=== PATIENT | female | born 1950 | race Caucasian/White ===

== ENCOUNTER → 2018-04-22 | Outpatient (CLI) | payer MEDICARE ==
--- NOTE | 2018-04-22 12:54 | KCIC ---
MRI Lumbar Spine without contrast History: Low back pain, left leg pain Technique: Multiplanar, multi sequential noncontrast MR imaging was performed of the lumbar spine. Contrast: None Comparison: None Findings: Lumbar vertebral body stature and AP alignment are preserved. There is no significant marrow edema. Intervertebral disc spaces are relatively preserved, mild disc desiccation L5-S1 and to lesser degree at L3-L4 and L1-2. Conus terminates at L1. There is a small posterior annular tear at L2-L3. L1-L2: There is negligible disc osteophyte complex. Neural foramina and spinal canal are adequate. There is mild buckling of the ligamentum flavum. L2-L3: Spinal canal and neural foramina are adequate. L3-L4: There is minimal buckling of the ligamentum flavum and facet degenerative change. Spinal canal and neural foramina are adequate. There is small right posterior annular tear. L4-L5: There is mild facet degenerative change. Neural foramina and spinal canal are adequate. L5-S1: There is mild facet degenerative change. Spinal canal is adequate. There is mild posterior narrowing of the right neural foramen, left neural foramen adequate. Impression: 1. There is no significant lumbar spinal stenosis. There is mild narrowing of the right L5-S1 neural foramen. Electronically signed by: Gallo Streeter MD (04/22/2018 12:51 PM) [email or web address]
== END ==
LOC: KCIC MRI 11:58
PROVIDERS: ATTEND Orthopaedic Surgery
DX: M48.07 Spinal stenosis, lumbosacral region (principal); M25.562 Pain in left knee; M79.605 Pain in left leg
CPT/HCPCS: 72148

== ENCOUNTER → 2018-08-19 | Outpatient (CLI) | payer MEDICARE ==
--- NOTE | 2018-08-20 17:12 | SLEEP ---
DATE OF STUDY: 08/19/2018 HOME POLYSOMNOGRAM REPORT OBJECTIVE: The patient is a 67-year-old female with hypersomnia, observed apnea, cardiac disease. Height 63 inches, weight 255 pounds, BMI 45.2 pounds per square inch. Meridian sleep score 8. INTERPRETATION: This is a home study. The apnea-hypopnea index is 18.6 events per hour of sleep. The minimum oxygen saturation is 78%. Snoring occurs a total of 94.7 minutes. Mean heart rate is 49.7 beats per minute, maximum heart rate is 101 beats per minute. IMPRESSION: Abnormal home sleep study showing significant elevation of the apnea/hypopnea index. RECOMMENDATIONS: The patient should be started on CPAP. She could be prescribed automatic CPAP, perhaps with an initial range of 5-15 cm or alternatively she could be returned to the sleep lab for an attended CPAP titration study. The patient should also pursue weight loss and avoid sedatives and alcohol. Thank you for letting us help with the patient's care. RATNA CHATMAN MD DR: SANTO/carroll JOB#: [id number] / [id number] GLENDA Lee MD
== END | disposition home or self-care (01) ==
LOC: RT 10:38
PROVIDERS: ATTEND Internal Medicine Cardiovascular Disease
DX: G47.10 Hypersomnia, unspecified (principal); G47.30 Sleep apnea, unspecified
CPT/HCPCS: G0399

== ENCOUNTER → 2019-04-06 | Outpatient (CLI) | payer MEDICARE ==
--- NOTE | 2019-04-06 10:37 | RAD ---
CT ABDOMEN PELVIS WO CONTRAST History: Splenic artery aneurysm Technique: Noncontrast examination of the abdomen and pelvis. Coronal and sagittal reconstructions were performed. Exposure: One or more of the following individualized dose reduction techniques were utilized for this examination: 1. Automated exposure control 2. Adjustment of the mA and/or kV according to patient size 3. Use of iterative reconstruction technique. Comparison: None. Findings: Lower chest: Calcified bilateral lower lobe pulmonary nodules, likely related to primary illness disease. No consolidation or pleural effusion. Small hiatal hernia. Abdomen and pelvis: Partially calcified lobulated splenic artery aneurysm measures approximately 1.3 x 0.9 cm. Unremarkable noncontrast appearance of the liver, splenic parenchyma, and adrenal glands. Age-related fatty atrophy of the pancreas. No focal mass. No biliary ductal dilatation. Prior cholecystectomy. Normal appearance of the kidneys. No hydronephrosis. No renal, ureteral or urinary bladder stone. Normal appendix. No evidence of bowel obstruction. No pathologic lymphadenopathy. No ascites. Pelvic contents are unremarkable. Bones: No pathologic osseous lesions. Impression: 1. Small partially calcified splenic artery aneurysm. 2. Small hiatal hernia. Electronically signed by: Juarez Marcus DO (04/06/2019 10:34 AM) [facility]
--- NOTE | 2019-04-06 12:06 | CARD ---
MR#: [id number] Date of Study: 04/06/2019 Ordering Physician: GLENDA TORRES, Referring Physician: GLENDA TORRES, Tech: Mela Thomas APPROVED REPORT EXAM: Two-dimensional and M-mode echocardiogram with Doppler and color Doppler. Other Information Quality : Average Technically limited study due to body habitus. INDICATION Atrial Fibrillation RISK FACTORS Hypertension 2D DIMENSIONS RVDd3.3 (2.9-3.5cm)Left Atrium(2D)4.0 (1.6-4.0cm) IVSd1.0 (0.7-1.1cm)Aortic Root(2D)3.0 (2.0-3.7cm) LVDd5.4 (3.9-5.9cm)LVOT Diameter2.0 (1.8-2.4cm) PWd1.2 (0.7-1.1cm)LVDs3.3 (2.5-4.0cm) FS (%) 38.6 %SV97.5 ml LVEF(%)68.4 (>50%) Aortic Valve AoV Peak Ryan.125.9cm/sAoV VTI28.4cm AO Peak GR.6.3mmHgLVOT Peak Ryan.77.0cm/s LVOT VTI 18.18cmAO Mean GR.3mmHg TRICE (VMAX)1.06xx5LZH (VTI)2.00cm2 Mitral Valve MV E Uggiocyq731.7cm/sMV DECEL ORYY148mb MV A Xskitqqq79.4cm/sMV XBF63xv E/A Ratio4.8MVA (PHT)4.99cm2 TDI E/Lateral E'12.9E/Medial E'9.8 Pulmonary Valve PV Peak Umlyskkn35.4cm/sPV Peak Grad.3mmHg Tricuspid Valve TR P. Txycevai255xd/sRAP XRIXYCSB4vrAw TR Peak Gr.65geJtLLZF27cnQc Pulmonary Vein S1 Qoxzozpt82.8cm/sD2 Atcolror31.7cm/s PVa vnicwwgv60erxp LEFT VENTRICLE The left ventricle is normal size. There is mild to moderate concentric left ventricular hypertrophy. The left ventricular systolic function is normal and the ejection fraction is within normal range. T he Ejection Fraction is 50-55%. There is grossly normal LV segmental wall motion. Tissue Doppler imag ing reveals moderate left ventricular diastolic dysfunction. RIGHT VENTRICLE The right ventricle is borderline dilated. There is normal right ventricular wall thickness. The righ t ventricular systolic function is normal. ATRIA The left atrium is moderately dilated. The right atrium is moderately dilated. The interatrial septum is intact with no evidence for an atrial septal defect or patent foramen ovale as noted on 2-D or Do ppler imaging. AORTIC VALVE The aortic valve is normal in structure and function. Doppler and Color Flow revealed no significant aortic regurgitation. There is no significant aortic valvular stenosis. MITRAL VALVE The mitral valve is thickened but opens well. There is no evidence of mitral valve prolapse. There is no mitral valve stenosis. Doppler and Color-flow revealed trace mitral regurgitation. TRICUSPID VALVE The tricuspid valve is normal in structure and function. Doppler and Color Flow revealed moderate tri cuspid regurgitation with an estimated PAP of 36 mmHg. There is no tricuspid valve prolapse or vegeta tion. There is no tricuspid valve stenosis. PULMONIC VALVE The pulmonic valve is not well visualized. Doppler and Color Flow revealed trace to mild pulmonic yoav vular regurgitation. There is no pulmonic valvular stenosis. GREAT VESSELS The aortic root is normal in size. The IVC is normal in size and collapses >50% with inspiration. PERICARDIAL EFFUSION There is no evidence of significant pericardial effusion. Critical Notification Critical Value: No <Conclusion> The left ventricular systolic function is normal and the ejection fraction is within normal range. Th e Ejection Fraction is 50-55%. There is grossly normal LV segmental wall motion. The right ventricle is borderline dilated. Doppler and Color Flow revealed moderate tricuspid regurgitation with an estimated PAP of 36 mmHg. Signed by : Glenda Torres, Electronically Approved : 04/06/2019 12:06:22
== END | disposition home or self-care (01) ==
LOC: CT 08:24
PROVIDERS: ATTEND Internal Medicine Cardiovascular Disease
DX: I08.8 Other rheumatic multiple valve diseases (principal); I72.8 Aneurysm of other specified arteries; K44.9 Diaphragmatic hernia without obstruction or gangrene; R91.8 Other nonspecific abnormal finding of lung field; K86.89 Other specified diseases of pancreas; Z90.49 Acquired absence of other specified parts of digestive tract
CPT/HCPCS: 74176; 93306

== ENCOUNTER 2020-01-28 09:08 | Emergency (ER) | payer MEDICARE ==
[~2020-01-28] VITALS: Ht 160 cm; Wt 115.0 kg
[~2020-01-28 09:08] MED LIST: ACET500T68 PO; APIX5TAB PO; CHOL500062 PO; CYAN50008 PO; GABA300C18 PO; LISI-338 PO; METO50TA6 PO; OMEG-117 PO; PANT40TA77 PO; TRAM50TA PO; [UNRECOGNIZED DRUG - OTHER] PO; occuvite PO
[2020-01-28] MEDS ORDERED: IV NORMAL SALINE 1000ML BAG 1,000 ML IV ONE (10:15)
[2020-01-28 10:18] LABS: BASO # 0.1 x10^3/uL (0.0-0.2); BASO % 1 % (0-3); EOS # 0.1 x10^3/uL (0.0-0.7); EOS % 1 % (0-3); HEMATOCRIT 40.6 % (36.0-47.0); HEMOGLOBIN 13.6 g/dL (12.0-15.5); LYMPH # 1.3 x10^3/uL (1.0-4.8); LYMPH % 10 % (24-48); MEAN CORPUSCULAR HEMOGLOBIN 29 pg (25-35); MEAN CORPUSCULAR HGB CONC 34 g/dL (31-37); MEAN CORPUSCULAR VOLUME 87 fL (79-100); MONO # 0.8 x10^3/uL (0.0-1.1); MONO % 6 % (0-9); NEUT # 10.5 x10^3/uL (1.8-7.7); NEUT % 83 % (31-73); PLATELET COUNT 329 x10^3/uL (140-400); RED BLOOD COUNT 4.66 x10^6/uL (3.50-5.40); RED CELL DISTRIBUTION WIDTH 13.7 % (11.5-14.5); WHITE BLOOD COUNT 12.8 x10^3/uL (4.0-11.0)
--- NOTE | 2020-01-28 10:25 | RAD ---
EXAM: Chest, single view. HISTORY: Shortness of air. COMPARISON: 11/02/2019 FINDINGS: A frontal view of the chest is obtained. There is no infiltrate, pleural effusion or pneumothorax. There is a prominent cardiac silhouette, a component of which is accentuated due to portable technique. IMPRESSION: No acute pulmonary finding. Electronically signed by: Trinidad Whelan MD (01/28/2020 10:22 AM) [id number]
[2020-01-28 10:33] LABS: CALCIUM 8.9 mg/dL (8.5-10.1); CREATININE 1.4 mg/dL (0.6-1.0); GFR 37.5; POTASSIUM 4.3 mmol/L (3.5-5.1)
[2020-01-28 10:37] LABS: ALBUMIN 3.6 g/dL (3.4-5.0); ALBUMIN/GLOBULIN RATIO 0.9 (1.0-1.7); MAGNESIUM 1.7 mg/dL (1.8-2.4); TOTAL BILIRUBIN 0.3 mg/dL (0.2-1.0); TOTAL PROTEIN 7.4 g/dL (6.4-8.2)
--- NOTE | 2020-01-28 10:39 | EKG ---
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
[2020-01-28 10:40] LABS: BILIRUBIN,URINE NEGATIVE (NEG); CLARITY,URINE CLEAR; COLOR,URINE YELLOW; NITRITE,URINE NEGATIVE (NEG); PROTEIN,URINE NEGATIVE (NEG-TRACE); UROBILINOGEN,URINE 0.2 mg/dL (0.2 mg/dL)
--- NOTE | 2020-01-28 10:45 | RAD ---
EXAM: Head CT without contrast. HISTORY: Altered mental status. TECHNIQUE: Computed tomographic images of the head were obtained without contrast. *One or more of the following individualized dose reduction techniques were utilized for this examination: 1. Automated exposure control. 2. Adjustment of the mA and/or kV according to patient size. 3. Use of iterative reconstruction technique. COMPARISON: 11/02/2019. FINDINGS: There is no acute or subacute extra-axial or intraparenchymal hemorrhage. There is no mass effect or midline shift. There is no hydrocephalus. There are areas of decreased attenuation within the cerebral white matter, nonspecific and likely related to chronic small vessel disease. The visualized portions of the orbits, paranasal sinuses and mastoid air cells are unremarkable. No suspicious calvarial lesion is seen. IMPRESSION: No acute intracranial finding. Note is made that MRI is more sensitive for acute infarction. Electronically signed by: Trinidad Whelan MD (01/28/2020 10:42 AM) [id number]
[2020-01-28 10:52] LABS: BACTERIA,URINE 0 /HPF (0-FEW); RBC,URINE 0 /HPF (0-2); SQUAMOUS EPITHELIAL CELL,UR FEW /LPF; WBC,URINE 0 /HPF (0-4)
--- NOTE | 2020-01-28 11:30 | PHYS DOC ---
Past Medical History Past Medical History: CAD, GERD, High Cholesterol, Renal Disease Past Surgical History: Cholecystectomy, Smoking Status: Never Smoker Alcohol Use: None Adult General Chief Complaint Chief Complaint: MULTIPLE COMPLAINTS [facility] HPI Patient is a 69 year old female with history of permanent A. fib who presents with intermittent daily palpitations dizziness and shortness of breath upon standing with exertion. Patient currently asymptomatic Symptom onset was 4 days ago. Patient reports fast pounding heart rate which is resolved with rest. Denies chest pain chest tightness, leg pain or swelling. Patient is currently anticoagulated on Eliquis. No recent illnesses. No other acute symptoms or complaints. Denies history of CAD and CHF. . 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 [] Review of Systems Review of Systems Review of symptoms as per HPI. All other review of symptoms are negative. All other systems were reviewed and found to be within normal limits, except as documented in this note. Current Medications Current Medications Current Medications Medications (Trade) Dose Ordered Sig/Abdoulaye Start Time Stop Time Status Last Admin Dose Admin Sodium Chloride 1,000 ml @ 1,000 mls/hr 1X ONCE 01/28/20 10:15 01/28/20 11:14 DC 01/28/20 10:15 1,000 MLS/HR Allergies Allergies Allergies Coded Allergies Type Severity Reaction Last Updated Verified erythromycin base Allergy Mild "HURTS MY STOMACH REAL BAD" 11/02/19 Yes Physical Exam Physical Exam Constitutional: Well developed, well nourished, no acute distress, non-toxic appearance. [] HENT: Normocephalic, atraumatic, bilateral external ears normal, oropharynx moist, no oral exudates, nose normal. [] Eyes: PERRLA, EOMI, conjunctiva normal, no discharge. [] Neck: Normal range of motion, no tenderness, supple, no stridor. [] Cardiovascular:Heart rate regular rhythm, no murmur [] Lungs & Thorax: Bilateral breath sounds clear to auscultation [] Abdomen: Bowel sounds normal, soft, no tenderness. [] Skin: Warm, dry, no erythema, no rash. [] Back: No tenderness, no CVA tenderness. [] Extremities: No tenderness, no cyanosis, no clubbing, ROM intact, no edema. [] Neurologic: Alert and oriented X 3, normal motor function, normal sensory function, no focal deficits noted. [] Psychologic: Affect normal, judgement normal, mood normal. [] Current Patient Data Vital Signs Vital Signs Date Time Temp Pulse Resp B/P (MAP) Pulse Ox O2 Delivery O2 Flow Rate FiO2 01/28/20 12:16 68 144/85 (104) 98 Room Air 01/28/20 09:16 97.8 16 97.8 Lab Values Laboratory Tests Test 01/28/20 09:20 01/28/20 10:25 White Blood Count 12.8 x10^3/uL (4.0-11.0) H Red Blood Count 4.66 x10^6/uL (3.50-5.40) Hemoglobin 13.6 g/dL (12.0-15.5) Hematocrit 40.6 % (36.0-47.0) Mean Corpuscular Volume 87 fL (79-100) Mean Corpuscular Hemoglobin 29 pg (25-35) Mean Corpuscular Hemoglobin Concent 34 g/dL (31-37) Red Cell Distribution Width 13.7 % (11.5-14.5) Platelet Count 329 x10^3/uL (140-400) Neutrophils (%) (Auto) 83 % (31-73) H Lymphocytes (%) (Auto) 10 % (24-48) L Monocytes (%) (Auto) 6 % (0-9) Eosinophils (%) (Auto) 1 % (0-3) Basophils (%) (Auto) 1 % (0-3) Neutrophils # (Auto) 10.5 x10^3/uL (1.8-7.7) H Lymphocytes # (Auto) 1.3 x10^3/uL (1.0-4.8) Monocytes # (Auto) 0.8 x10^3/uL (0.0-1.1) Eosinophils # (Auto) 0.1 x10^3/uL (0.0-0.7) Basophils # (Auto) 0.1 x10^3/uL (0.0-0.2) Sodium Level 141 mmol/L (136-145) Potassium Level 4.3 mmol/L (3.5-5.1) Chloride Level 103 mmol/L (98-107) Carbon Dioxide Level 27 mmol/L (21-32) Anion Gap 11 (6-14) Blood Urea Nitrogen 15 mg/dL (7-20) Creatinine 1.4 mg/dL (0.6-1.0) H Estimated GFR (Cockcroft-Gault) 37.5 BUN/Creatinine Ratio 11 (6-20) Glucose Level 132 mg/dL (70-99) H Calcium Level 8.9 mg/dL (8.5-10.1) Magnesium Level 1.7 mg/dL (1.8-2.4) L Total Bilirubin 0.3 mg/dL (0.2-1.0) Aspartate Amino Transferase (AST) 16 U/L (15-37) Alanine Aminotransferase (ALT) 23 U/L (14-59) Alkaline Phosphatase 105 U/L (46-116) Troponin I Quantitative < 0.017 ng/mL (0.000-0.055) Total Protein 7.4 g/dL (6.4-8.2) Albumin 3.6 g/dL (3.4-5.0) Albumin/Globulin Ratio 0.9 (1.0-1.7) L Urine Collection Type Unknown Urine Color Yellow Urine Clarity Clear Urine pH 6.0 (<5.0-8.0) Urine Specific [place] 1.010 (1.000-1.030) Urine Protein Negative mg/dL (NEG-TRACE) Urine Glucose (UA) Negative mg/dL (NEG) Urine Ketones (Stick) Negative mg/dL (NEG) Urine Blood Negative (NEG) Urine Nitrite Negative (NEG) Urine Bilirubin Negative (NEG) Urine Urobilinogen Dipstick 0.2 mg/dL (0.2 mg/dL) Urine Leukocyte Esterase Negative (NEG) Urine RBC 0 /HPF (0-2) Urine WBC 0 /HPF (0-4) Urine Squamous Epithelial Cells Few /LPF Urine Bacteria 0 /HPF (0-FEW) Laboratory Tests 01/28/20 09:20 Laboratory Tests 01/28/20 09:20 EKG EKG [EKG: reviewed] Radiology/Procedures Radiology/Procedures [Ct head: NAD CXR: NAD] Course & Med Decision Making Course & Med Decision Making Pertinent Labs and Imaging studies reviewed. (See chart for details) [EKG, lab imaging nondiagnostic. Orthostatic vital signs negative. Patient asymptomatic in the ED. Cardiology service to see the emergency department set patient up for outpatient Holter monitor.] Dragon Disclaimer Dragon Disclaimer This electronic medical record was generated, in whole or in part, using a voice recognition dictation system. Departure Departure Impression: Primary Impression: Palpitations Disposition: ADMITTED INPATIENT Condition: STABLE Referrals: ANTHONY NICHOLSON MD (PCP) KENIA GARCÍA DO January 28, 2020 11:30
[2020-01-28 12:16] VITALS: BP 144/85
== END 2020-01-28 12:22 | disposition home or self-care (01) ==
LOC: ER 09:08
DX: R00.2 Palpitations (principal); R06.02 Shortness of breath; R42 Dizziness and giddiness; I48.20 Chronic atrial fibrillation, unspecified; K21.9 Gastro-esophageal reflux disease without esophagitis; E78.00 Pure hypercholesterolemia, unspecified; Z90.49 Acquired absence of other specified parts of digestive tract; Z98.890 Other specified postprocedural states; Z88.1 Allergy status to other antibiotic agents
CPT/HCPCS: 36415; 70450; 71045; 80053; 81001; 83735; 84484; 85025; 93005; 96360; 96361; 99285; J7030

== ENCOUNTER → 2020-03-31 | Outpatient (CLI) | payer MEDICARE | END | disposition home or self-care (01) | LOC: LAB 13:57 | PROVIDERS: ATTEND Internal Medicine Cardiovascular Disease | DX: Z11.59 Encounter for screening for other viral diseases (principal) | CPT/HCPCS: U0003-CS ==

== ENCOUNTER 2020-04-05 13:29 | Day surgery (SDC) | payer MEDICARE ==
[~2020-04-05 13:29] MED LIST changes: +BENZOCAINE ONE 20% MUCOSAL SPRAY. MM; +IV RINGERS,LACTATED 1000ML 1,000 ML IV SCH; +LIDOCAINE 2% TOPICAL JELLY 30GM TUBE. TP ONE; +LIDOCAINE 2% VISCOUS 15 ML SOLUTION. SWSW ONE
--- NOTE | 2020-04-05 14:23 | EKG ---
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
[2020-04-05] MEDS ORDERED: AMIO200T4 PO (14:33)
[2020-04-05] MEDS ORDERED: PROPOFOL 10 MG/ML (20ML) VIAL. IV ONE (15:09)
[2020-04-05 15:10] LABS: HEMATOCRIT 38.9 % (36.0-47.0); RED BLOOD COUNT 4.45 x10^6/uL (3.50-5.40)
[2020-04-05] MEDS ORDERED: IV 1/2 NORMAL SALINE 1,000 ML IV SCH (15:15)
[2020-04-05 15:18] LABS: CALCIUM 8.8 mg/dL (8.5-10.1); CREATININE 1.2 mg/dL (0.6-1.0); GFR 44.8; POTASSIUM 3.8 mmol/L (3.5-5.1)
[2020-04-05 15:32] LABS: PROTHROMBIN TIME PATIENT 16.2 SEC (11.7-14.0)
--- NOTE | 2020-04-05 15:55 | EKG ---
[facility] [address] [place] [address] Test Date: 2020-04-05 Test Time: 15:53:24 Pat Name: MARICHUY SCHWARTZ Department: Room: Gender: F Rework Machine Operator: SEBASTIEN : 1950 Requested By: GLENDA LERNER Order Number: [id number] Reading MD: Measurements Intervals [place] Rate: 70 P: 50 [place]: 158 QRS: 35 QRSD: 74 T: 27 QT: 452 QTc: 491 Interpretive Statements SINUS RHYTHM PROLONGED QT NO SPECIFIC ECG ABNORMALITIES RI6.02 Compared to ECG 04/05/2020 14:18:00 T-wave abnormality no longer present
[2020-04-05 16:20] VITALS: BP 116/61
--- NOTE | 2020-04-05 16:56 | CARD ---
MR#: [id number] Date of Study: 04/05/2020 Ordering Physician: GLENDA TORRES, Referring Physician: GLENDA TORRES, Tech: Mela Thomas APPROVED REPORT EXAM: Transesophageal echocardiogram with color flow Doppler and Synchronized Cardioversion. INDICATION Atrial Fibrillation RISK FACTORS Hypertension Tricuspid Valve TR P. Ajzycxdr848bs/sRAP [id number] TR Peak Gr.46yaXhHIYR16pjNs Reason For Test : Rule out Intracardiac Thrombus. PROCEDURE After obtaining informed consent, patient underwent transesophageal echo in the PACU. Type of Sedation : General Anesthesia Sedation was administered by Ethel Ornelas. Sedation was achieved with Propofol 200mg intravenously. Transesophageal probe was inserted and advanced into esophagus by Malik Torres MD. The MIL was performed without complications. Synchronized Cardioversion attempted: Successful Synchronized Cardioversion acheived with Joules after 2 attempt(s). Throughout the procedure, the blood pressure, pulse oximetry, cardiac rhythm, and rate were monitored . The patient tolerated the procedure without adverse effects. Recovery from general anesthesia was une ventful and vital signs were stable. LEFT VENTRICLE The left ventricle is normal size. There is normal left ventricular wall thickness. The left ventricu lar systolic function is normal and the ejection fraction is within normal range. The Ejection Fracti on is 55%. There is normal LV segmental wall motion. Tissue Doppler imaging reveals moderate left wanda tricular diastolic dysfunction. No left ventricle thrombus noted on this study. RIGHT VENTRICLE The right ventricle is normal size. There is normal right ventricular wall thickness. The right ventr icular systolic function is normal. ATRIA The left atrium size is normal. The right atrium size is normal. The interatrial septum is intact wit h no evidence for an atrial septal defect or patent foramen ovale as noted on 2-D or Doppler imaging. There is no thrombus noted in the left atrial appendage. AORTIC VALVE The aortic valve is normal in structure and function. Doppler and Color Flow revealed trace aortic re gurgitation. There is no significant aortic valvular stenosis. MITRAL VALVE The mitral valve is normal in structure and function. There is no evidence of mitral valve prolapse. There is no mitral valve stenosis. TRICUSPID VALVE The tricuspid valve is normal in structure and function. Doppler and Color Flow revealed trace tricus pid regurgitation. There is no tricuspid valve stenosis. PULMONIC VALVE The pulmonic valve is not well visualized. GREAT VESSELS The aortic root is normal in size. PERICARDIAL EFFUSION There is no evidence of significant pericardial effusion. There is no pleural effusion. Critical Notification Critical Value: No <Conclusion> The left ventricular systolic function is normal and the ejection fraction is within normal range. Th e Ejection Fraction is 55%. There is normal LV segmental wall motion. Signed by : Glenda Torres, Electronically Approved : 04/05/2020 16:55:42
== END 2020-04-05 16:35 | disposition home or self-care (01) ==
LOC: SURG 13:29
PROVIDERS: ATTEND Internal Medicine Cardiovascular Disease
DX: I48.92 Unspecified atrial flutter (principal); I48.91 Unspecified atrial fibrillation; I10 Essential (primary) hypertension; Z79.899 Other long term (current) drug therapy; Z87.891 Personal history of nicotine dependence
CPT/HCPCS: 36415; 80048; 85027; 85610; 85730; 92960; 93005; 93312; 93320; 93325; J2704

== ENCOUNTER 2020-12-23 11:05 | Inpatient (IN) | payer MEDICARE ==
[~2020-12-23] VITALS: Ht 160 cm; Wt 123.5 kg
[~2020-12-23 11:05] MED LIST changes: +AMIO200T6 PO; -BENZOCAINE ONE 20% MUCOSAL SPRAY. MM; -IV RINGERS,LACTATED 1000ML 1,000 ML IV SCH; -LIDOCAINE 2% TOPICAL JELLY 30GM TUBE. TP ONE; -LIDOCAINE 2% VISCOUS 15 ML SOLUTION. SWSW ONE; -LISI-338 PO; +LISI-517 PO
--- NOTE | 2020-12-23 11:58 | RAD ---
EXAM: Chest, single view. HISTORY: Chest pain. COMPARISON: 01/28/2020 FINDINGS: A frontal view of the chest is obtained. There is no infiltrate, pleural effusion or pneumo thorax. There is a prominent cardiac silhouette. There is a calcified granuloma within the left lower lobe. IMPRESSION: No acute pulmonary finding. Prominent cardiac silhouette. Electronically signed by: Trinidad Whelan MD (12/23/2020 11:56 AM) [id number]
[2020-12-23 11:59] LABS: BASO # 0.1 x10^3/uL (0.0-0.2); BASO % 1 % (0-3); EOS # 0.1 x10^3/uL (0.0-0.7); EOS % 1 % (0-3); HEMATOCRIT 35.8 % (36.0-47.0); HEMOGLOBIN 11.8 g/dL (12.0-15.5); LYMPH % 12 % (24-48); MEAN CORPUSCULAR HEMOGLOBIN 29 pg (25-35); MEAN CORPUSCULAR HGB CONC 33 g/dL (31-37); MEAN CORPUSCULAR VOLUME 89 fL (79-100); MONO # 0.5 x10^3/uL (0.0-1.1); MONO % 7 % (0-9); NEUT # 6.5 x10^3/uL (1.8-7.7); NEUT % 80 % (31-73); PLATELET COUNT 243 x10^3/uL (140-400); RED BLOOD COUNT 4.05 x10^6/uL (3.50-5.40); RED CELL DISTRIBUTION WIDTH 13.5 % (11.5-14.5); WHITE BLOOD COUNT 8.2 x10^3/uL (4.0-11.0)
[2020-12-23 12:02] LABS: CALCIUM 8.4 mg/dL (8.5-10.1); CREATININE 1.4 mg/dL (0.6-1.0); GFR 37.4
[2020-12-23 12:09] LABS: ALBUMIN 3.3 g/dL (3.4-5.0); ALBUMIN/GLOBULIN RATIO 0.8 (1.0-1.7); MAGNESIUM 2.1 mg/dL (1.8-2.4); TOTAL BILIRUBIN 0.4 mg/dL (0.2-1.0); TOTAL PROTEIN 7.5 g/dL (6.4-8.2)
[2020-12-23 12:10] LABS: POTASSIUM 4.9 mmol/L (3.5-5.1)
--- NOTE | 2020-12-23 12:24 | EKG ---
[facility] [address] [place] [address] Test Date: 2020-12-23 Test Time: 11:26:42 Pat Name: MARICHUY SCHWARTZ Department: Room: Gender: F Supervisor Sunglasses: : 1950 Requested By: NEREYDA PAREDES Order Number: [id number] Reading MD: Parveen Torres MD Measurements Intervals [place] Rate: 61 P: 56 MT: 164 QRS: 40 QRSD: 76 T: 29 QT: 450 QTc: 455 Interpretive Statements SINUS RHYTHM Electronically Signed On 12-24-2020 15:45:03 CDT by Parveen Torres MD
--- NOTE | 2020-12-23 12:33 | ED.ADGEN ---
Past Medical History Past Medical History: A-Fib, Anxiety, CAD, GERD, High Cholesterol, Hypertension, IBS, Renal Disease Past Surgical History: Cholecystectomy, Smoking Status: Never Smoker Alcohol Use: None General Adult EDM: Chief Complaint: SHORTNESS OF BREATH HPI: HPI: Patient is a 70 year old female, accompanied by her , who presents to the emergency room with complaints of severe shortness of breath that was worse when she is lying down since last night. Patient reports that 2 days ago she went to her primary care doctor's office and was evaluated for a persistent dry cough that she had been having and evaluation of a abscess in her left groin area. She states that her nurse practitioner squeezed the boil and got it to drain and put her on some antibiotics and gave her a shot of antibiotics at that time. Today she went back to her primary care doctor to have the abscess reevaluated and told the nurse practitioner about the increased shortness of breath, her ELECTRICAL INSTRUMENT REPAIRER advised her to go to the ER for further evaluation and concerns of a [place] embolism. Patient stated that she takes Eliquis daily because of her history of atrial fibrillation. She denied any recent lengthy travel, f lights, or major surgeries. The patient denied any previous history of DVT or PE. She denies any chest pain, palpitations, nausea, vomiting, diarrhea, abdominal pain, headache, fever, or rash. She denies any known exposure to COVID-19, she reported that she had already received 2 COVID-19 immunizations. She reports mild increased swelling of of her lower extremities without any recent injury. The patient currently denies any pain. Review of Systems: Review of Systems: Complete ROS is negative unless otherwise noted in HPI. Allergies: Allergies: Allergies Coded Allergies Type Severity Reaction Last Updated Verified cephalexin Allergy Severe HIVES 12/23/20 Yes erythromycin base Allergy Mild "HURTS MY STOMACH REAL BAD" 11/02/19 Yes Physical Exam: PE: See Above Constitutional: Well developed, well nourished, no acute distress, non-toxic appearance, morbidly obese. [] HENT: Normocephalic, atraumatic, bilateral external ears normal, nose normal. [] Eyes: PERRLA, EOMI, conjunctiva normal, no discharge. [] Neck: Normal range of motion, no stridor. [] Cardiovascular:Heart rate regular rhythm, no murmur Lungs & Thorax: Respirations even and unlabored at rest, no retractions, increased work of breathing with activity, lung sounds clear in upper lobes, diminished and coarse in bases bilaterally Abdomen: soft, no tenderness, no palpable mass, no pulsatile mass Skin: Warm, dry, no erythema, no rash. [] Extremities: No cyanosis, ROM intact, 2+ edema BLE Neurologic: Alert and oriented X 3, no focal deficits noted. [] Psychologic: Affect normal, judgement normal, mood normal. [] Current Patient Data: Labs: Laboratory Tests Test 12/23/20 11:38 12/23/20 11:50 12/23/20 11:58 12/23/20 13:13 D-Dimer (Greta) 0.58 ug/mlFEU (0.00-0.50) H White Blood Count 8.2 x10^3/uL (4.0-11.0) Red Blood Count 4.05 x10^6/uL (3.50-5.40) Hemoglobin 11.8 g/dL (12.0-15.5) L Hematocrit 35.8 % (36.0-47.0) L Mean Corpuscular Volume 89 fL (79-100) Mean Corpuscular Hemoglobin 29 pg (25-35) Mean Corpuscular Hemoglobin Concent 33 g/dL (31-37) Red Cell Distribution Width 13.5 % (11.5-14.5) Platelet Count 243 x10^3/uL (140-400) Neutrophils (%) (Auto) 80 % (31-73) H Lymphocytes (%) (Auto) 12 % (24-48) L Monocytes (%) (Auto) 7 % (0-9) Eosinophils (%) (Auto) 1 % (0-3) Basophils (%) (Auto) 1 % (0-3) Neutrophils # (Auto) 6.5 x10^3/uL (1.8-7.7) Lymphocytes # (Auto) 1.0 x10^3/uL (1.0-4.8) Monocytes # (Auto) 0.5 x10^3/uL (0.0-1.1) Eosinophils # (Auto) 0.1 x10^3/uL (0.0-0.7) Basophils # (Auto) 0.1 x10^3/uL (0.0-0.2) Free Thyroxine 1.22 ng/dL (0.76-1.46) Sodium Level 141 mmol/L (136-145) Potassium Level 4.9 mmol/L (3.5-5.1) Chloride Level 105 mmol/L (98-107) Carbon Dioxide Level 23 mmol/L (21-32) Anion Gap 13 (6-14) Blood Urea Nitrogen 23 mg/dL (7-20) H Creatinine 1.4 mg/dL (0.6-1.0) H Estimated GFR (Cockcroft-Gault) 37.4 BUN/Creatinine Ratio 16 (6-20) Glucose Level 132 mg/dL (70-99) H Calcium Level 8.4 mg/dL (8.5-10.1) L Magnesium Level 2.1 mg/dL (1.8-2.4) Total Bilirubin 0.4 mg/dL (0.2-1.0) Aspartate Amino Transferase (AST) 28 U/L (15-37) Alanine Aminotransferase (ALT) 37 U/L (14-59) Alkaline Phosphatase 89 U/L (46-116) Creatine Kinase 116 U/L (26-192) Creatine Kinase MB (Mass) 1.0 ng/mL (0.0-3.6) Creatine Kinase MB Relative Index 0.9 % (0-4) Troponin I Quantitative < 0.017 ng/mL (0.000-0.055) OB-Vlx-V-Type Natriuretic Peptide 917 pg/mL (0-124) H Total Protein 7.5 g/dL (6.4-8.2) Albumin 3.3 g/dL (3.4-5.0) L Albumin/Globulin Ratio 0.8 (1.0-1.7) L Lipase 43 U/L (73-393) L Urine Collection Type Unknown Urine Color Yellow Urine Clarity Clear Urine pH 6.0 (<5.0-8.0) Urine Specific [place] 1.010 (1.000-1.030) Urine Protein Negative mg/dL (NEG-TRACE) Urine Glucose (UA) Negative mg/dL (NEG) Urine Ketones (Stick) Negative mg/dL (NEG) Urine Blood Negative (NEG) Urine Nitrite Negative (NEG) Urine Bilirubin Negative (NEG) Urine Urobilinogen Dipstick 0.2 mg/dL (0.2 mg/dL) Urine Leukocyte Esterase Negative (NEG) Urine RBC 1-2 /HPF (0-2) Urine WBC 0 /HPF (0-4) Urine Squamous Epithelial Cells Few /LPF Urine Bacteria 0 /HPF (0-FEW) Urine Mucus Slight /LPF Laboratory Tests 12/23/20 11:50 Laboratory Tests 12/23/20 11:58 Vital Signs: Vital Signs Date Time Temp Pulse Resp B/P (MAP) Pulse Ox O2 Delivery O2 Flow Rate FiO2 12/23/20 12:53 50 186/76 (112) 95 Room Air 12/23/20 11:31 98.1 20 98.1 EKG: EK-sinus rhythm, rate 61, no STEMI, read by Dr. Ellison [] Heart Score: C/O Chest Pain: No Risk Factors: Risk Factors: DM, Current or recent (<one month) smoker, HTN, HLP, family history of CAD, obesity. Risk Scores: Score 0 - 3: 2.5% MACE over next 6 weeks - Discharge Home Score 4 - 6: 20.3% MACE over next 6 weeks - Admit for Clinical Observation Score 7 - 10: 72.7% MACE over next 6 weeks - Early Invasive Strategies Radiology/Procedures: Radiology/Procedures: PROCEDURE: CHEST AP ONLY EXAM: Chest, single view. HISTORY: Chest pain. COMPARISON: 01/28/2020 FINDINGS: A frontal view of the chest is obtained. There is no infiltrate, pleural effusion or pneumothorax. There is a prominent cardiac silhouette. There is a calcified granuloma within the left lower lobe. IMPRESSION: No acute pulmonary finding. Prominent cardiac silhouette.[] Course & Med Decision Making: Course & Med Decision Making Pertinent Labs and Imaging studies reviewed. (See chart for details) [id number] with Dr. Connors who is the admitting physician, and care was assumed following discussion of patient. Will admit patient for CHF and dyspnea. Patient's vital signs stable. Patient remains afebrile, appears nontoxic, respirations even and unlabored. Patient will be admitted to the medical telemetry floor. Patient's case and plan of care also discussed with Dr. Ellison [] The patient was seen and interviewed as well as examined at the bedside. The chart was reviewed. The case was discussed. Agree with the plan of care. Salima Disclaimer: Salima Disclaimer: This electronic medical record was generated, in whole or in part, using a voice recognition dictation system. Departure Departure Impression: Primary Impression: CHF (congestive heart failure) Additional Impression: Dyspnea Disposition: ADMITTED INPATIENT Admitting Physician: SOLEDAD Condition: STABLE Referrals: ANTHONY NICHOLSON MD (PCP) Problem Qualifiers Primary Impression: CHF (congestive heart failure) Heart failure type: unspecified Heart failure chronicity: unspecified Qualified Codes: I50.9 - Heart failure, unspecified Additional Impression: Dyspnea Dyspnea type: unspecified Qualified Codes: R06.00 - Dyspnea, unspecified NEREYDA PAREDES [employer]OTE[employer] DEPARTMENT MANAGER Dec 23, 2020 12:33 ALFONZO NARVAEZ DO Dec 24, 2020 04:35
[2020-12-23 13:22] LABS: BILIRUBIN,URINE NEGATIVE (NEG); CLARITY,URINE CLEAR; COLOR,URINE YELLOW; NITRITE,URINE NEGATIVE (NEG); PROTEIN,URINE NEGATIVE (NEG-TRACE); UROBILINOGEN,URINE 0.2 mg/dL (0.2 mg/dL)
--- NOTE | 2020-12-23 13:40 | PDOC1 ---
History and Physical Date of Admission Date of Admission DATE: 12/23/20 TIME: 13:38 Identification/Chief Complaint Chief Complaint DYSPNEA, SNORES AT NIGHT, POSSIBLE CHRISTINA, ACUTE CHF, orthopnea History of Present Illness History of Present Illness Seen in ER today with new onset dyspnea, has suspected CHRISTINA, known severe obesity, diabetes PRO bnp in ER = 950 CR 1.4 recent left groin abscess on amoxil and bactrim 70 YR OLD FEMALE WITH HX gerd, dry cough, cad, a-fib on eliquis, seen with orthopnea, new onset calcified granuloma within the left lower lobe KNOWN Small partially calcified splenic artery aneurysm. , BP POORLY CONTROLLED IN ER ckd stage 3 b Past Medical History Past Medical History Past Medical History: A-Fib, Anxiety, CAD, GERD, High Cholesterol, Hypertension, IBS, Renal Disease Past Surgical History: Cholecystectomy, Smoking Status: Never Smoker Alcohol Use: None fhx obesity Cardiovascular: AFIB, HTN Pulmonary: Other GI: GERD Psych: Anxiety Musculoskeletal: Osteoarthritis Infectious disease: No pertinent hx Renal/: Chronic renal insuff Endocrine: Diabetes Past Surgical History Past Surgical History: Hernia Repair Family History Family History: High Cholestrol, Hypertension Social History Smoke: No ALCOHOL: none Drugs: None Current Medications Current Medications Active Scripts Active Reported Amiodarone Hcl 200 Mg Tablet 200 Mg PO DAILY Eliquis (Apixaban) 5 Mg Tablet 5 Mg PO BID [spectravite women's] 2 Tab.chew PO DAILY Gabapentin (Gabapentin) 300 Mg Capsule 300 Mg PO TID Lisinopril 5 Mg Tablet 20 Mg PO DAILY Pantoprazole Sodium (Pantoprazole Sodium) 40 Mg Tablet.dr 40 Mg PO BID Metoprolol Tartrate 50 Mg Tablet 50 Mg PO BID Acetaminophen 500 Mg Tablet 500 Mg PO PRN Q4-6HRS PRN Tramadol Hcl 50 Mg Tablet 50 Mg PO PRN Q8HRS PRN [occuvite] 1 Tab PO DAILY Vitamin B12 (Cyanocobalamin (Vitamin B-12)) 5,000 Mcg Tab.rapdis 1,000 Mcg PO DAILY Vitamin D3 (Cholecalciferol (Vitamin D3)) 5,000 Unit Tab.rapdis 5,000 Unit PO DAILY Fish Oil 1,200 mg Softgel ([place]-3/Dha/Epa/Fish Oil) 1 Each Capsule.dr 1 Each PO DAILY Allergies Allergies: Coded Allergies: cephalexin (Verified Allergy, Severe, HIVES, 12/23/20) erythromycin base (Verified Allergy, Mild, "HURTS MY STOMACH REAL BAD", 11/02/19) ROS Review of System new onset orthopnea General: YES: Fatigue PSYCHOLOGICAL ROS: No: Anxiety, Behavioral Disorder, Concentration difficultie, Decreased libido, Depression, Disorientation, Hallucinations, Hostility, Irritablity, Memory difficulties, Mood Swings, Obsessive thoughts, Physical abuse, Sexual abuse, Sleep disturbances, Suicidal ideation, Other Eyes: No Blurry vision, No Decreased vision, No Double vision, No Dry eyes, No Excessive tearing, No Eye Pain, No Itchy Eyes, No Loss of vision, No Photophobia, No Scotomata, No Uses contacts, No Uses glasses, No Other HEENT: No: Heacaches, Visual Changes, Hearing change, Nasal congestion, Nasal discharge, Oral lesions, Sinus pain, Sore Throat, Epistaxis, Sneezing, Snoring, Tinnitus, Vertigo, Vocal changes, Other ALLERGY AND IMMUNOLOGY: No: Hives, Insect Bite Sensitivity, Itchy/Watery Eyes, Nasal Congestion, Post Nasal Drip, Seasonal Allergies, Other ENDOCRINE: No: Breast Changes, Galactorrhea, Hair Pattern Changes, Hot Flashes, Malaise/lethargy, Mood Swings, Palpitations, Polydipsia/polyuria, Skin Changes, Temperature Intolerance, Unexpected Weight Changes, Other Respiratory: YES: Cough, Orthopnea, Shortness of breath, SOB with excertion; No: Hemoptysis, Pleuritic Pain, Sputum Changes, Stridor, Tachypnea, Wheezing, Other Cardiovascular: yes Orthopnea; No Chest Pain, No Palpitations, No Paroxysmal Noc. Dyspnea, No Edema, No Lt Headedness, No Other Gastrointestinal: No Nausea, No Vomiting, No Abdominal Pain, No Diarrhea, No Constipation, No Melena, No Hematochezia, No Other Genitourinary: No Dysuria, No Frequency, No Incontinence, No Hematuria, No Retention, No Discharge, No Urgency, No Pain, No Flank Pain, No Other, No , No , No , No , No , No , No Musculoskeletal: No Gait Disturbance, No Joint Pain, No Joint Stiffness, No Joint Swelling, No Muscle Pain, No Muscular Weakness, No Pain In:, No Swelling In:, No Other Neurological: No Behavorial Changes, No Bowel/Bladder ControlChng, No Confusion, No Dizziness, No Gait Disturbance, No Headaches, No Impaired Coord/balance, No Memory Loss, No Numbness/Tingling, No Seizures, No Speech Problems, No Tremors, No Visual Changes, No Weakness, No Other Skin: Yes Skin Lesion Changes; No Dry Skin, No Eczema, No Hair Changes, No Lumps, No Mole Changes, No Mo ttling, No Nail Changes, No Pruritus, No Rash, No Other, No Acne Physical Exam Physical Exam Constitutional: Well developed, well nourished, no acute distress, non-toxic appearance. [] HENT: Normocephalic, atraumatic, bilateral external ears normal, oropharynx moist, no oral exudates, nose normal. [] Eyes: PERRLA, EOMI, conjunctiva normal, no discharge. [] Neck: Normal range of motion, no tenderness, supple, no stridor. [] Cardiovascular:Heart rate regular rhythm, no murmur [] Lungs & Thorax: Bilateral breath sounds clear to auscultation [] Abdomen: Bowel sounds normal, soft, no tenderness, no masses, no pulsatile masses. [] Skin: Warm, dry, no erythema, no rash. [] Back: No tenderness, no CVA tenderness. [] Extremities: No tenderness, no cyanosis, no clubbing, ROM intact, no edema. [] Neurologic: Alert and oriented X 3, normal motor function, normal sensory function, no focal deficits noted. [] Psychologic: Affect normal, judgment normal, mood normal. [] General: Alert, Oriented X3, Cooperative, No acute distress HEENT: Atraumatic, EOMI, Mucous membr. moist/pink Lungs: Clear to auscultation, Normal air movement Heart: RRR, no thrills, no gallops Breasts: Not examined Abdomen: Normal bowel sounds Rectal Exam: not examined, deferred Extremities: No clubbing, No cyanosis Neuro: Normal speech, Strength at 5/5 X4 ext, Cranial nerves 3-12 NL Psych/Mental Status: Mental status NL, Mood NL Vitals Vitals Vital Signs Date Time Temp Pulse Resp B/P (MAP) Pulse Ox O2 Delivery O2 Flow Rate FiO2 12/23/20 11:58 54 169/80 (109) 95 Room Air 12/23/20 11:31 98.1 20 98.1 Labs Labs Laboratory Tests Test 12/23/20 11:38 12/23/20 11:50 12/23/20 11:58 D-Dimer (Greta) 0.58 ug/mlFEU (0.00-0.50) White Blood Count 8.2 x10^3/uL (4.0-11.0) Red Blood Count 4.05 x10^6/uL (3.50-5.40) Hemoglobin 11.8 g/dL (12.0-15.5) Hematocrit 35.8 % (36.0-47.0) Mean Corpuscular Volume 89 fL (79-100) Mean Corpuscular Hemoglobin 29 pg (25-35) Mean Corpuscular Hemoglobin Concent 33 g/dL (31-37) Red Cell Distribution Width 13.5 % (11.5-14.5) Platelet Count 243 x10^3/uL (140-400) Neutrophils (%) (Auto) 80 % (31-73) Lymphocytes (%) (Auto) 12 % (24-48) Monocytes (%) (Auto) 7 % (0-9) Eosinophils (%) (Auto) 1 % (0-3) Basophils (%) (Auto) 1 % (0-3) Neutrophils # (Auto) 6.5 x10^3/uL (1.8-7.7) Lymphocytes # (Auto) 1.0 x10^3/uL (1.0-4.8) Monocytes # (Auto) 0.5 x10^3/uL (0.0-1.1) Eosinophils # (Auto) 0.1 x10^3/uL (0.0-0.7) Basophils # (Auto) 0.1 x10^3/uL (0.0-0.2) Sodium Level 141 mmol/L (136-145) Potassium Level 4.9 mmol/L (3.5-5.1) Chloride Level 105 mmol/L (98-107) Carbon Dioxide Level 23 mmol/L (21-32) Anion Gap 13 (6-14) Blood Urea Nitrogen 23 mg/dL (7-20) Creatinine 1.4 mg/dL (0.6-1.0) Estimated GFR (Cockcroft-Gault) 37.4 BUN/Creatinine Ratio 16 (6-20) Glucose Level 132 mg/dL (70-99) Calcium Level 8.4 mg/dL (8.5-10.1) Magnesium Level 2.1 mg/dL (1.8-2.4) Total Bilirubin 0.4 mg/dL (0.2-1.0) Aspartate Amino Transf (AST/SGOT) 28 U/L (15-37) Alanine Aminotransferase (ALT/SGPT) 37 U/L (14-59) Alkaline Phosphatase 89 U/L (46-116) Creatine Kinase 116 U/L (26-192) Creatine Kinase MB (Mass) 1.0 ng/mL (0.0-3.6) Creatine Kinase MB Relative Index 0.9 % (0-4) Troponin I Quantitative < 0.017 ng/mL (0.000-0.055) SY-Lqa-Z-Type Natriuretic Peptide 917 pg/mL (0-124) Total Protein 7.5 g/dL (6.4-8.2) Albumin 3.3 g/dL (3.4-5.0) Albumin/Globulin Ratio 0.8 (1.0-1.7) Lipase 43 U/L (73-393) Laboratory Tests Test 12/23/20 11:38 12/23/20 11:50 12/23/20 11:58 D-Dimer (Greta) 0.58 ug/mlFEU (0.00-0.50) White Blood Count 8.2 x10^3/uL (4.0-11.0) Red Blood Count 4.05 x10^6/uL (3.50-5.40) Hemoglobin 11.8 g/dL (12.0-15.5) Hematocrit 35.8 % (36.0-47.0) Mean Corpuscular Volume 89 fL (79-100) Mean Corpuscular Hemoglobin 29 pg (25-35) Mean Corpuscular Hemoglobin Concent 33 g/dL (31-37) Red Cell Distribution Width 13.5 % (11.5-14.5) Platelet Count 243 x10^3/uL (140-400) Neutrophils (%) (Auto) 80 % (31-73) Lymphocytes (%) (Auto) 12 % (24-48) Monocytes (%) (Auto) 7 % (0-9) Eosinophils (%) (Auto) 1 % (0-3) Basophils (%) (Auto) 1 % (0-3) Neutrophils # (Auto) 6.5 x10^3/uL (1.8-7.7) Lymphocytes # (Auto) 1.0 x10^3/uL (1.0-4.8) Monocytes # (Auto) 0.5 x10^3/uL (0.0-1.1) Eosinophils # (Auto) 0.1 x10^3/uL (0.0-0.7) Basophils # (Auto) 0.1 x10^3/uL (0.0-0.2) Sodium Level 141 mmol/L (136-145) Potassium Level 4.9 mmol/L (3.5-5.1) Chloride Level 105 mmol/L (98-107) Carbon Dioxide Level 23 mmol/L (21-32) Anion Gap 13 (6-14) Blood Urea Nitrogen 23 mg/dL (7-20) Creatinine 1.4 mg/dL (0.6-1.0) Estimated GFR (Cockcroft-Gault) 37.4 BUN/Creatinine Ratio 16 (6-20) Glucose Level 132 mg/dL (70-99) Calcium Level 8.4 mg/dL (8.5-10.1) Magnesium Level 2.1 mg/dL (1.8-2.4) Total Bilirubin 0.4 mg/dL (0.2-1.0) Aspartate Amino Transf (AST/SGOT) 28 U/L (15-37) Alanine Aminotransferase (ALT/SGPT) 37 U/L (14-59) Alkaline Phosphatase 89 U/L (46-116) Creatine Kinase 116 U/L (26-192) Creatine Kinase MB (Mass) 1.0 ng/mL (0.0-3.6) Creatine Kinase MB Relative Index 0.9 % (0-4) Troponin I Quantitative < 0.017 ng/mL (0.000-0.055) PZ-Xqc-Y-Type Natriuretic Peptide 917 pg/mL (0-124) Total Protein 7.5 g/dL (6.4-8.2) Albumin 3.3 g/dL (3.4-5.0) Albumin/Globulin Ratio 0.8 (1.0-1.7) Lipase 43 U/L (73-393) Images Images Imaging Protocol IMAGE PROTOCOL: Stress Tc-99m/rest Tc-99m 2 days Rest: Stress: Viability: Radiopharm. Tc99m Sestamibi Dose 30.5mCi Img Date 08/31/2020 Inj-Img Time 60min. Stress Admin Site: IV - Left Antecubital Assistant Professor Of Drama: RT Jeni (R)(N) STRESS DATA End Diast. Vol. 148.0ml Av. Heart Rate 58.0bpm End Syst. Vol. 44.0ml CO Index BSA 0.0L/min Myocardial Mass 176.0g Eject. Fraction 70.0% Stress Rates Pk. Fill Rate 1.81EDV/sec LVtime Pk. Fill 309.89msec Pk. Empty Rate 3.27ESV/sec LVtime Pk. Eject 141.60msec /3 Pk. Fill 1.24EDV/sec Stress Scores Regional WT 0.00 Summed WT 0.00 Regional WM 0.00 Summed WM 0.00 LV Perfusion Stress scintigraphic images did not show any significant perfusion defects. Wall Motion Normal left ventricular systolic function with ejection fraction estimated at 65%. LV Perf. Quant 17 Seg. SSS 6.00 Stress Defect Extent (% LAD) 0.00 Rest Defect Extent (% LAD) Rev. Defect Extent (% LAD) Stress Defect Extent (% LCX) 0.00 Rest Defect Extent (% LCX) Rev. Defe ct Extent (% LCX) Stress Defect Extent (% RCA) 15.60 Rest Defect Extent (% RCA) Rev. Defect Extent (% RCA) Stress Defect Extent (% FELECIA) 5.00 Rest Defect Extent (% FELECIA) Rev. Defect Extent (% FELECIA) Conclusion 1. Regadenoson cardioisotope stress test did not show any evidence of ischemia or infarct. 2. Normal left ventricular systolic function with ejection fraction calculated at 65%. 3. Low risk for cardiac events. Signed by : Jessica Aguilar, Electronically Approved : 08/31/2020 13:10:34 DICTATED and SIGNED BY: JESSICA AGUILAR MD DATE: 08/31/20 [id number] 0 Reason For Test : Rule out Intracardiac Thrombus. PROCEDURE After obtaining informed consent, patient underwent transesophageal echo in the PACU. Type of Sedation : General Anesthesia Sedation was administered by Ethel Ornelas. Sedation was achieved with Propofol 200mg intravenously. Transesophageal probe was inserted and advanced into esophagus by Malik Torres MD. The MIL was performed without complications. Synchronized Cardioversion attempted: Successful Synchronized Cardioversion acheived with 360 Joules after 2 attempt(s). Rhythm following Synchronized Cardioversion: Normal Sinus Rhythm Throughout the procedure, the blood pressure, pulse oximetry, cardiac rhythm, and rate were monitored. The patient tolerated the procedure without adverse effects. Recovery from general anesthesia was uneventful and vital signs were stable. LEFT VENTRICLE The left ventricle is normal size. There is normal left ventricular wall thickness. The left ventricular systolic function is normal and the ejection fraction is within normal range. The Ejection Fraction is 55%. There is normal LV segmental wall motion. Tissue Doppler imaging reveals moderate left ventricular diastolic dysfunction. No left ventricle thrombus noted on this study. RIGHT VENTRICLE The right ventricle is normal size. There is normal right ventricular wall thickness. The right ventricular systolic function is normal. ATRIA The left atrium size is normal. The right atrium size is normal. The interatrial septum is intact with no evidence for an atrial septal defect or patent foramen ovale as noted on 2-D or Doppler imaging. There is no thrombus noted in the left atrial appendage. AORTIC VALVE The aortic valve is normal in structure and function. Doppler and Color Flow revealed trace aortic regurgitation. There is no significant aortic valvular stenosis. MITRAL VALVE The mitral valve is normal in structure and function. There is no evidence of mitral valve prolapse. There is no mitral valve stenosis. TRICUSPID VALVE The tricuspid valve is normal in structure and function. Doppler and Color Flow revealed trace tricuspid regurgitation. There is no tricuspid valve stenosis. PULMONIC VALVE The pulmonic valve is not well visualized. GREAT VESSELS The aortic root is normal in size. PERICARDIAL EFFUSION There is no evidence of significant pericardial effusion. There is no pleural effusion. Critical Notification Critical Value: No <Conclusion> The left ventricular systolic function is normal and the ejection fraction is within normal range. The Ejection Fraction is 55%. There is normal LV segmental wall motion. Successful CVN to SR with 360 Joules Electronically Approved : 04/05/2020 16:56:21 DICTATED AND SIGNED BY: GLENDA TORRES MD DATE: 04/05/20 1658 itral Valve MV E Velocity 122.7cm/s MV DECEL TIME 152ms MV A Velocity 25.4cm/s MV PHT 44ms E/A Ratio 4.8 MVA (PHT) 4.99cm2 TDI E/Lateral E' 12.9 E/Medial E' 9.8 Pulmonary Valve PV Peak Velocity 79.4cm/s PV Peak Grad. 3mmHg Tricuspid Valve TR P. Velocity 248cm/s RAP ESTIMATE 3mmHg TR Peak Gr. 33mmHg RVSP 36mmHg Pulmonary Vein S1 Velocity 39.8cm/s D2 Velocity 73.7cm/s PVa duration 94msec LEFT VENTRICLE The left ventricle is normal size. There is mild to moderate concentric left ventricular hypertrophy. The left ventricular systolic function is normal and the ejection fraction is within normal range. The Ejection Fraction is 50-55%. There is grossly normal LV segmental wall motion. Tissue Doppler imaging reveals moderate left ventricular diastolic dysfunction. RIGHT VENTRICLE The right ventricle is borderline dilated. There is normal right ventricular wall thickness. The right ventricular systolic function is normal. ATRIA The left atrium is moderately dilated. The right atrium is moderately dilated. The interatrial septum is intact with no evidence for an atrial septal defect or patent foramen ovale as noted on 2-D or Doppler imaging. AORTIC VALVE The aortic valve is normal in structure and function. Doppler and Color Flow revealed no significant aortic regurgitation. There is no significant aortic valvular stenosis. MITRAL VALVE The mitral valve is thickened but opens well. There is no evidence of mitral valve prolapse. There is no mitral valve stenosis. Doppler and Color-flow revealed trace mitral regurgitation. TRICUSPID VALVE The tricuspid valve is normal in structure and function. Doppler and Color Flow revealed moderate tricuspid regurgitation with an estimated PAP of 36 mmHg. There is no tricuspid valve prolapse or vegetation. There is no tricuspid valve stenosis. PULMONIC VALVE The pulmonic valve is not well visualized. Doppler and Color Flow revealed trace to mild pulmonic valvular regurgitation. There is no pulmonic valvular stenosis. GREAT VESSELS The aortic root is normal in size. The IVC is normal in size and collapses >50% with inspiration. PERICARDIAL EFFUSION There is no evidence of significant pericardial effusion. Critical Notification Critical Value: No <Conclusion> The left ventricular systolic function is normal and the ejection fraction is within normal range. The Ejection Fraction is 50-55%. There is grossly normal LV segmental wall motion. The right ventricle is borderline dilated. Doppler and Color Flow revealed moderate tricuspid regurgitation with an estimated PAP of 36 mmHg. Signed by : Glenda Torres, PATIENT: MARICHUY SCHWARTZ ACCOUNT: [id number] : 1950 LOCATION: ER AGE: 70 SEX: F EXAM STATUS: PRE ER ORD. PHYSICIAN: NEREYDA PAREDES APRN REASON: chest pain, soa PROCEDURE: CHEST AP ONLY EXAM: Chest, single view. HISTORY: Chest pain. COMPARISON: 01/28/2020 FINDINGS: A frontal view of the chest is obtained. There is no infiltrate, pleural effusion or pneumothorax. There is a prominent cardiac silhouette. There is a calcified granuloma within the left lower lobe. IMPRESSION: No acute pulmonary finding. Prominent cardiac silhouette. Electronically signed by: Trinidad Anne MD (12/23/2020 11:56 AM) [id number] DICTATED and SIGNED BY: TRINIDAD ANNE MD DATE: 12/23/20 [id number] VTE Prophylaxis Ordered VTE Prophylaxis Devices: No VTE Pharmacological Prophylaxi: Yes Assessment/Plan Assessment/Plan IMPRESSION Acute dyspnea HX A FIB ON ELIQUIS Acute diastolic CHF moderate tricuspid regurgitation with an estimated PAP of 36 mmHg. severe morbid obesity LIKELY CHRISTINA Successful CVN to SR with 360 Joules 04-05-2020 calcified granuloma within the left lower lobe Small partially calcified splenic artery aneurysm. ckd stage 3 b diabetes recent left groin abscess ANXIETY HYPERLIPIDEMIA PLAN IV LASIX X 1 IN ER tele Cardiology consult home meds ADMIT ACCUCHECKS SS INSULIN A1C AVOID Nephrotoxic meds nephrology consult IV HYDRALAZINE 10 MG Q 4 HRS PRN BP SUPPORT D/W ER Justifications for Admission Other Justification CAROL PRUITT MD Dec 23, 2020 13:40
[2020-12-23 13:45] LABS: BACTERIA,URINE 0 /HPF (0-FEW); WBC,URINE 0 /HPF (0-4)
[2020-12-23] MEDS ORDERED: FUROSEMIDE 40 MG/4 ML VIAL. IVP ONE (13:45)
[2020-12-23 16:36] VITALS: BP 137/61
[2020-12-23] MEDS ORDERED: AMOX875T PO (16:44)
[2020-12-23] MEDS ORDERED: SULF1TAB24 PO (16:44)
[2020-12-23] MEDS ORDERED: DRON400T6 PO (16:44)
[2020-12-23] MEDS ORDERED: ONDA4TAB12 PO (16:44)
[2020-12-23] MEDS ORDERED: traMADol 50 MG TABLET PO PRN (17:45)
[2020-12-23] MEDS ORDERED: ONDANSETRON ODT 4 MG TAB.RAPDIS. PO PRN (17:45)
[2020-12-23 19:00] VITALS: BP 123/63
[2020-12-23] MEDS ORDERED: hydrALAZINE 20 MG/ML VIAL. IVP PRN (20:30)
[2020-12-23] MEDS ORDERED: DEXTROSE 50% 25 GM / 50ML DISP.SYRIN. IV PRN (20:45)
[2020-12-23] MEDS: APIXABAN 5 MG TABLET. PO SCH (20:54)
[2020-12-23] MEDS: DRONEDARONE HCL 400 MG TABLET PO SCH (20:54)
[2020-12-23] MEDS: METOPROLOL TART IMMED RELEASE 50 MG TABLET. PO SCH (20:56)
[2020-12-23] MEDS: AMOXICILLIN 875 MG PO SCH (20:56)
[2020-12-23] MEDS: PANTOPRAZOLE 40 MG TABLET.DR. PO SCH (20:56)
[2020-12-23] MEDS: SMZ/TMP 800/160MG TABLET. PO SCH (20:56)
[2020-12-23] MEDS: GABAPENTIN 300 MG CAPSULE. PO SCH (20:56)
[2020-12-23] MEDS: LISINOPRIL 10 MG TABLET PO SCH (20:56)
[2020-12-23 23:00] VITALS: BP 100/44
[2020-12-24 03:00] VITALS: BP 104/53
[2020-12-24 05:39] LABS: BASO # 0.1 x10^3/uL (0.0-0.2); BASO % 1 % (0-3); EOS # 0.2 x10^3/uL (0.0-0.7); EOS % 2 % (0-3); HEMATOCRIT 33.6 % (36.0-47.0); HEMOGLOBIN 11.3 g/dL (12.0-15.5); LYMPH # 1.6 x10^3/uL (1.0-4.8); LYMPH % 21 % (24-48); MEAN CORPUSCULAR HEMOGLOBIN 30 pg (25-35); MEAN CORPUSCULAR HGB CONC 34 g/dL (31-37); MEAN CORPUSCULAR VOLUME 88 fL (79-100); MONO # 0.8 x10^3/uL (0.0-1.1); MONO % 10 % (0-9); NEUT # 5.3 x10^3/uL (1.8-7.7); NEUT % 67 % (31-73); PLATELET COUNT 240 x10^3/uL (140-400); RED CELL DISTRIBUTION WIDTH 13.8 % (11.5-14.5)
[2020-12-24 06:02] LABS: CALCIUM 8.2 mg/dL (8.5-10.1); CREATININE 1.6 mg/dL (0.6-1.0); GFR 32.1; PHOSPHORUS 4.4 mg/dL (2.6-4.7)
[2020-12-24 07:00] VITALS: BP 121/62
[2020-12-24] MEDS: INSULIN LISPRO 300 UNITS/3 ML VIAL. SQ SCH ×3 (08:00→17:00)
[2020-12-24] MEDS: METOPROLOL TART IMMED RELEASE 50 MG TABLET. PO SCH ×2 (09:00→21:00)
[2020-12-24] MEDS: AMOXICILLIN 875 MG PO SCH ×2 (09:30→21:00)
[2020-12-24] MEDS: DRONEDARONE HCL 400 MG TABLET PO SCH ×2 (09:30→21:00)
[2020-12-24] MEDS: CHOLECALCIFEROL (VITAMIN D3) 5,000 UNIT CAPSULE PO SCH (09:31)
[2020-12-24] MEDS: OMEGA-3 FATTY ACIDS/FISH OIL 1,000 MG CAPSULE. PO SCH (09:31)
[2020-12-24] MEDS: APIXABAN 5 MG TABLET. PO SCH ×2 (09:31→21:00)
[2020-12-24] MEDS: MULTIVITAMIN I-VITE TABLET. PO SCH (09:31)
[2020-12-24] MEDS: PANTOPRAZOLE 40 MG TABLET.DR. PO SCH ×2 (09:31→16:33)
[2020-12-24] MEDS: GABAPENTIN 300 MG CAPSULE. PO SCH ×3 (09:31→21:00)
[2020-12-24] MEDS: SMZ/TMP 800/160MG TABLET. PO SCH ×2 (09:31→21:00)
[2020-12-24 11:00] VITALS: BP 106/55
--- NOTE | 2020-12-24 11:14 | PDOC ---
PROGRESS NOTES Date of Service: DATE: 12/24/20 TIME: 11:14 Chief Complaint Chief Complaint Assessment/Plan Assessment/Plan IMPRESSION Acute dyspnea HX A FIB ON ELIQUIS Acute diastolic CHF moderate tricuspid regurgitation with an estimated PAP of 36 mmHg. severe morbid obesity LIKELY CHRISTINA Successful CVN to SR with 360 Joules 04-05-2020 calcified granuloma within the left lower lobe Small partially calcified splenic artery aneurysm. ckd stage 3 b cr up to 1.6 CKD DUE TO DM II AND HTN. diabetes recent left groin abscess ANXIETY HYPERLIPIDEMIA BRADYCARDIA NORMOCYTIC ANEMIA PLAN IV LASIX X 1 IN ER tele Cardiology consult home meds ADMIT ACCUCHECKS SS INSULIN A1C AVOID Nephrotoxic meds nephrology consult IV HYDRALAZINE 10 MG Q 4 HRS PRN BP SUPPORT 6 MIN WALK D/W RN Justifications for Admission Other Justification History of Present Illness History of Present Illness Identification/Chief Complaint Chief Complaint DYSPNEA, SNORES AT NIGHT, POSSIBLE CHRISTINA, ACUTE CHF, orthopnea History of Present Illness History of Present Illness Seen in ER today with new onset dyspnea, has suspected CHRISTINA, known severe obesity, diabetes PRO bnp in ER = 950 CR 1.4 recent left groin abscess on amoxil and bactrim 70 YR OLD FEMALE WITH HX gerd, dry cough, cad, a-fib on eliquis, seen with orthopnea, new onset calcified granuloma within the left lower lobe KNOWN Small partially calcified splenic artery aneurysm. , BP POORLY CONTROLLED IN ER ckd stage 3 b Past Medical History Past Medical History Past Medical History: A-Fib, Anxiety, CAD, GERD, High Cholesterol, Hypertensi on, IBS, Renal Disease Past Surgical History: Cholecystectomy, Smoking Status: Never Smoker Alcohol Use: None fhx obesity Cardiovascular: AFIB, HTN Pulmonary: Other GI: GERD Psych: Anxiety Musculoskeletal: Osteoarthritis Infectious disease: No pertinent hx Renal/: Chronic renal insuff Endocrine: Diabetes Past Surgical History Past Surgical History: Hernia Repair Family History Family History: High Cholestrol, Hypertension Social History Smoke: No ALCOHOL: none Drugs: None Current Medications Current Medications Active Scripts Active Reported Amiodarone Hcl 200 Mg Tablet 200 Mg PO DAILY Eliquis (Apixaban) 5 Mg Tablet 5 Mg PO BID [spectravite women's] 2 Tab.chew PO DAILY Gabapentin (Gabapentin) 300 Mg Capsule 300 Mg PO TID Lisinopril 5 Mg Tablet 20 Mg PO DAILY Pantoprazole Sodium (Pantoprazole Sodium) 40 Mg Tablet.dr 40 Mg PO BID Metoprolol Tartrate 50 Mg Tablet 50 Mg PO BID Acetaminophen 500 Mg Tablet 500 Mg PO PRN Q4-6HRS PRN Tramadol Hcl 50 Mg Tablet 50 Mg PO PRN Q8HRS PRN [occuvite] 1 Tab PO DAILY Vitamin B12 (Cyanocobalamin (Vitamin B-12)) 5,000 Mcg Tab.rapdis 1,000 Mcg PO DAILY Vitamin D3 (Cholecalciferol (Vitamin D3)) 5,000 Unit Tab.rapdis 5,000 Unit PO DAILY Fish Oil 1,200 mg Softgel ([place]-3/Dha/Epa/Fish Oil) 1 Each Capsule.dr 1 Each PO DAILY Allergies Allergies: Coded Allergies: cephalexin (Verified Allergy, Severe, HIVES, 12/23/20) erythromycin base (Verified Allergy, Mild, "HURTS MY STOMACH REAL BAD", 11/02/19) ROS Review of System new onset orthopnea General: YES: Fatigue PSYCHOLOGICAL ROS: No: Anxiety, Behavioral Disorder, Concentration difficultie, Decreased libido, Depression, Disorientation, Hallucinations, Hostility, Irritablity, Memory difficulties, Mood Swings, Obsessive thoughts, Physical abuse, Sexual abuse, Sleep disturbances, Suicidal ideation, Other Eyes: No Blurry vision, No Decreased vision, No Double vision, No Dry eyes, No Excessive tearing, No Eye Pain, No Itchy Eyes, No Loss of vision, No Photophobia, No Scotomata, No Uses contacts, No Uses glasses, No Other HEENT: No: Heacaches, Visual Changes, Hearing change, Nasal congestion, Nasal discharge, Oral lesions, Sinus pain, Sore Throat, Epistaxis, Sneezing, Snoring, Tinnitus, Vertigo, Vocal changes, Other ALLERGY AND IMMUNOLOGY: No: Hives, Insect Bite Sensitivity, Itchy/Watery Eyes, Nasal Congestion, Post Nasal Drip, Seasonal Allergies, Other ENDOCRINE: No: Breast Changes, Galactorrhea, Hair Pattern Changes, Hot Flashes, Malaise/lethargy, Mood Swings, Palpitations, Polydipsia/polyuria, Skin Changes, Temperature Intolerance, Unexpected Weight Changes, Other Respiratory: YES: Cough, Orthopnea, Shortness of breath, SOB with excertion; No: Hemoptysis, Pleuritic Pain, Sputum Changes, Stridor, Tachypnea, Wheezing, Other Cardiovascular: yes Orthopnea; No Chest Pain, No Palpitations, No Paroxysmal Noc. Dyspnea, No Edema, No Lt Headedness, No Other Gastrointestinal: No Nausea, No Vomiting, No Abdominal Pain, No Diarrhea, No Constipation, No Melena, No Hematochezia, No Other Genitourinary: No Dysuria, No Frequency, No Incontinence, No Hematuria, No Retention, No Discharge, No Urgency, No Pain, No Flank Pain, No Other, No , No , No , No , No , No , No Musculoskeletal: No Gait Disturbance, No Joint Pain, No Joint Stiffness, No Joint Swelling, No Muscle Pain, No Muscular Weakness, No Pain In:, No Swelling In:, No Other Neurological: No Behavorial Changes, No Bowel/Bladder ControlChng, No Confusi on, No Dizziness, No Gait Disturbance, No Headaches, No Impaired Coord/balance, No Memory Loss, No Numbness/Tingling, No Seizures, No Speech Problems, No Tremors, No Visual Changes, No Weakness, No Other Skin: Yes Skin Lesion Changes; No Dry Skin, No Eczema, No Hair Changes, No Lumps, No Mole Changes, No Mottling, No Nail Changes, No Pruritus, No Rash, No Other, No Acne 4-24 ckd stage 3 b cr up to 1.6 diabetes recent left groin abscess ANXIETY HYPERLIPIDEMIA d/w RN Vitals Vitals Vital Signs Date Time Temp Pulse Resp B/P (MAP) Pulse Ox O2 Delivery O2 Flow Rate FiO2 12/24/20 09:30 50 121/62 12/24/20 07:52 Room Air 12/24/20 07:00 98.3 18 95 98.3 Physical Exam General: Alert, Oriented X3, Cooperative, No acute distress Abdomen: Normal bowel sounds Extremities: No clubbing, No cyanosis Labs LABS Laboratory Tests Test 12/23/20 11:38 12/23/20 11:50 12/23/20 11:58 12/23/20 13:13 D-Dimer (Greta) 0.58 ug/mlFEU (0.00-0.50) White Blood Count 8.2 x10^3/uL (4.0-11.0) Red Blood Count 4.05 x10^6/uL (3.50-5.40) Hemoglobin 11.8 g/dL (12.0-15.5) Hematocrit 35.8 % (36.0-47.0) Mean Corpuscular Volume 89 fL (79-100) Mean Corpuscular Hemoglobin 29 pg (25-35) Mean Corpuscular Hemoglobin Concent 33 g/dL (31-37) Red Cell Distribution Width 13.5 % (11.5-14.5) Platelet Count 243 x10^3/uL (140-400) Neutrophils (%) (Auto) 80 % (31-73) Lymphocytes (%) (Auto) 12 % (24-48) Monocytes (%) (Auto) 7 % (0-9) Eosinophils (%) (Auto) 1 % (0-3) Basophils (%) (Auto) 1 % (0-3) Neutrophils # (Auto) 6.5 x10^3/uL (1.8-7.7) Lymphocytes # (Auto) 1.0 x10^3/uL (1.0-4.8) Monocytes # (Auto) 0.5 x10^3/uL (0.0-1.1) Eosinophils # (Auto) 0.1 x10^3/uL (0.0-0.7) Basophils # (Auto) 0.1 x10^3/uL (0.0-0.2) Free Thyroxine 1.22 ng/dL (0.76-1.46) Sodium Level 141 mmol/L (136-145) Potassium Level 4.9 mmol/L (3.5-5.1) Chloride Level 105 mmol/L (98-107) Carbon Dioxide Level 23 mmol/L (21-32) Anion Gap 13 (6-14) Blood Urea Nitrogen 23 mg/dL (7-20) Creatinine 1.4 mg/dL (0.6-1.0) Estimated GFR (Cockcroft-Gault) 37.4 BUN/Creatinine Ratio 16 (6-20) Glucose Level 132 mg/dL (70-99) Calcium Level 8.4 mg/dL (8.5-10.1) Magnesium Level 2.1 mg/dL (1.8-2.4) Total Bilirubin 0.4 mg/dL (0.2-1.0) Aspartate Amino Transf (AST/SGOT) 28 U/L (15-37) Alanine Aminotransferase (ALT/SGPT) 37 U/L (14-59) Alkaline Phosphatase 89 U/L (46-116) Creatine Kinase 116 U/L (26-192) Creatine Kinase MB (Mass) 1.0 ng/mL (0.0-3.6) Creatine Kinase MB Relative Index 0.9 % (0-4) Troponin I Quantitative < 0.017 ng/mL (0.000-0.055) TT-Pvu-D-Type Natriuretic Peptide 917 pg/mL (0-124) Total Protein 7.5 g/dL (6.4-8.2) Albumin 3.3 g/dL (3.4-5.0) Albumin/Globulin Ratio 0.8 (1.0-1.7) Lipase 43 U/L (73-393) Urine Collection Type Unknown Urine Color Yellow Urine Clarity Clear Urine pH 6.0 (<5.0-8.0) Urine Specific [place] 1.010 (1.000-1.030) Urine Protein Negative mg/dL (NEG-TRACE) Urine Glucose (UA) Negative mg/dL (NEG) Urine Ketones (Stick) Negative mg/dL (NEG) Urine Blood Negative (NEG) Urine Nitrite Negative (NEG) Urine Bilirubin Negative (NEG) Urine Urobilinogen Dipstick 0.2 mg/dL (0.2 mg/dL) Urine Leukocyte Esterase Negative (NEG) Urine RBC 1-2 /HPF (0-2) Urine WBC 0 /HPF (0-4) Urine Squamous Epithelial Cells Few /LPF Urine Bacteria 0 /HPF (0-FEW) Urine Mucus Slight /LPF Test 12/24/20 05:00 12/24/20 09:28 White Blood Count 8.0 x10^3/uL (4.0-11.0) Red Blood Count 3.80 x10^6/uL (3.50-5.40) Hemoglobin 11.3 g/dL (12.0-15.5) Hematocrit 33.6 % (36.0-47.0) Mean Corpuscular Volume 88 fL (79-100) Mean Corpuscular Hemoglobin 30 pg (25-35) Mean Corpuscular Hemoglobin Concent 34 g/dL (31-37) Red Cell Distribution Width 13.8 % (11.5-14.5) Platelet Count 240 x10^3/uL (140-400) Neutrophils (%) (Auto) 67 % (31-73) Lymphocytes (%) (Auto) 21 % (24-48) Monocytes (%) (Auto) 10 % (0-9) Eosinophils (%) (Auto) 2 % (0-3) Basophils (%) (Auto) 1 % (0-3) Neutrophils # (Auto) 5.3 x10^3/uL (1.8-7.7) Lymphocytes # (Auto) 1.6 x10^3/uL (1.0-4.8) Monocytes # (Auto) 0.8 x10^3/uL (0.0-1.1) Eosinophils # (Auto) 0.2 x10^3/uL (0.0-0.7) Basophils # (Auto) 0.1 x10^3/uL (0.0-0.2) Sodium Level 144 mmol/L (136-145) Potassium Level 4.0 mmol/L (3.5-5.1) Chloride Level 104 mmol/L (98-107) Carbon Dioxide Level 30 mmol/L (21-32) Anion Gap 10 (6-14) Blood Urea Nitrogen 23 mg/dL (7-20) Creatinine 1.6 mg/dL (0.6-1.0) Estimated GFR (Cockcroft-Gault) 32.1 Glucose Level 102 mg/dL (70-99) Calcium Level 8.2 mg/dL (8.5-10.1) Phosphorus Level 4.4 mg/dL (2.6-4.7) Albumin 3.0 g/dL (3.4-5.0) Glucose (Fingerstick) 155 mg/dL (70-99) Assessment and Plan Assessmemt and Plan Problems Medical Problems: (1) CHF (congestive heart failure) Status: Acute (2) Dyspnea Status: Acute Comment Review of Relevant I have reviewed the following items joshua (where applicable) has been applied. Labs Laboratory Tests Test 12/23/20 11:38 12/23/20 11:50 12/23/20 11:58 12/23/20 13:13 D-Dimer (Greta) 0.58 ug/mlFEU (0.00-0.50) White Blood Count 8.2 x10^3/uL (4.0-11.0) Red Blood Count 4.05 x10^6/uL (3.50-5.40) Hemoglobin 11.8 g/dL (12.0-15.5) Hematocrit 35.8 % (36.0-47.0) Mean Corpuscular Volume 89 fL (79-100) Mean Corpuscular Hemoglobin 29 pg (25-35) Mean Corpuscular Hemoglobin Concent 33 g/dL (31-37) Red Cell Distribution Width 13.5 % (11.5-14.5) Platelet Count 243 x10^3/uL (140-400) Neutrophils (%) (Auto) 80 % (31-73) Lymphocytes (%) (Auto) 12 % (24-48) Monocytes (%) (Auto) 7 % (0-9) Eosinophils (%) (Auto) 1 % (0-3) Basophils (%) (Auto) 1 % (0-3) Neutrophils # (Auto) 6.5 x10^3/uL (1.8-7.7) Lymphocytes # (Auto) 1.0 x10^3/uL (1.0-4.8) Monocytes # (Auto) 0.5 x10^3/uL (0.0-1.1) Eosinophils # (Auto) 0.1 x10^3/uL (0.0-0.7) Basophils # (Auto) 0.1 x10^3/uL (0.0-0.2) Free Thyroxine 1.22 ng/dL (0.76-1.46) Sodium Level 141 mmol/L (136-145) Potassium Level 4.9 mmol/L (3.5-5.1) Chloride Level 105 mmol/L (98-107) Carbon Dioxide Level 23 mmol/L (21-32) Anion Gap 13 (6-14) Blood Urea Nitrogen 23 mg/dL (7-20) Creatinine 1.4 mg/dL (0.6-1.0) Estimated GFR (Cockcroft-Gault) 37.4 BUN/Creatinine Ratio 16 (6-20) Glucose Level 132 mg/dL (70-99) Calcium Level 8.4 mg/dL (8.5-10.1) Magnesium Level 2.1 mg/dL (1.8-2.4) Total Bilirubin 0.4 mg/dL (0.2-1.0) Aspartate Amino Transf (AST/SGOT) 28 U/L (15-37) Alanine Aminotransferase (ALT/SGPT) 37 U/L (14-59) Alkaline Phosphatase 89 U/L (46-116) Creatine Kinase 116 U/L (26-192) Creatine Kinase MB (Mass) 1.0 ng/mL (0.0-3.6) Creatine Kinase MB Relative Index 0.9 % (0-4) Troponin I Quantitative < 0.017 ng/mL (0.000-0.055) NZ-Kyn-Z-Type Natriuretic Peptide 917 pg/mL (0-124) Total Protein 7.5 g/dL (6.4-8.2) Albumin 3.3 g/dL (3.4-5.0) Albumin/Globulin Ratio 0.8 (1.0-1.7) Lipase 43 U/L (73-393) Urine Collection Type Unknown Urine Color Yellow Urine Clarity Clear Urine pH 6.0 (<5.0-8.0) Urine Specific [place] 1.010 (1.000-1.030) Urine Protein Negative mg/dL (NEG-TRACE) Urine Glucose (UA) Negative mg/dL (NEG) Urine Ketones (Stick) Negative mg/dL (NEG) Urine Blood Negative (NEG) Urine Nitrite Negative (NEG) Urine Bilirubin Negative (NEG) Urine Urobilinogen Dipstick 0.2 mg/dL (0.2 mg/dL) Urine Leukocyte Esterase Negative (NEG) Urine RBC 1-2 /HPF (0-2) Urine WBC 0 /HPF (0-4) Urine Squamous Epithelial Cells Few /LPF Urine Bacteria 0 /HPF (0-FEW) Urine Mucus Slight /LPF Test 12/24/20 05:00 12/24/20 09:28 White Blood Count 8.0 x10^3/uL (4.0-11.0) Red Blood Count 3.80 x10^6/uL (3.50-5.40) Hemoglobin 11.3 g/dL (12.0-15.5) Hematocrit 33.6 % (36.0-47.0) Mean Corpuscular Volume 88 fL (79-100) Mean Corpuscular Hemoglobin 30 pg (25-35) Mean Corpuscular Hemoglobin Concent 34 g/dL (31-37) Red Cell Distribution Width 13.8 % (11.5-14.5) Platelet Count 240 x10^3/uL (140-400) Neutrophils (%) (Auto) 67 % (31-73) Lymphocytes (%) (Auto) 21 % (24-48) Monocytes (%) (Auto) 10 % (0-9) Eosinophils (%) (Auto) 2 % (0-3) Basophils (%) (Auto) 1 % (0-3) Neutrophils # (Auto) 5.3 x10^3/uL (1.8-7.7) Lymphocytes # (Auto) 1.6 x10^3/uL (1.0-4.8) Monocytes # (Auto) 0.8 x10^3/uL (0.0-1.1) Eosinophils # (Auto) 0.2 x10^3/uL (0.0-0.7) Basophils # (Auto) 0.1 x10^3/uL (0.0-0.2) Sodium Level 144 mmol/L (136-145) Potassium Level 4.0 mmol/L (3.5-5.1) Chloride Level 104 mmol/L (98-107) Carbon Dioxide Level 30 mmol/L (21-32) Anion Gap 10 (6-14) Blood Urea Nitrogen 23 mg/dL (7-20) Creatinine 1.6 mg/dL (0.6-1.0) Estimated GFR (Cockcroft-Gault) 32.1 Glucose Level 102 mg/dL (70-99) Calcium Level 8.2 mg/dL (8.5-10.1) Phosphorus Level 4.4 mg/dL (2.6-4.7) Albumin 3.0 g/dL (3.4-5.0) Glucose (Fingerstick) 155 mg/dL (70-99) Laboratory Tests Test 12/23/20 11:38 12/23/20 11:50 12/23/20 11:58 12/23/20 13:13 D-Dimer (Greta) 0.58 ug/mlFEU (0.00-0.50) White Blood Count 8.2 x10^3/uL (4.0-11.0) Red Blood Count 4.05 x10^6/uL (3.50-5.40) Hemoglobin 11.8 g/dL (12.0-15.5) Hematocrit 35.8 % (36.0-47.0) Mean Corpuscular Volume 89 fL (79-100) Mean Corpuscular Hemoglobin 29 pg (25-35) Mean Corpuscular Hemoglobin Concent 33 g/dL (31-37) Red Cell Distribution Width 13.5 % (11.5-14.5) Platelet Count 243 x10^3/uL (140-400) Neutrophils (%) (Auto) 80 % (31-73) Lymphocytes (%) (Auto) 12 % (24-48) Monocytes (%) (Auto) 7 % (0-9) Eosinophils (%) (Auto) 1 % (0-3) Basophils (%) (Auto) 1 % (0-3) Neutrophils # (Auto) 6.5 x10^3/uL (1.8-7.7) Lymphocytes # (Auto) 1.0 x10^3/uL (1.0-4.8) Monocytes # (Auto) 0.5 x10^3/uL (0.0-1.1) Eosinophils # (Auto) 0.1 x10^3/uL (0.0-0.7) Basophils # (Auto) 0.1 x10^3/uL (0.0-0.2) Free Thyroxine 1.22 ng/dL (0.76-1.46) Sodium Level 141 mmol/L (136-145) Potassium Level 4.9 mmol/L (3.5-5.1) Chloride Level 105 mmol/L (98-107) Carbon Dioxide Level 23 mmol/L (21-32) Anion Gap 13 (6-14) Blood Urea Nitrogen 23 mg/dL (7-20) Creatinine 1.4 mg/dL (0.6-1.0) Estimated GFR (Cockcroft-Gault) 37.4 BUN/Creatinine Ratio 16 (6-20) Glucose Level 132 mg/dL (70-99) Calcium Level 8.4 mg/dL (8.5-10.1) Magnesium Level 2.1 mg/dL (1.8-2.4) Total Bilirubin 0.4 mg/dL (0.2-1.0) Aspartate Amino Transf (AST/SGOT) 28 U/L (15-37) Alanine Aminotransferase (ALT/SGPT) 37 U/L (14-59) Alkaline Phosphatase 89 U/L (46-116) Creatine Kinase 116 U/L (26-192) Creatine Kinase MB (Mass) 1.0 ng/mL (0.0-3.6) Creatine Kinase MB Relative Index 0.9 % (0-4) Troponin I Quantitative < 0.017 ng/mL (0.000-0.055) [place]-Ekq-Z-Type Natriuretic Peptide 917 pg/mL (0-124) Total Protein 7.5 g/dL (6.4-8.2) Albumin 3.3 g/dL (3.4-5.0) Albumin/Globulin Ratio 0.8 (1.0-1.7) Lipase 43 U/L (73-393) Urine Collection Type Unknown Urine Color Yellow Urine Clarity Clear Urine pH 6.0 (<5.0-8.0) Urine Specific [place] 1.010 (1.000-1.030) Urine Protein Negative mg/dL (NEG-TRACE) Urine Glucose (UA) Negative mg/dL (NEG) Urine Ketones (Stick) Negative mg/dL (NEG) Urine Blood Negative (NEG) Urine Nitrite Negative (NEG) Urine Bilirubin Negative (NEG) Urine Urobilinogen Dipstick 0.2 mg/dL (0.2 mg/dL) Urine Leukocyte Esterase Negative (NEG) Urine RBC 1-2 /HPF (0-2) Urine WBC 0 /HPF (0-4) Urine Squamous Epithelial Cells Few /LPF Urine Bacteria 0 /HPF (0-FEW) Urine Mucus Slight /LPF Test 12/24/20 05:00 12/24/20 09:28 White Blood Count 8.0 x10^3/uL (4.0-11.0) Red Blood Count 3.80 x10^6/uL (3.50-5.40) Hemoglobin 11.3 g/dL (12.0-15.5) Hematocrit 33.6 % (36.0-47.0) Mean Corpuscular Volume 88 fL (79-100) Mean Corpuscular Hemoglobin 30 pg (25-35) Mean Corpuscular Hemoglobin Concent 34 g/dL (31-37) Red Cell Distribution Width 13.8 % (11.5-14.5) Platelet Count 240 x10^3/uL (140-400) Neutrophils (%) (Auto) 67 % (31-73) Lymphocytes (%) (Auto) 21 % (24-48) Monocytes (%) (Auto) 10 % (0-9) Eosinophils (%) (Auto) 2 % (0-3) Basophils (%) (Auto) 1 % (0-3) Neutrophils # (Auto) 5.3 x10^3/uL (1.8-7.7) Lymphocytes # (Auto) 1.6 x10^3/uL (1.0-4.8) Monocytes # (Auto) 0.8 x10^3/uL (0.0-1.1) Eosinophils # (Auto) 0.2 x10^3/uL (0.0-0.7) Basophils # (Auto) 0.1 x10^3/uL (0.0-0.2) Sodium Level 144 mmol/L (136-145) Potassium Level 4.0 mmol/L (3.5-5.1) Chloride Level 104 mmol/L (98-107) Carbon Dioxide Level 30 mmol/L (21-32) Anion Gap 10 (6-14) Blood Urea Nitrogen 23 mg/dL (7-20) Creatinine 1.6 mg/dL (0.6-1.0) Estimated GFR (Cockcroft-Gault) 32.1 Glucose Level 102 mg/dL (70-99) Calcium Level 8.2 mg/dL (8.5-10.1) Phosphorus Level 4.4 mg/dL (2.6-4.7) Albumin 3.0 g/dL (3.4-5.0) Glucose (Fingerstick) 155 mg/dL (70-99) Medications Current Medications Furosemide (Lasix) 40 mg 1X ONCE IVP Last administered on 12/23/20at 13:49; Start 12/23/20 at 13:45; Stop 12/23/20 at 13:46; Status DC Apixaban (Eliquis) 5 mg BID PO Last administered on 12/24/20at 09:31; Start 12/23/20 at 21:00 Dronedarone (Multaq) 400 mg BID PO Last administered on 12/24/20at 09:30; Start 12/23/20 at 21:00 Gabapentin (Neurontin) 300 mg TID PO Last administered on 12/24/20 09:31; Start 12/23/20 at 21:00 Lisinopril (Prinivil) 10 mg HS PO Last administered on 12/23/20at 20:56; Start 12/23/20 at 21:00 Metoprolol Tartrate (Lopressor) 25 mg BID PO ; Start 12/23/20 at 21:00 Ondansetron HCl (Zofran Odt) 4 mg PRN TID PRN PO NAUSEA/VOMITING Last administered on 12/23/20 18:39; Start 12/23/20 at 17:45 Pantoprazole Sodium (Protonix) 40 mg BIDAC PO Last administered on 12/24/20 09:31; Start 12/23/20 at 21:00 Trimethoprim/ Sulfamethoxazole (Bactrim Ds) 1 tab BID PO Last administered on 12/24/20 09:31; Start 12/23/20 at 21:00 Tramadol HCl (Ultram) 50 mg PRN Q8HRS PRN PO PAIN; Start 12/23/20 at 17:45 Non-Formulary Medication (Amoxicillin ) 1 tab BID PO Last administered on 12/24/20 09:30; Start 12/23/20 at 21:00 Vitamin D (Vitamin D3) 5,000 unit DAILY PO Last administered on 12/24/20 09:31; Start 12/24/20 at 09:00 Fish Oil (Fish Oil) 1,000 mg DAILY PO Last administered on 12/24/20 09:31; Start 12/24/20 at 09:00 Multivitamins/ Minerals (I-Brian) 1 tab DAILY PO Last administered on 12/24/20 09:31; Start 12/24/20 at 09:00 Hydralazine HCl (Apresoline Inj) 10 mg PRN Q4HRS PRN IVP ELEVATED BP, SEE COMMENTS; Start 12/23/20 at 20:30 Insulin Human Lispro (HumaLOG) 0-5 UNITS TIDWMEALS SQ ; Start 12/24/20 at 08:00 Dextrose (Dextrose 50%-Water Syringe) 12.5 gm PRN Q15MIN PRN IV SEE COMMENTS; Start 12/23/20 at 20:45 Active Scripts Active Reported Amoxicillin 875 Mg Tablet 1 Tab PO BID 8 Days Bactrim Ds Tablet (Sulfamethoxazole/Trimethoprim) 1 Each Tablet 1 Tab PO BID 8 Days Ondansetron Odt (Ondansetron) 4 Mg Tab.rapdis 1 Tab PO PRN TID PRN Multaq (Dronedarone Hcl) 400 Mg Tablet 1 Tab PO BID Eliquis (Apixaban) 5 Mg Tablet 5 Mg PO BID Gabapentin (Gabapentin) 300 Mg Capsule 300 Mg PO TID Lisinopril 5 Mg Tablet 10 Mg PO HS Pantoprazole Sodium (Pantoprazole Sodium) 40 Mg Tablet. 40 Mg PO BID Metoprolol Tartrate 50 Mg Tablet 25 Mg PO DAILY Acetaminophen 500 Mg Tablet 500 Mg PO PRN Q4-6HRS PRN Tramadol Hcl 50 Mg Tablet 50 Mg PO PRN Q8HRS PRN [occuvite] 1 Tab PO DAILY Vitamin D3 (Cholecalciferol (Vitamin D3)) 5,000 Unit Tab.rapdis 5,000 Unit PO DAILY Fish Oil 1,200 mg Softgel ([place]-3/Dha/Epa/Fish Oil) 1 Each Capsule. 1 Each PO DAILY Vitals/I & O Vital Sign - Last 24 Hours 12/23/20 12/23/20 12/23/20 12/23/20 11:31 11:58 12:53 13:53 Temp 98.1 98.1 Pulse 61 54 50 52 Resp 20 B/P (MAP) 177/78 (111) 169/80 (109) 186/76 (112) 179/77 (111) Pulse Ox 97 95 95 95 O2 Delivery Room Air Room Air Room Air Room Air 12/23/20 12/23/20 12/23/20 12/23/20 16:30 16:36 19:00 20:15 Temp 99.4 98.4 99.4 98.4 Pulse 55 64 Resp 18 18 B/P (MAP) 137/61 (86) 123/63 (83) Pulse Ox 97 93 O2 Delivery Room Air Room Air Room Air Room Air 12/23/20 12/23/20 12/23/20 12/24/20 20:54 20:56 23:00 03:00 Temp 98.2 98.1 98.2 98.1 Pulse 64 64 47 48 Resp 17 16 B/P (MAP) 123/63 123/63 100/44 (62) 104/53 (70) Pulse Ox 97 100 O2 Delivery Room Air Room Air 12/24/20 12/24/20 12/24/20 12/24/20 07:00 07:52 09:00 09:30 Temp 98.3 98.3 Pulse 50 50 50 Resp 18 B/P (MAP) 121/62 (81) 121/62 121/62 Pulse Ox 95 O2 Delivery Room Air Room Air Intake and Output 12/23/20 12/23/20 12/24/20 15:00 23:00 07:00 Intake Total 600 ml Balance 600 ml Justicifation of Admission Dx: Justifications for Admission: Justification of Admission Dx: Yes CHF: Sev. Electrolyte Abnormal CAROL PRUITT MD Dec 24, 2020 11:14
--- NOTE | 2020-12-24 12:32 | PDOC2 ---
CONSULT Date of Consult Date of Consult DATE: 12/24/20 TIME: 12:26 Reason for Consult Reason for Consult: RENAL FAILURE Referring Physician Referring Physician: EDMOND Identification/Chief Complaint Chief Complaint SOB Source Source: Chart review, Patient History of Present Illness Reason for Visit: THIS IS A 70 YR OLD WITH SOB. SHE HAS ORTHOPNEA WELL. NL EF FROM ECHO ON . ALSO HAS HX OF AFIB. CARDIOVERTED ONCE BUT RETURNED TO AFIB AFTER COUPLE WEEKS. CR OF 1.6. HAS STAGE 3B CKD WITH CR OF ABOUT 1.5. SEES MY PARTNER DR PATEL IN THE OFFICE FOR THIS. CKD DUE TO DM II AND HTN. ELECTROLYTES AND ACID BASE BALANCE STABLE. HAS NOT BEEN TAKING DIURETICS AT HOME. NO OTHER HX Past Medical History Cardiovascular: AFIB, HTN Pulmonary: Other GI: GERD Psych: Anxiety Musculoskeletal: Osteoarthritis Infectious disease: No pertinent hx Renal/: Chronic renal insuff Endocrine: Diabetes Past Surgical History Past Surgical History: Hernia Repair Family History Family History: High Cholestrol, Hypertension Social History No ALCOHOL: none Drugs: None Lives: with Family Current Problem List Problem List Problems Medical Problems: (1) CHF (congestive heart failure) Status: Acute (2) Dyspnea Status: Acute Current Medications Current Medications Current Medications Furosemide (Lasix) 40 mg 1X ONCE IVP Last administered on 12/23/20at 13:49; Start 12/23/20 at 13:45; Stop 12/23/20 at 13:46; Status DC Apixaban (Eliquis) 5 mg BID PO Last administered on 12/24/20at 09:31; Start 12/23/20 at 21:00 Dronedarone (Multaq) 400 mg BID PO Last administered on 12/24/20at 09:30; Start 12/23/20 at 21:00 Gabapentin (Neurontin) 300 mg TID PO Last administered on 12/24/20at 09:31; Start 12/23/20 at 21:00 Lisinopril (Prinivil) 10 mg HS PO Last administered on 12/23/20at 20:56; Start 12/23/20 at 21:00 Metoprolol Tartrate (Lopressor) 25 mg BID PO ; Start 12/23/20 at 21:00 Ondansetron HCl (Zofran Odt) 4 mg PRN TID PRN PO NAUSEA/VOMITING Last administered on 12/23/20at 18:39; Start 12/23/20 at 17:45 Pantoprazole Sodium (Protonix) 40 mg BIDAC PO Last administered on 12/24/20 09:31; Start 12/23/20 at 21:00 Trimethoprim/ Sulfamethoxazole (Bactrim Ds) 1 tab BID PO Last administered on 12/24/20 09:31; Start 12/23/20 at 21:00 Tramadol HCl (Ultram) 50 mg PRN Q8HRS PRN PO PAIN; Start 12/23/20 at 17:45 Non-Formulary Medication (Amoxicillin ) 1 tab BID PO Last administered on 12/24/20 09:30; Start 12/23/20 at 21:00 Vitamin D (Vitamin D3) 5,000 unit DAILY PO Last administered on 12/24/20 09:31; Start 12/24/20 at 09:00 Fish Oil (Fish Oil) 1,000 mg DAILY PO Last administered on 12/24/20 09:31; Start 12/24/20 at 09:00 Multivitamins/ Minerals (I-Brian) 1 tab DAILY PO Last administered on 12/24/20 09:31; Start 12/24/20 at 09:00 Hydralazine HCl (Apresoline Inj) 10 mg PRN Q4HRS PRN IVP ELEVATED BP, SEE COMMENTS; Start 12/23/20 at 20:30 Insulin Human Lispro (HumaLOG) 0-5 UNITS TIDWMEALS SQ ; Start 12/24/20 at 08:00 Dextrose (Dextrose 50%-Water Syringe) 12.5 gm PRN Q15MIN PRN IV SEE COMMENTS; Start 12/23/20 at 20:45 Lactobacillus Rhamnosus (Culturelle) 1 cap BID PO ; Start 12/24/20 at 12:00 Active Scripts Active Reported Amoxicillin 875 Mg Tablet 1 Tab PO BID 8 Days Bactrim Ds Tablet (Sulfamethoxazole/Trimethoprim) 1 Each Tablet 1 Tab PO BID 8 Days Ondansetron Odt (Ondansetron) 4 Mg Tab.rapdis 1 Tab PO PRN TID PRN Multaq (Dronedarone Hcl) 400 Mg Tablet 1 Tab PO BID Eliquis (Apixaban) 5 Mg Tablet 5 Mg PO BID Gabapentin (Gabapentin) 300 Mg Capsule 300 Mg PO TID Lisinopril 5 Mg Tablet 10 Mg PO HS Pantoprazole Sodium (Pantoprazole Sodium) 40 Mg Tablet. 40 Mg PO BID Metoprolol Tartrate 50 Mg Tablet 25 Mg PO DAILY Acetaminophen 500 Mg Tablet 500 Mg PO PRN Q4-6HRS PRN Tramadol Hcl 50 Mg Tablet 50 Mg PO PRN Q8HRS PRN [occuvite] 1 Tab PO DAILY Vitamin D3 (Cholecalciferol (Vitamin D3)) 5,000 Unit Tab.rapdis 5,000 Unit PO DAILY Fish Oil 1,200 mg Softgel (Rumsey-3/Dha/Epa/Fish Oil) 1 Each Capsule. 1 Each PO DAILY Allergies Allergies: Coded Allergies: cephalexin (Verified Allergy, Severe, HIVES, 12/23/20) erythromycin base (Verified Allergy, Mild, "HURTS MY STOMACH REAL BAD", 11/02/19) ROS General: YES: Fatigue, Malaise PSYCHOLOGICAL ROS: YES: Anxiety Eyes: Yes Decreased vision HEENT: YES: Heacaches Respiratory: YES: Cough, Shortness of breath Gastrointestinal: Yes Constipation Genitourinary: YES Other (NOCTURIA) Musculoskeletal: Yes Muscular Weakness Neurological: Yes Weakness Skin: Yes Dry Skin Physical Exam General: Alert, Oriented X3, Cooperative, No acute distress HEENT: Atraumatic Lungs: Clear to auscultation Heart: Regular rate, Normal S1, Normal S2 Abdomen: Normal bowel sounds, No tenderness Extremities: No clubbing, No cyanosis Skin: No breakdown Neuro: Normal speech, Cranial nerves 3-12 NL Psych/Mental Status: Mood NL MUSCULOSKELETAL: No joint tenderness, No deformity, No swelling Vitals VITALS Vital Signs Date Time Temp Pulse Resp B/P (MAP) Pulse Ox O2 Delivery O2 Flow Rate FiO2 12/24/20 11:00 97.9 46 20 106/55 (72) 97 Room Air 97.9 Labs Labs Laboratory Tests Test 12/23/20 11:38 12/23/20 11:50 12/23/20 11:58 12/23/20 13:13 D-Dimer (Greta) 0.58 ug/mlFEU (0.00-0.50) White Blood Count 8.2 x10^3/uL (4.0-11.0) Red Blood Count 4.05 x10^6/uL (3.50-5.40) Hemoglobin 11.8 g/dL (12.0-15.5) Hematocrit 35.8 % (36.0-47.0) Mean Corpuscular Volume 89 fL (79-100) Mean Corpuscular Hemoglobin 29 pg (25-35) Mean Corpuscular Hemoglobin Concent 33 g/dL (31-37) Red Cell Distribution Width 13.5 % (11.5-14.5) Platelet Count 243 x10^3/uL (140-400) Neutrophils (%) (Auto) 80 % (31-73) Lymphocytes (%) (Auto) 12 % (24-48) Monocytes (%) (Auto) 7 % (0-9) Eosinophils (%) (Auto) 1 % (0-3) Basophils (%) (Auto) 1 % (0-3) Neutrophils # (Auto) 6.5 x10^3/uL (1.8-7.7) Lymphocytes # (Auto) 1.0 x10^3/uL (1.0-4.8) Monocytes # (Auto) 0.5 x10^3/uL (0.0-1.1) Eosinophils # (Auto) 0.1 x10^3/uL (0.0-0.7) Basophils # (Auto) 0.1 x10^3/uL (0.0-0.2) Free Thyroxine 1.22 ng/dL (0.76-1.46) Sodium Level 141 mmol/L (136-145) Potassium Level 4.9 mmol/L (3.5-5.1) Chloride Level 105 mmol/L (98-107) Carbon Dioxide Level 23 mmol/L (21-32) Anion Gap 13 (6-14) Blood Urea Nitrogen 23 mg/dL (7-20) Creatinine 1.4 mg/dL (0.6-1.0) Estimated GFR (Cockcroft-Gault) 37.4 BUN/Creatinine Ratio 16 (6-20) Glucose Level 132 mg/dL (70-99) Calcium Level 8.4 mg/dL (8.5-10.1) Magnesium Level 2.1 mg/dL (1.8-2.4) Total Bilirubin 0.4 mg/dL (0.2-1.0) Aspartate Amino Transf (AST/SGOT) 28 U/L (15-37) Alanine Aminotransferase (ALT/SGPT) 37 U/L (14-59) Alkaline Phosphatase 89 U/L (46-116) Creatine Kinase 116 U/L (26-192) Creatine Kinase MB (Mass) 1.0 ng/mL (0.0-3.6) Creatine Kinase MB Relative Index 0.9 % (0-4) Troponin I Quantitative < 0.017 ng/mL (0.000-0.055) XI-Ytm-I-Type Natriuretic Peptide 917 pg/mL (0-124) Total Protein 7.5 g/dL (6.4-8.2) Albumin 3.3 g/dL (3.4-5.0) Albumin/Globulin Ratio 0.8 (1.0-1.7) Lipase 43 U/L (73-393) Urine Collection Type Unknown Urine Color Yellow Urine Clarity Clear Urine pH 6.0 (<5.0-8.0) Urine Specific Hewlett 1.010 (1.000-1.030) Urine Protein Negative mg/dL (NEG-TRACE) Urine Glucose (UA) Negative mg/dL (NEG) Urine Ketones (Stick) Negative mg/dL (NEG) Urine Blood Negative (NEG) Urine Nitrite Negative (NEG) Urine Bilirubin Negative (NEG) Urine Urobilinogen Dipstick 0.2 mg/dL (0.2 mg/dL) Urine Leukocyte Esterase Negative (NEG) Urine RBC 1-2 /HPF (0-2) Urine WBC 0 /HPF (0-4) Urine Squamous Epithelial Cells Few /LPF Urine Bacteria 0 /HPF (0-FEW) Urine Mucus Slight /LPF Test 12/24/20 05:00 12/24/20 09:28 White Blood Count 8.0 x10^3/uL (4.0-11.0) Red Blood Count 3.80 x10^6/uL (3.50-5.40) Hemoglobin 11.3 g/dL (12.0-15.5) Hematocrit 33.6 % (36.0-47.0) Mean Corpuscular Volume 88 fL (79-100) Mean Corpuscular Hemoglobin 30 pg (25-35) Mean Corpuscular Hemoglobin Concent 34 g/dL (31-37) Red Cell Distribution Width 13.8 % (11.5-14.5) Platelet Count 240 x10^3/uL (140-400) Neutrophils (%) (Auto) 67 % (31-73) Lymphocytes (%) (Auto) 21 % (24-48) Monocytes (%) (Auto) 10 % (0-9) Eosinophils (%) (Auto) 2 % (0-3) Basophils (%) (Auto) 1 % (0-3) Neutrophils # (Auto) 5.3 x10^3/uL (1.8-7.7) Lymphocytes # (Auto) 1.6 x10^3/uL (1.0-4.8) Monocytes # (Auto) 0.8 x10^3/uL (0.0-1.1) Eosinophils # (Auto) 0.2 x10^3/uL (0.0-0.7) Basophils # (Auto) 0.1 x10^3/uL (0.0-0.2) Sodium Level 144 mmol/L (136-145) Potassium Level 4.0 mmol/L (3.5-5.1) Chloride Level 104 mmol/L (98-107) Carbon Dioxide Level 30 mmol/L (21-32) Anion Gap 10 (6-14) Blood Urea Nitrogen 23 mg/dL (7-20) Creatinine 1.6 mg/dL (0.6-1.0) Estimated GFR (Cockcroft-Gault) 32.1 Glucose Level 102 mg/dL (70-99) Calcium Level 8.2 mg/dL (8.5-10.1) Phosphorus Level 4.4 mg/dL (2.6-4.7) Albumin 3.0 g/dL (3.4-5.0) Glucose (Fingerstick) 155 mg/dL (70-99) Laboratory Tests Test 12/23/20 13:13 12/24/20 05:00 12/24/20 09:28 Urine Collection Type Unknown Urine Color Yellow Urine Clarity Clear Urine pH 6.0 (<5.0-8.0) Urine Specific Hewlett 1.010 (1.000-1.030) Urine Protein Negative mg/dL (NEG-TRACE) Urine Glucose (UA) Negative mg/dL (NEG) Urine Ketones (Stick) Negative mg/dL (NEG) Urine Blood Negative (NEG) Urine Nitrite Negative (NEG) Urine Bilirubin Negative (NEG) Urine Urobilinogen Dipstick 0.2 mg/dL (0.2 mg/dL) Urine Leukocyte Esterase Negative (NEG) Urine RBC 1-2 /HPF (0-2) Urine WBC 0 /HPF (0-4) Urine Squamous Epithelial Cells Few /LPF Urine Bacteria 0 /HPF (0-FEW) Urine Mucus Slight /LPF White Blood Count 8.0 x10^3/uL (4.0-11.0) Red Blood Count 3.80 x10^6/uL (3.50-5.40) Hemoglobin 11.3 g/dL (12.0-15.5) Hematocrit 33.6 % (36.0-47.0) Mean Corpuscular Volume 88 fL (79-100) Mean Corpuscular Hemoglobin 30 pg (25-35) Mean Corpuscular Hemoglobin Concent 34 g/dL (31-37) Red Cell Distribution Width 13.8 % (11.5-14.5) Platelet Count 240 x10^3/uL (140-400) Neutrophils (%) (Auto) 67 % (31-73) Lymphocytes (%) (Auto) 21 % (24-48) Monocytes (%) (Auto) 10 % (0-9) Eosinophils (%) (Auto) 2 % (0-3) Basophils (%) (Auto) 1 % (0-3) Neutrophils # (Auto) 5.3 x10^3/uL (1.8-7.7) Lymphocytes # (Auto) 1.6 x10^3/uL (1.0-4.8) Monocytes # (Auto) 0.8 x10^3/uL (0.0-1.1) Eosinophils # (Auto) 0.2 x10^3/uL (0.0-0.7) Basophils # (Auto) 0.1 x10^3/uL (0.0-0.2) Sodium Level 144 mmol/L (136-145) Potassium Level 4.0 mmol/L (3.5-5.1) Chloride Level 104 mmol/L (98-107) Carbon Dioxide Level 30 mmol/L (21-32) Anion Gap 10 (6-14) Blood Urea Nitrogen 23 mg/dL (7-20) Creatinine 1.6 mg/dL (0.6-1.0) Estimated GFR (Cockcroft-Gault) 32.1 Glucose Level 102 mg/dL (70-99) Calcium Level 8.2 mg/dL (8.5-10.1) Phosphorus Level 4.4 mg/dL (2.6-4.7) Albumin 3.0 g/dL (3.4-5.0) Glucose (Fingerstick) 155 mg/dL (70-99) Assessment/Plan Assessment/Plan IMP CKD STAGE 3B-STABLE - CR STABLE AT 1.6 CHF-PROB DIASTOLIC OBESITY DM II AFIB PLAN START PO LASIX CONT WITH FAREED-I CARDIOLOGY EVAL AND TX WILL FOLLOW CARLOYN GLYNN MD Dec 24, 2020 12:32
[2020-12-24] MEDS: LACTOBACILLUS RHAMNOSUS GG 1 CAPSULE. PO SCH ×2 (13:03→21:00)
[2020-12-24] MEDS: ANTI-COAG MONITOR BY PHARMACY. MC PRN (13:51)
[2020-12-24 15:00] VITALS: BP 98/42
--- NOTE | 2020-12-24 15:51 | PDOC2 ---
CARDIOLOGY CONSULT NOTE DATE OF SERVICE: DATE: 12/24/20 TIME: 15:46 CHIEF COMPLAINT: SOA HPI: Coretta is a very pleasant 70-year-old woman who is well-known to my service who comes into the hospital for further evaluation of shortness of air. She actually called the office prior to presenting to the ER and was actually being seen by her primary care physician for shortness of air. She was felt to have excess volume and was referred to the ER. Since admission to the ER she was given Lasix and feels much better. She recently underwent extensive testing including a myocardial perfusion study which was unremarkable. She denies any exertional angina but does have some chronic dyspnea related to her obesity and sleep apnea issues. She reports fatigue and has not been able to sleep well at night. She does not have any syncope or lower extremity edema. She does have occasional palpitations consistent with her paroxysmal atrial fibrillation. She reports compliance with her medications overall and her home blood pressures have been stable around 110-140 systolic. PMHX: 1. Chronic diastolic heart failure 2. Hypertension 3. Obstructive sleep apnea currently untreated 4. Paroxysmal atrial fibrillation currently sinus rhythm with cardioversion in April 2020 5. Chronic kidney disease 6. Dyslipidemia 7. History of splenic artery aneurysm SOCHX: She lives at home with her . Denies any alcohol, tobacco or illicit drug use. FAMHX: Noncontributory CURRENT MEDS: Current Medications Medications (Trade) Dose Ordered Sig/Abdoulaye Route PRN Reason Start Time Stop Time Status Last Admin Dose Admin Apixaban (Eliquis) 5 mg BID PO 12/23/20 21:00 12/24/20 09:31 Dronedarone (Multaq) 400 mg BID PO 12/23/20 21:00 12/24/20 09:30 Gabapentin (Neurontin) 300 mg TID PO 12/23/20 21:00 12/24/20 13:03 Lisinopril (Prinivil) 10 mg HS PO 12/23/20 21:00 12/23/20 20:56 Ondansetron HCl (Zofran Odt) 4 mg PRN TID PRN PO NAUSEA/VOMITING 12/23/20 17:45 12/23/20 18:39 Pantoprazole Sodium (Protonix) 40 mg BIDAC PO 12/23/20 21:00 12/24/20 09:31 Trimethoprim/ Sulfamethoxazole (Bactrim Ds) 1 tab BID PO 12/23/20 21:00 12/24/20 09:31 Non-Formulary Medication (Amoxicillin ) 1 tab BID PO 12/23/20 21:00 12/24/20 09:30 Vitamin D (Vitamin D3) 5,000 unit DAILY PO 12/24/20 09:00 12/24/20 09:31 Fish Oil (Fish Oil) 1,000 mg DAILY PO 12/24/20 09:00 12/24/20 09:31 Multivitamins/ Minerals (I-Brian) 1 tab DAILY PO 12/24/20 09:00 12/24/20 09:31 Lactobacillus Rhamnosus (Culturelle) 1 cap BID PO 12/24/20 12:00 12/24/20 13:03 Info (Anti-Coagulation Monitoring By Pharmacy) 1 each PRN DAILY PRN MC SEE COMMENTS 12/24/20 13:45 12/24/20 13:51 ALLERGIES: Allergies Coded Allergies Type Severity Reaction Last Updated Verified cephalexin Allergy Severe HIVES 12/23/20 Yes erythromycin base Allergy Mild "HURTS MY STOMACH REAL BAD" 11/02/19 Yes ROS: Negative for 10 out of 14 systems reviewed unless otherwise mentioned above in HPI PHYSICAL EXAM: Vital Signs/I&O: Vital Signs Date Time Temp Pulse Resp B/P (MAP) Pulse Ox O2 Delivery O2 Flow Rate FiO2 12/24/20 11:00 97.9 46 20 106/55 (72) 97 Room Air 97.9 I & O 12/23/20 12/23/20 12/24/20 15:00 23:00 07:00 Intake Total 600 ml Balance 600 ml Physical Exam: The patient appeared well nourished and normally developed. Head exam is unremarkable. No scleral icterus or corneal arcus noted. Neck is without jugular venous distension, thyromegaly, or carotid bruits. Carotid upstrokes are brisk bilaterally. Lungs are clear to auscultation and percussion. Cardiac exam reveals the PMI to be normally sized and situated. Rhythm is regular. First and second heart sounds normal. No murmurs, rubs or gallops. Abdominal exam reveals normal bowel sounds, no masses, no organomegaly and no aortic enlargement. Extremities are nonedematous and both femoral and pedal pulses are normal. Msk: No traumua Neuro: No focal deficits DIAGNOSTIC TESTING: EKG reveals sinus rhythm Cardiac enzymes are unremarkable, BNP mildly elevated 917. Chest x-ray is unremarkable MPI in August 2020 was unremarkable Transesophageal echocardiogram in 2019 did not reveal any significant valvular pathology and ejection fraction was preserved. ASSESSMENT: 1. Acute on chronic diastolic heart failure currently much improved 2. Chronic obstructive sleep apnea not treated 3. Hypertension 4. Dyslipidemia 5. Morbid obesity 6. Chronic kidney disease with currently a creatinine of 1.6 which is her baseline PLAN: 1. Agree with initiation of daily diuretic therapy. She is currently in sinus rhythm. Continue her medical therapy including anticoagulation and beta- jocy. 2. Obtain a 6-minute curry walk and referral to pulmonary on outpatient basis for consideration of sleep apnea treatment No further cardiovascular testing necessary at this time. Monitor further 24 hours and if she is doing better we will plan for discharge GLENDA LERNER MD Dec 24, 2020 15:51
[2020-12-24 19:36] VITALS: BP 95/46
[2020-12-24] MEDS: LISINOPRIL 10 MG TABLET PO SCH (21:00)
[2020-12-24 23:09] VITALS: BP 83/31
[2020-12-25 03:44] VITALS: BP 112/56
[2020-12-25 04:37] LABS: CREATININE 2.3 mg/dL (0.6-1.0); GFR 21.1; PHOSPHORUS 4.5 mg/dL (2.6-4.7)
[2020-12-25 07:00] VITALS: BP 105/50
[2020-12-25 07:18] LABS: HEMOGLOBIN A1C 5.9 % (4.8-5.6)
[2020-12-25] MEDS: INSULIN LISPRO 300 UNITS/3 ML VIAL. SQ SCH ×3 (08:00→17:00)
[2020-12-25] MEDS: METOPROLOL TART IMMED RELEASE 50 MG TABLET. PO SCH ×2 (09:00→21:00)
--- NOTE | 2020-12-25 09:08 | CONS ---
DATE OF CONSULTATION: 12/25/2020 REASON FOR CONSULTATION: I was asked to see this 70-year-old lady for obstructive sleep apnea hypopnea syndrome, hypoxia. HISTORY OF PRESENT ILLNESS: She is a lifelong nonsmoker. She presented to the emergency room with increased shortness of breath. For the past week, she has had a cough with no sputum production. She denies fever or chills. She had sleep study 2 years ago and was told she had sleep apnea, but she never got her CPAP machine. She denies chest pain. She has gained about 20 pounds over the past few years. PAST MEDICAL HISTORY: Paroxysmal atrial fibrillation, coronary artery disease, hypertension, obstructive sleep apnea/hypopnea syndrome. ALLERGIES: CEPHALEXIN, ERYTHROMYCIN. MEDICATIONS: Currently, she is on multivitamin, fish oil, vitamin D, insulin, amoxicillin, Bactrim, Protonix, Lopressor, Prinivil, Neurontin, Eliquis. SOCIAL HISTORY: She is a lifelong nonsmoker. FAMILY HISTORY: Hypertension. REVIEW OF SYSTEMS: As mentioned as above. She has had some lower extremity edema. Other systems otherwise negative. PHYSICAL EXAMINATION: GENERAL: This is an obese lady. VITAL SIGNS: Her O2 saturation on 3 liters of oxygen is 97%, heart rate 61, blood pressure 105/50, temperature 97.8, respiratory rate 18. HEENT: Normocephalic, atraumatic. Pupils equal, round, reactive to light. Throat is clear. There is shallow oropharynx. Nose is clear. NECK: There is no lymphadenopathy or thyromegaly. CARDIOVASCULAR: Regular rate and rhythm. PMI is not displaced. Chest inspection is normal. LUNGS: There are bibasilar crackles. There is no wheezing. ABDOMEN: Soft and obese. Bowel sounds are good. There is no mass. EXTREMITIES: There is no edema. LYMPHATICS: There is no lymphadenopathy. NEUROLOGIC: Alert and oriented. SKIN: Chronic changes. LABORATORY DATA: I reviewed the following data: WBC 8, hemoglobin 11.3, platelets 240. Sodium 141, potassium 4, chloride 106, CO2 of 26, BUN 33, creatinine 2.3. BNP 917. Troponin less than 0.017. IMPRESSION: 1. Acute respiratory failure secondary to acute diastolic congestive heart failure, untreated obstructive sleep apnea/hypopnea syndrome. 2. Acute diastolic congestive heart failure. 3. Hypertension. 4. Obstructive sleep apnea/hypopnea syndrome. 5. Paroxysmal atrial fibrillation. 6. Chronic kidney disease. 7. Hyperlipidemia. 8. History of splenic artery aneurysm. PLAN AND RECOMMENDATIONS: 1. Transferred FIO2 to keep O2 saturation 90%. 2. Treatment of CHF per cardiology. 3. Lose weight and exercise. 4. Her creatinine is elevated. Nephrology is on the case. 5. I have discussed obstructive sleep apnea/hypopnea syndrome, the importance of treatment, if untreated increased cardiovascular and ADMINISTRATIVE REPRESENTATIVE morbidity and mortality. Unfortunately, a sleep study was done 2 years ago. We need to restart. She will need a sleep study as an outpatient and follow up with Dr. Palafox in his office. 6. She is on Eliquis for paroxysmal atrial fibrillation. 7. The findings and recommendations were discussed with the patient and her . They understood and agreed to proceed with the plan. I have answered all of their questions. I ask RN to give her Dr. Palafox's office telephone number. HAL SILVESTRE: Manju TID: [id number]
[2020-12-25] MEDS: MULTIVITAMIN I-VITE TABLET. PO SCH (09:14)
[2020-12-25] MEDS: SMZ/TMP 800/160MG TABLET. PO SCH (09:14)
[2020-12-25] MEDS: LACTOBACILLUS RHAMNOSUS GG 1 CAPSULE. PO SCH ×2 (09:14→20:47)
[2020-12-25] MEDS: CHOLECALCIFEROL (VITAMIN D3) 5,000 UNIT CAPSULE PO SCH (09:15)
[2020-12-25] MEDS: DRONEDARONE HCL 400 MG TABLET PO SCH ×2 (09:16→20:48)
[2020-12-25] MEDS: GABAPENTIN 300 MG CAPSULE. PO SCH ×3 (09:16→20:48)
[2020-12-25] MEDS: OMEGA-3 FATTY ACIDS/FISH OIL 1,000 MG CAPSULE. PO SCH (09:16)
[2020-12-25] MEDS: AMOXICILLIN 875 MG PO SCH (09:16)
[2020-12-25] MEDS: PANTOPRAZOLE 40 MG TABLET.DR. PO SCH ×2 (09:16→17:57)
[2020-12-25] MEDS: APIXABAN 5 MG TABLET. PO SCH ×2 (09:16→20:48)
--- NOTE | 2020-12-25 10:18 | PDOC ---
PROGRESS NOTES Date of Service: DATE: 12/25/20 TIME: 10:18 Chief Complaint Chief Complaint Assessment/Plan Assessment/Plan IMPRESSION Acute dyspnea acute hypoxic resp failure HX A FIB ON ELIQUIS Acute diastolic CHF moderate tricuspid regurgitation with an estimated PAP of 36 mmHg. severe morbid obesity LIKELY CHRISTINA Successful CVN to SR with 360 Joules 04-05-2020 calcified granuloma within the left lower lobe Small partially calcified splenic artery aneurysm. ckd stage 3 b cr up to 1.6 CKD DUE TO DM II AND HTN. diabetes recent left groin abscess ANXIETY HYPERLIPIDEMIA BRADYCARDIA NORMOCYTIC ANEMIA PLAN IV LASIX X 1 IN ER tele Cardiology consult home meds ADMIT ACCUCHECKS SS INSULIN A1C AVOID Nephrotoxic meds nephrology consult IV HYDRALAZINE 10 MG Q 4 HRS PRN BP SUPPORT 6 MIN WALK v/q scan 12-25 renal fx worse, stop lisinopril, bactrim, iv hydrate D/W DR GLYNN D/W RN Justifications for Admission Other Justification History of Present Illness History of Present Illness Identification/Chief Complaint Chief Complaint DYSPNEA, SNORES AT NIGHT, POSSIBLE CHRISTINA, ACUTE CHF, orthopnea History of Present Illness History of Present Illness Seen in ER today with new onset dyspnea, has suspected CHRISTINA, known severe obesi ty, diabetes PRO bnp in ER = 950 CR 1.4 recent left groin abscess on amoxil and bactrim 70 YR OLD FEMALE WITH HX gerd, dry cough, cad, a-fib on eliquis, seen with orthopnea, new onset calcified granuloma within the left lower lobe KNOWN Small partially calcified splenic artery aneurysm. , BP POORLY CONTROLLED IN ER ckd stage 3 b Past Medical History Past Medical History Past Medical History: A-Fib, Anxiety, CAD, GERD, High Cholesterol, Hypertension, IBS, Renal Disease Past Surgical History: Cholecystectomy, Smoking Status: Never Smoker Alcohol Use: None fhx obesity Cardiovascular: AFIB, HTN Pulmonary: Other GI: GERD Psych: Anxiety Musculoskeletal: Osteoarthritis Infectious disease: No pertinent hx Renal/: Chronic renal insuff Endocrine: Diabetes Past Surgical History Past Surgical History: Hernia Repair Family History Family History: High Cholestrol, Hypertension Social History Smoke: No ALCOHOL: none Drugs: None Current Medications Current Medications Active Scripts Active Reported Amiodarone Hcl 200 Mg Tablet 200 Mg PO DAILY Eliquis (Apixaban) 5 Mg Tablet 5 Mg PO BID [spectravite women's] 2 Tab.chew PO DAILY Gabapentin (Gabapentin) 300 Mg Capsule 300 Mg PO TID Lisinopril 5 Mg Tablet 20 Mg PO DAILY Pantoprazole Sodium (Pantoprazole Sodium) 40 Mg Tablet.dr 40 Mg PO BID Metoprolol Tartrate 50 Mg Tablet 50 Mg PO BID Acetaminophen 500 Mg Tablet 500 Mg PO PRN Q4-6HRS PRN Tramadol Hcl 50 Mg Tablet 50 Mg PO PRN Q8HRS PRN [occuvite] 1 Tab PO DAILY Vitamin B12 (Cyanocobalamin (Vitamin B-12)) 5,000 Mcg Tab.rapdis 1,000 Mcg PO DAILY Vitamin D3 (Cholecalciferol (Vitamin D3)) 5,000 Unit Tab.rapdis 5,000 Unit PO DAILY Fish Oil 1,200 mg Softgel (Charlotte-3/Dha/Epa/Fish Oil) 1 Each Capsule.dr 1 Each PO DAILY Allergies Allergies: Coded Allergies: cephalexin (Verified Allergy, Severe, HIVES, 12/23/20) erythromycin base (Verified Allergy, Mild, "HURTS MY STOMACH REAL BAD", 11/02/19) ROS Review of System new onset orthopnea General: YES: Fatigue PSYCHOLOGICAL ROS: No: Anxiety, Behavioral Disorder, Concentration difficultie, Decreased libido, Depression, Disorientation, Hallucinations, Hostility, Irritablity, Memory difficulties, Mood Swings, Obsessive thoughts, Physical abuse, Sexual abuse, Sleep disturbances, Suicidal ideation, Other Eyes: No Blurry vision, No Decreased vision, No Double vision, No Dry eyes, No Excessive tearing, No Eye Pain, No Itchy Eyes, No Loss of vision, No Photop hobia, No Scotomata, No Uses contacts, No Uses glasses, No Other HEENT: No: Heacaches, Visual Changes, Hearing change, Nasal congestion, Nasal discharge, Oral lesions, Sinus pain, Sore Throat, Epistaxis, Sneezing, Snoring, Tinnitus, Vertigo, Vocal changes, Other ALLERGY AND IMMUNOLOGY: No: Hives, Insect Bite Sensitivity, Itchy/Watery Eyes, Nasal Congestion, Post Nasal Drip, Seasonal Allergies, Other ENDOCRINE: No: Breast Changes, Galactorrhea, Hair Pattern Changes, Hot Flashes, Malaise/lethargy, Mood Swings, Palpitations, Polydipsia/polyuria, Skin Changes, Temperature Intolerance, Unexpected Weight Changes, Other Respiratory: YES: Cough, Orthopnea, Shortness of breath, SOB with excertion; No: Hemoptysis, Pleuritic Pain, Sputum Changes, Stridor, Tachypnea, Wheezing, Other Cardiovascular: yes Orthopnea; No Chest Pain, No Palpitations, No Paroxysmal Noc. Dyspnea, No Edema, No Lt Headedness, No Other Gastrointestinal: No Nausea, No Vomiting, No Abdominal Pain, No Diarrhea, No Constipation, No Melena, No Hematochezia, No Other Genitourinary: No Dysuria, No Frequency, No Incontinence, No Hematuria, No Retention, No Discharge, No Urgency, No Pain, No Flank Pain, No Other, No , No , No , No , No , No , No Musculoskeletal: No Gait Disturbance, No Joint Pain, No Joint Stiffness, No Joint Swelling, No Muscle Pain, No Muscular Weakness, No Pain In:, No Swelling In:, No Other Neurological: No Behavorial Changes, No Bowel/Bladder ControlChng, No Confusion, No Dizziness, No Gait Disturbance, No Headaches, No Impaired Coord/balance, No Memory Loss, No Numbness/Tingling, No Seizures, No Speech Problems, No Tremors, No Visual Changes, No Weakness, No Other Skin: Yes Skin Lesion Changes; No Dry Skin, No Eczema, No Hair Changes, No Lumps, No Mole Changes, No Mottling, No Nail Changes, No Pruritus, No Rash, No Other, No Acne 4-24 ckd stage 3 b cr up to 1.6 diabetes recent left groin abscess ANXIETY HYPERLIPIDEMIA d/w RN Vitals Vitals Vital Signs Date Time Temp Pulse Resp B/P (MAP) Pulse Ox O2 Delivery O2 Flow Rate FiO2 12/25/20 09:16 61 105/50 12/25/20 07:00 97.8 19 94 Nasal Cannula 3.0 97.8 Physical Exam General: Alert, Oriented X3, Cooperative, No acute distress Heart: Regular rate, Normal S1, Normal S2 Abdomen: Normal bowel sounds, No tenderness Extremities: No clubbing, No cyanosis Skin: No breakdown Labs LABS EXAM: Chest, single view. HISTORY: Chest pain. COMPARISON: 01/28/2020 FINDINGS: A frontal view of the chest is obtained. There is no infiltrate, pleural effusion or pneumothorax. There is a prominent cardiac silhouette. There is a calcified granuloma within the left lower lobe. IMPRESSION: No acute pulmonary finding. Prominent cardiac silhouette. Electronically signed by: Trinidad Whelan MD (12/23/2020 11:56 AM) [id number] DICTATED and SIGNED BY: TRINIDAD WHELAN MD DATE: 12/23/20 [id number] Laboratory Tests Test 12/24/20 11:37 12/24/20 16:28 12/24/20 20:15 12/25/20 03:40 Glucose (Fingerstick) 97 mg/dL (70-99) 116 mg/dL (70-99) 91 mg/dL (70-99) Sodium Level 141 mmol/L (136-145) Potassium Level 4.0 mmol/L (3.5-5.1) Chloride Level 104 mmol/L (98-107) Carbon Dioxide Level 26 mmol/L (21-32) Anion Gap 11 (6-14) Blood Urea Nitrogen 33 mg/dL (7-20) Creatinine 2.3 mg/dL (0.6-1.0) Estimated GFR (Cockcroft-Gault) 21.1 Glucose Level 109 mg/dL (70-99) Calcium Level 8.0 mg/dL (8.5-10.1) Phosphorus Level 4.5 mg/dL (2.6-4.7) Albumin 3.0 g/dL (3.4-5.0) Test 12/25/20 07:31 Glucose (Fingerstick) 115 mg/dL (70-99) Assessment and Plan Assessmemt and Plan Problems Medical Problems: (1) CHF (congestive heart failure) Status: Acute (2) Dyspnea Status: Acute Comment Review of Relevant I have reviewed the following items joshua (where applicable) has been applied. Labs Laboratory Tests Test 12/23/20 11:38 12/23/20 11:50 12/23/20 11:58 12/23/20 13:13 D-Dimer (Greta) 0.58 ug/mlFEU (0.00-0.50) White Blood Count 8.2 x10^3/uL (4.0-11.0) Red Blood Count 4.05 x10^6/uL (3.50-5.40) Hemoglobin 11.8 g/dL (12.0-15.5) Hematocrit 35.8 % (36.0-47.0) Mean Corpuscular Volume 89 fL (79-100) Mean Corpuscular Hemoglobin 29 pg (25-35) Mean Corpuscular Hemoglobin Concent 33 g/dL (31-37) Red Cell Distribution Width 13.5 % (11.5-14.5) Platelet Count 243 x10^3/uL (140-400) Neutrophils (%) (Auto) 80 % (31-73) Lymphocytes (%) (Auto) 12 % (24-48) Monocytes (%) (Auto) 7 % (0-9) Eosinophils (%) (Auto) 1 % (0-3) Basophils (%) (Auto) 1 % (0-3) Neutrophils # (Auto) 6.5 x10^3/uL (1.8-7.7) Lymphocytes # (Auto) 1.0 x10^3/uL (1.0-4.8) Monocytes # (Auto) 0.5 x10^3/uL (0.0-1.1) Eosinophils # (Auto) 0.1 x10^3/uL (0.0-0.7) Basophils # (Auto) 0.1 x10^3/uL (0.0-0.2) Hemoglobin A1c 5.9 % (4.8-5.6) Free Thyroxine 1.22 ng/dL (0.76-1.46) Sodium Level 141 mmol/L (136-145) Potassium Level 4.9 mmol/L (3.5-5.1) Chloride Level 105 mmol/L (98-107) Carbon Dioxide Level 23 mmol/L (21-32) Anion Gap 13 (6-14) Blood Urea Nitrogen 23 mg/dL (7-20) Creatinine 1.4 mg/dL (0.6-1.0) Estimated GFR (Cockcroft-Gault) 37.4 BUN/Creatinine Ratio 16 (6-20) Glucose Level 132 mg/dL (70-99) Calcium Level 8.4 mg/dL (8.5-10.1) Magnesium Level 2.1 mg/dL (1.8-2.4) Total Bilirubin 0.4 mg/dL (0.2-1.0) Aspartate Amino Transf (AST/SGOT) 28 U/L (15-37) Alanine Aminotransferase (ALT/SGPT) 37 U/L (14-59) Alkaline Phosphatase 89 U/L (46-116) Creatine Kinase 116 U/L (26-192) Creatine Kinase MB (Mass) 1.0 ng/mL (0.0-3.6) Creatine Kinase MB Relative Index 0.9 % (0-4) Troponin I Quantitative < 0.017 ng/mL (0.000-0.055) XC-Ixs-B-Type Natriuretic Peptide 917 pg/mL (0-124) Total Protein 7.5 g/dL (6.4-8.2) Albumin 3.3 g/dL (3.4-5.0) Albumin/Globulin Ratio 0.8 (1.0-1.7) Lipase 43 U/L (73-393) Urine Collection Type Unknown Urine Color Yellow Urine Clarity Clear Urine pH 6.0 (<5.0-8.0) Urine Specific Thompson 1.010 (1.000-1.030) Urine Protein Negative mg/dL (NEG-TRACE) Urine Glucose (UA) Negative mg/dL (NEG) Urine Ketones (Stick) Negative mg/dL (NEG) Urine Blood Negative (NEG) Urine Nitrite Negative (NEG) Urine Bilirubin Negative (NEG) Urine Urobilinogen Dipstick 0.2 mg/dL (0.2 mg/dL) Urine Leukocyte Esterase Negative (NEG) Urine RBC 1-2 /HPF (0-2) Urine WBC 0 /HPF (0-4) Urine Squamous Epithelial Cells Few /LPF Urine Bacteria 0 /HPF (0-FEW) Urine Mucus Slight /LPF Test 12/24/20 05:00 12/24/20 09:28 12/24/20 11:37 12/24/20 16:28 White Blood Count 8.0 x10^3/uL (4.0-11.0) Red Blood Count 3.80 x10^6/uL (3.50-5.40) Hemoglobin 11.3 g/dL (12.0-15.5) Hematocrit 33.6 % (36.0-47.0) Mean Corpuscular Volume 88 fL (79-100) Mean Corpuscular Hemoglobin 30 pg (25-35) Mean Corpuscular Hemoglobin Concent 34 g/dL (31-37) Red Cell Distribution Width 13.8 % (11.5-14.5) Platelet Count 240 x10^3/uL (140-400) Neutrophils (%) (Auto) 67 % (31-73) Lymphocytes (%) (Auto) 21 % (24-48) Monocytes (%) (Auto) 10 % (0-9) Eosinophils (%) (Auto) 2 % (0-3) Basophils (%) (Auto) 1 % (0-3) Neutrophils # (Auto) 5.3 x10^3/uL (1.8-7.7) Lymphocytes # (Auto) 1.6 x10^3/uL (1.0-4.8) Monocytes # (Auto) 0.8 x10^3/uL (0.0-1.1) Eosinophils # (Auto) 0.2 x10^3/uL (0.0-0.7) Basophils # (Auto) 0.1 x10^3/uL (0.0-0.2) Sodium Level 144 mmol/L (136-145) Potassium Level 4.0 mmol/L (3.5-5.1) Chloride Level 104 mmol/L (98-107) Carbon Dioxide Level 30 mmol/L (21-32) Anion Gap 10 (6-14) Blood Urea Nitrogen 23 mg/dL (7-20) Creatinine 1.6 mg/dL (0.6-1.0) Estimated GFR (Cockcroft-Gault) 32.1 Glucose Level 102 mg/dL (70-99) Calcium Level 8.2 mg/dL (8.5-10.1) Phosphorus Level 4.4 mg/dL (2.6-4.7) Albumin 3.0 g/dL (3.4-5.0) Glucose (Fingerstick) 155 mg/dL (70-99) 97 mg/dL (70-99) 116 mg/dL (70-99) Test 12/24/20 20:15 12/25/20 03:40 12/25/20 07:31 Glucose (Fingerstick) 91 mg/dL (70-99) 115 mg/dL (70-99) Sodium Level 141 mmol/L (136-145) Potassium Level 4.0 mmol/L (3.5-5.1) Chloride Level 104 mmol/L (98-107) Carbon Dioxide Level 26 mmol/L (21-32) Anion Gap 11 (6-14) Blood Urea Nitrogen 33 mg/dL (7-20) Creatinine 2.3 mg/dL (0.6-1.0) Estimated GFR (Cockcroft-Gault) 21.1 Glucose Level 109 mg/dL (70-99) Calcium Level 8.0 mg/dL (8.5-10.1) Phosphorus Level 4.5 mg/dL (2.6-4.7) Albumin 3.0 g/dL (3.4-5.0) Laboratory Tests Test 12/24/20 11:37 12/24/20 16:28 12/24/20 20:15 12/25/20 03:40 Glucose (Fingerstick) 97 mg/dL (70-99) 116 mg/dL (70-99) 91 mg/dL (70-99) Sodium Level 141 mmol/L (136-145) Potassium Level 4.0 mmol/L (3.5-5.1) Chloride Level 104 mmol/L (98-107) Carbon Dioxide Level 26 mmol/L (21-32) Anion Gap 11 (6-14) Blood Urea Nitrogen 33 mg/dL (7-20) Creatinine 2.3 mg/dL (0.6-1.0) Estimated GFR (Cockcroft-Gault) 21.1 Glucose Level 109 mg/dL (70-99) Calcium Level 8.0 mg/dL (8.5-10.1) Phosphorus Level 4.5 mg/dL (2.6-4.7) Albumin 3.0 g/dL (3.4-5.0) Test 12/25/20 07:31 Glucose (Fingerstick) 115 mg/dL (70-99) Medications Current Medications Furosemide (Lasix) 40 mg 1X ONCE IVP Last administered on 12/23/20at 13:49; Start 12/23/20 at 13:45; Stop 12/23/20 at 13:46; Status DC Apixaban (Eliquis) 5 mg BID PO Last administered on 12/25/20at 09:16; Start 12/23/20 at 21:00 Dronedarone (Multaq) 400 mg BID PO Last administered on 12/25/20 09:16; Start 12/23/20 at 21:00 Gabapentin (Neurontin) 300 mg TID PO Last administered on 12/25/20 09:16; Start 12/23/20 at 21:00 Lisinopril (Prinivil) 10 mg HS PO Last administered on 12/23/20 20:56; Start 12/23/20 at 21:00 Metoprolol Tartrate (Lopressor) 25 mg BID PO ; Start 12/23/20 at 21:00 Ondansetron HCl (Zofran Odt) 4 mg PRN TID PRN PO NAUSEA/VOMITING Last administered on 12/23/20 18:39; Start 12/23/20 at 17:45 Pantoprazole Sodium (Protonix) 40 mg BIDAC PO Last administered on 12/25/20 09:16; Start 12/23/20 at 21:00 Trimethoprim/ Sulfamethoxazole (Bactrim Ds) 1 tab BID PO Last administered on 12/25/20 09:14; Start 12/23/20 at 21:00 Tramadol HCl (Ultram) 50 mg PRN Q8HRS PRN PO PAIN; Start 12/23/20 at 17:45 Non-Formulary Medication (Amoxicillin ) 1 tab BID PO Last administered on 12/25/20 09:16; Start 12/23/20 at 21:00 Vitamin D (Vitamin D3) 5,000 unit DAILY PO Last administered on 12/25/20 09:15; Start 12/24/20 at 09:00 Fish Oil (Fish Oil) 1,000 mg DAILY PO Last administered on 12/25/20 09:16; Start 12/24/20 at 09:00 Multivitamins/ Minerals (I-Brian) 1 tab DAILY PO Last administered on 12/25/20 09:14; Start 12/24/20 at 09:00 Hydralazine HCl (Apresoline Inj) 10 mg PRN Q4HRS PRN IVP ELEVATED BP, SEE COMMENTS; Start 12/23/20 at 20:30 Insulin Human Lispro (HumaLOG) 0-5 UNITS TIDWMEALS SQ ; Start 12/24/20 at 08:00 Dextrose (Dextrose 50%-Water Syringe) 12.5 gm PRN Q15MIN PRN IV SEE COMMENTS; Start 12/23/20 at 20:45 Lactobacillus Rhamnosus (Culturelle) 1 cap BID PO Last administered on 12/25/20at 09:14; Start 12/24/20 at 12:00 Info (Anti-Coagulation Monitoring By Pharmacy) 1 each PRN DAILY PRN MC SEE COMMENTS Last administered on 12/24/20at 13:51; Start 12/24/20 at 13:45 Active Scripts Active Reported Amoxicillin 875 Mg Tablet 1 Tab PO BID 8 Days Bactrim Ds Tablet (Sulfamethoxazole/Trimethoprim) 1 Each Tablet 1 Tab PO BID 8 Days Ondansetron Odt (Ondansetron) 4 Mg Tab.rapdis 1 Tab PO PRN TID PRN Multaq (Dronedarone Hcl) 400 Mg Tablet 1 Tab PO BID Eliquis (Apixaban) 5 Mg Tablet 5 Mg PO BID Gabapentin (Gabapentin) 300 Mg Capsule 300 Mg PO TID Lisinopril 5 Mg Tablet 10 Mg PO HS Pantoprazole Sodium (Pantoprazole Sodium) 40 Mg Tablet.dr 40 Mg PO BID Metoprolol Tartrate 50 Mg Tablet 25 Mg PO DAILY Acetaminophen 500 Mg Tablet 500 Mg PO PRN Q4-6HRS PRN Tramadol Hcl 50 Mg Tablet 50 Mg PO PRN Q8HRS PRN [occuvite] 1 Tab PO DAILY Vitamin D3 (Cholecalciferol (Vitamin D3)) 5,000 Unit Tab.rapdis 5,000 Unit PO DAILY Fish Oil 1,200 mg Softgel (Charlotte-3/Dha/Epa/Fish Oil) 1 Each Capsule. 1 Each PO DAILY Vitals/I & O Vital Sign - Last 24 Hours 12/24/20 12/24/20 12/24/20 12/24/20 11:00 15:00 19:36 20:00 Temp 97.9 98.0 97.7 97.9 98.0 97.7 Pulse 46 40 44 Resp 20 18 16 B/P (MAP) 106/55 (72) 98/42 (60) 95/46 (62) Pulse Ox 97 99 95 O2 Delivery Room Air Nasal Cannula Nasal Cannula Room Air O2 Flow Rate 2.0 2.0 2.0 12/24/20 12/24/20 12/24/20 12/25/20 21:00 21:00 23:09 03:44 Temp 98.2 98.3 98.2 98.3 Pulse 45 66 47 Resp 20 18 B/P (MAP) 95/46 95/46 83/31 (48) 112/56 (74) Pulse Ox 99 96 O2 Delivery Nasal Cannula Nasal Cannula O2 Flow Rate 2.0 3.0 12/25/20 12/25/20 12/25/20 07:00 09:00 09:16 Temp 97.8 97.8 Pulse 61 61 61 Resp 19 B/P (MAP) 105/50 (68) 105/50 105/50 Pulse Ox 94 O2 Delivery Nasal Cannula O2 Flow Rate 3.0 Intake and Output 12/24/20 12/24/20 12/25/20 15:00 23:00 07:00 Intake Total 600 ml 300 ml 110 ml Output Total 300 ml Balance 600 ml 300 ml -190 ml Justicifation of Admission Dx: Justifications for Admission: Justification of Admission Dx: Yes CHF: Sev. Electrolyte Abnormal CAROL PRUITT MD Dec 25, 2020 10:18
[2020-12-25 11:00] VITALS: BP 114/78
--- NOTE | 2020-12-25 12:13 | PDOC ---
Renal-Progress Notes Subjective Notes Notes FEELS WELL History of Present Illness Hx of present illness STABLE Vitals Vitals Vital Signs Date Time Temp Pulse Resp B/P (MAP) Pulse Ox O2 Delivery O2 Flow Rate FiO2 12/25/20 09:16 61 105/50 12/25/20 07:00 97.8 19 94 Nasal Cannula 3.0 97.8 Weight Weight [ ] I.O. Intake and Output Intake and Output 12/25/20 07:00 Intake Total 1010 ml Output Total 300 ml Balance 710 ml Intake Oral 1010 ml Output Urine Total 300 ml # Voids 2 Labs Labs Laboratory Tests Test 12/24/20 16:28 12/24/20 20:15 12/25/20 03:40 12/25/20 07:31 Glucose (Fingerstick) 116 mg/dL (70-99) 91 mg/dL (70-99) 115 mg/dL (70-99) Sodium Level 141 mmol/L (136-145) Potassium Level 4.0 mmol/L (3.5-5.1) Chloride Level 104 mmol/L (98-107) Carbon Dioxide Level 26 mmol/L (21-32) Anion Gap 11 (6-14) Blood Urea Nitrogen 33 mg/dL (7-20) Creatinine 2.3 mg/dL (0.6-1.0) Estimated GFR (Cockcroft-Gault) 21.1 Glucose Level 109 mg/dL (70-99) Calcium Level 8.0 mg/dL (8.5-10.1) Phosphorus Level 4.5 mg/dL (2.6-4.7) Albumin 3.0 g/dL (3.4-5.0) Test 12/25/20 11:24 Glucose (Fingerstick) 89 mg/dL (70-99) Review of Systems Constitutional: yes: alert Ears/Nose/Throat: Yes: no symptom reported Eyes: Yes: no symptom reported Pulmonary: Yes no symptom reported Cardiovascular: Yes no symptom reported Gastrointestional: Yes: no symptom reported Genitourinary: Yes: no symptom reported Musculoskeletal: Yes: no symptom reported Skin: Yes no symptom reported Psychiatric/Neurological: Yes: no symptom reported Endocrine: Yes: no symptom reported Physical Exam General Appearance: no apparent distress Skin: warm Respiratory: decreased breath sounds Heart: S1S2 Abdomen: soft, bowel sounds present Genitourinary: bladder flat Extremities: pulses present Neurology: alert Musculoskeletal: Osteoarthritis Assessment Assessment IMP KATHY WITH CR UP TO 2.3 CKD STAGE 3B WITH CR OF 1.5-1.6 ACUTE ON CHRONIC DIASTOLIC CHF-STABLE OBESITY GLUCOSE INTOLERANCE AFIB HTN PLAN STOP BACTRIM AND LISINOPRIL 1 LITER IVF'S LOW FLOW CURRENTLY STABLE FROM CHF STANDPOINT WILL START LASIX ONCE RENAL CLEARANCE STARTS TO IMPROVE AVOID HYPOTENSION WILL FOLLOW UPDATED FAMILY D/W ATTENDING CAROLYN GLYNN MD Dec 25, 2020 12:13
[2020-12-25] MEDS: ANTI-COAG MONITOR BY PHARMACY. MC PRN (13:06)
[2020-12-25] MEDS ORDERED: IV NORMAL SALINE 1000ML BAG 1,000 ML IV ONE (13:15)
[2020-12-25] MEDS ORDERED: PIP/TAZO PER PHARMACY MC PRN (14:00)
[2020-12-25 15:00] VITALS: BP 123/83
[2020-12-25] MEDS: PIPERACILLIN/TAZOBACTAM 2.25 GM in IV NORMAL SALINE 50ML 50 ML IV SCH (17:57)
[2020-12-25 19:00] VITALS: BP 117/52
[2020-12-25] MEDS: LISINOPRIL 10 MG TABLET PO SCH (21:00)
[2020-12-25 23:08] VITALS: BP 109/44
[2020-12-26] MEDS: PIPERACILLIN/TAZOBACTAM 2.25 GM in IV NORMAL SALINE 50ML 50 ML IV SCH ×3 (00:40→11:38)
[2020-12-26 03:27] VITALS: BP 126/48
[2020-12-26 05:05] LABS: BASO # 0.1 x10^3/uL (0.0-0.2); BASO % 1 % (0-3); EOS # 0.3 x10^3/uL (0.0-0.7); EOS % 4 % (0-3); HEMATOCRIT 32.6 % (36.0-47.0); HEMOGLOBIN 10.9 g/dL (12.0-15.5); LYMPH # 1.9 x10^3/uL (1.0-4.8); LYMPH % 24 % (24-48); MEAN CORPUSCULAR HEMOGLOBIN 30 pg (25-35); MEAN CORPUSCULAR HGB CONC 33 g/dL (31-37); MEAN CORPUSCULAR VOLUME 89 fL (79-100); MONO # 0.7 x10^3/uL (0.0-1.1); MONO % 9 % (0-9); NEUT # 4.8 x10^3/uL (1.8-7.7); NEUT % 62 % (31-73); PLATELET COUNT 228 x10^3/uL (140-400); RED BLOOD COUNT 3.68 x10^6/uL (3.50-5.40); RED CELL DISTRIBUTION WIDTH 13.5 % (11.5-14.5); WHITE BLOOD COUNT 7.8 x10^3/uL (4.0-11.0)
[2020-12-26 05:37] LABS: CALCIUM 7.8 mg/dL (8.5-10.1); CREATININE 1.8 mg/dL (0.6-1.0); MAGNESIUM 2.3 mg/dL (1.8-2.4); PHOSPHORUS 4.1 mg/dL (2.6-4.7)
[2020-12-26 06:03] LABS: POTASSIUM 4.3 mmol/L (3.5-5.1)
[2020-12-26 07:00] VITALS: BP 115/53
[2020-12-26] MEDS: INSULIN LISPRO 300 UNITS/3 ML VIAL. SQ SCH ×2 (08:00→11:49)
[2020-12-26] MEDS: METOPROLOL TART IMMED RELEASE 50 MG TABLET. PO SCH (09:00)
[2020-12-26] MEDS: GABAPENTIN 300 MG CAPSULE. PO SCH ×2 (09:55→14:56)
[2020-12-26] MEDS: CHOLECALCIFEROL (VITAMIN D3) 5,000 UNIT CAPSULE PO SCH (09:55)
[2020-12-26] MEDS: LACTOBACILLUS RHAMNOSUS GG 1 CAPSULE. PO SCH (09:55)
[2020-12-26] MEDS: MULTIVITAMIN I-VITE TABLET. PO SCH (09:55)
[2020-12-26] MEDS: OMEGA-3 FATTY ACIDS/FISH OIL 1,000 MG CAPSULE. PO SCH (09:56)
[2020-12-26] MEDS: PANTOPRAZOLE 40 MG TABLET.DR. PO SCH (09:56)
[2020-12-26] MEDS: APIXABAN 5 MG TABLET. PO SCH (09:57)
[2020-12-26] MEDS: DRONEDARONE HCL 400 MG TABLET PO SCH (09:57)
--- NOTE | 2020-12-26 10:50 | RAD ---
V/Q LUNG SCAN CLINICAL INDICATIONS: Hypoxia. COMPARISON: Chest x-ray performed at December 23, 2020. TECHNIQUE: The ventilation portion of the study was not performed due to Covid 19 protocol. After IV infusion of 5.5 mCi of technetium 99m MAA, multiplanar images of both lung joy were performed. FINDINGS: Normal physiologic perfusion is seen bilaterally. No segmental perfusion defects. IMPRESSION: Normal perfusion study. Electronically signed by: Kamron Jimenez MD (12/26/2020 10:48 AM) [id number]
[2020-12-26 11:00] VITALS: BP 148/71
--- NOTE | 2020-12-26 11:12 | RAD ---
EXAM: Left inguinal sonogram. HISTORY: Left groin abscess. TECHNIQUE: Sonographic imaging of the left inguinal region at the site of reported concern was perfor med. COMPARISON: None. FINDINGS: There is a complex fluid collection within the left inguinal subcutaneous fat at the site o f palpable concern measuring 1.2 x 0.6 x 0.4 cm. This does not appear technique a skin surface. There are prominent left inguinal lymph nodes, the largest of which measures 2.2 cm in long axis with a sl ightly thickened cortex measuring 5 mm. IMPRESSION: 1. 1.2 cm complex fluid collection within the subcutaneous soft tissues of the left inguinal region a t the site of palpable concern. The imaging appearance favors a small abscess rather than hematoma. 2. Suspected reactive left inguinal lymph nodes. Electronically signed by: Trinidad Whelan MD (12/26/2020 11:09 AM) [id number]
--- NOTE | 2020-12-26 11:25 | PDOC ---
PULMONARY PROGRESS NOTES DATE: 12/26/20 TIME: 11:21 Subjective pt. remains on room air no SOA or cough no overnight issues Vitals Vital Signs Date Time Temp Pulse Resp B/P (MAP) Pulse Ox O2 Delivery O2 Flow Rate FiO2 12/26/20 09:57 49 115/53 12/26/20 07:00 98.5 23 98 Nasal Cannula 98.5 12/25/20 20:00 97.0 ROS: No Nausea, No Chest Pain, No Abdominal Pain, No Increase Cough General: Oriented X4 Lungs: Clear Cardiovascular: S1, S2 Abdomen: Soft, Non-tender, Other (obese ) Neuro Exam: Oriented Extremities: No Edema Skin: Warm, Dry Labs Laboratory Tests Test 12/24/20 11:37 12/24/20 16:28 12/24/20 20:15 12/25/20 03:40 Glucose (Fingerstick) 97 mg/dL (70-99) 116 mg/dL (70-99) 91 mg/dL (70-99) Sodium Level 141 mmol/L (136-145) Potassium Level 4.0 mmol/L (3.5-5.1) Chloride Level 104 mmol/L (98-107) Carbon Dioxide Level 26 mmol/L (21-32) Anion Gap 11 (6-14) Blood Urea Nitrogen 33 mg/dL (7-20) Creatinine 2.3 mg/dL (0.6-1.0) Estimated GFR (Cockcroft-Gault) 21.1 Glucose Level 109 mg/dL (70-99) Calcium Level 8.0 mg/dL (8.5-10.1) Phosphorus Level 4.5 mg/dL (2.6-4.7) Albumin 3.0 g/dL (3.4-5.0) Test 12/25/20 07:31 12/25/20 11:24 12/25/20 16:31 12/25/20 20:22 Glucose (Fingerstick) 115 mg/dL (70-99) 89 mg/dL (70-99) 88 mg/dL (70-99) 155 mg/dL (70-99) Test 12/26/20 03:25 12/26/20 07:33 12/26/20 11:18 White Blood Count 7.8 x10^3/uL (4.0-11.0) Red Blood Count 3.68 x10^6/uL (3.50-5.40) Hemoglobin 10.9 g/dL (12.0-15.5) Hematocrit 32.6 % (36.0-47.0) Mean Corpuscular Volume 89 fL (79-100) Mean Corpuscular Hemoglobin 30 pg (25-35) Mean Corpuscular Hemoglobin Concent 33 g/dL (31-37) Red Cell Distribution Width 13.5 % (11.5-14.5) Platelet Count 228 x10^3/uL (140-400) Neutrophils (%) (Auto) 62 % (31-73) Lymphocytes (%) (Auto) 24 % (24-48) Monocytes (%) (Auto) 9 % (0-9) Eosinophils (%) (Auto) 4 % (0-3) Basophils (%) (Auto) 1 % (0-3) Neutrophils # (Auto) 4.8 x10^3/uL (1.8-7.7) Lymphocytes # (Auto) 1.9 x10^3/uL (1.0-4.8) Monocytes # (Auto) 0.7 x10^3/uL (0.0-1.1) Eosinophils # (Auto) 0.3 x10^3/uL (0.0-0.7) Basophils # (Auto) 0.1 x10^3/uL (0.0-0.2) Sodium Level 143 mmol/L (136-145) Potassium Level 4.3 mmol/L (3.5-5.1) Chloride Level 108 mmol/L (98-107) Carbon Dioxide Level 25 mmol/L (21-32) Anion Gap 10 (6-14) Blood Urea Nitrogen 26 mg/dL (7-20) Creatinine 1.8 mg/dL (0.6-1.0) Estimated GFR (Cockcroft-Gault) 28.0 Glucose Level 108 mg/dL (70-99) Calcium Level 7.8 mg/dL (8.5-10.1) Phosphorus Level 4.1 mg/dL (2.6-4.7) Magnesium Level 2.3 mg/dL (1.8-2.4) Glucose (Fingerstick) 114 mg/dL (70-99) 98 mg/dL (70-99) Laboratory Tests Test 12/25/20 11:24 4/25/21 16:31 12/25/20 20:22 12/26/20 03:25 Glucose (Fingerstick) 89 mg/dL (70-99) 88 mg/dL (70-99) 155 mg/dL (70-99) White Blood Count 7.8 x10^3/uL (4.0-11.0) Red Blood Count 3.68 x10^6/uL (3.50-5.40) Hemoglobin 10.9 g/dL (12.0-15.5) Hematocrit 32.6 % (36.0-47.0) Mean Corpuscular Volume 89 fL (79-100) Mean Corpuscular Hemoglobin 30 pg (25-35) Mean Corpuscular Hemoglobin Concent 33 g/dL (31-37) Red Cell Distribution Width 13.5 % (11.5-14.5) Platelet Count 228 x10^3/uL (140-400) Neutrophils (%) (Auto) 62 % (31-73) Lymphocytes (%) (Auto) 24 % (24-48) Monocytes (%) (Auto) 9 % (0-9) Eosinophils (%) (Auto) 4 % (0-3) Basophils (%) (Auto) 1 % (0-3) Neutrophils # (Auto) 4.8 x10^3/uL (1.8-7.7) Lymphocytes # (Auto) 1.9 x10^3/uL (1.0-4.8) Monocytes # (Auto) 0.7 x10^3/uL (0.0-1.1) Eosinophils # (Auto) 0.3 x10^3/uL (0.0-0.7) Basophils # (Auto) 0.1 x10^3/uL (0.0-0.2) Sodium Level 143 mmol/L (136-145) Potassium Level 4.3 mmol/L (3.5-5.1) Chloride Level 108 mmol/L (98-107) Carbon Dioxide Level 25 mmol/L (21-32) Anion Gap 10 (6-14) Blood Urea Nitrogen 26 mg/dL (7-20) Creatinine 1.8 mg/dL (0.6-1.0) Estimated GFR (Cockcroft-Gault) 28.0 Glucose Level 108 mg/dL (70-99) Calcium Level 7.8 mg/dL (8.5-10.1) Phosphorus Level 4.1 mg/dL (2.6-4.7) Magnesium Level 2.3 mg/dL (1.8-2.4) Test 12/26/20 07:33 12/26/20 11:18 Glucose (Fingerstick) 114 mg/dL (70-99) 98 mg/dL (70-99) Medications Active Scripts Medications Dose Route/Sig Max Daily Dose Days Date Category Amoxicillin 875 Mg Tablet 1 Tab PO BID 8 12/23/20 Reported Bactrim Ds Tablet (Sulfamethoxazole/Trimethoprim) 1 Each Tablet 1 Tab PO BID 8 12/23/20 Reported Ondansetron Odt (Ondansetron) 4 Mg Tab.rapdis 1 Tab PO PRN TID PRN 12/23/20 Reported Multaq (Dronedarone Hcl) 400 Mg Tablet 1 Tab PO BID 12/23/20 Reported Eliquis (Apixaban) 5 Mg Tablet 5 Mg PO BID 11/02/19 Reported Gabapentin (Gabapentin) 300 Mg Capsule 300 Mg PO TID 11/02/19 Reported Lisinopril 5 Mg Tablet 10 Mg PO HS 11/02/19 Reported Pantoprazole Sodium (Pantoprazole Sodium) 40 Mg Tablet.dr 40 Mg PO BID 11/02/19 Reported Metoprolol Tartrate 50 Mg Tablet 25 Mg PO DAILY 11/02/19 Reported Acetaminophen 500 Mg Tablet 500 Mg PO PRN Q4-6HRS PRN 11/02/19 Reported Tramadol Hcl 50 Mg Tablet 50 Mg PO PRN Q8HRS PRN 11/02/19 Reported [occuvite] 1 Tab PO DAILY 11/02/19 Reported Vitamin D3 (Cholecalciferol (Vitamin D3)) 5,000 Unit Tab.rapdis 5,000 Unit PO DAILY 11/02/19 Reported Fish Oil 1,200 mg Softgel (Sumerco-3/Dha/Epa/Fish Oil) 1 Each Capsule.dr 1 Each PO DAILY 11/02/19 Reported Impression . IMPRESSION: 1. Acute respiratory failure secondary to acute diastolic congestive heart failure, untreated obstructive sleep apnea/hypopnea syndrome. 2. Acute diastolic congestive heart failure. 3. Hypertension. 4. Obstructive sleep apnea/hypopnea syndrome. 5. Paroxysmal atrial fibrillation. 6. Chronic kidney disease. 7. Hyperlipidemia. 8. History of splenic artery aneurysm. PLAN AND RECOMMENDATIONS: 1. Transferred FIO2 to keep O2 saturation 90%. 2. Treatment of CHF per cardiology. 3. Lose weight and exercise. 4. Her creatinine is elevated. Nephrology is on the case. 5. I have discussed obstructive sleep apnea/hypopnea syndrome, the importance of treatment, if untreated increased cardiovascular and [employer] morbidity and mortality. Unfortunately, a sleep study was done 2 years ago. We need to restart. She will need a sleep study as an outpatient and follow up with Dr. Palafox in his office. 6. She is on Eliquis for paroxysmal atrial fibrillation. 7. The findings and recommendations were discussed with the patient and her . They understood and agreed to proceed with the plan. I have answered all of their questions. I ask RN to give her Dr. Palafox's office telephone number. Plan . PLAN AND RECOMMENDATIONS: Pt. is table from respiratory standpoint remaisn non room air NOC ox study showed need fro oxygen, however pt. would benefit from outpatient sleep study, follow up with me in office Follow cardiology recs Follow nephrology recs VQ scan reviewed DVT/GI PPX -- on eliquis educate on weight loss ok to DC from our stand point D/W UZIEL MORA MD Dec 26, 2020 11:25
[2020-12-26] MEDS ORDERED: ONDANSETRON PF 4 MG/2 ML VIAL. IVP PRN (11:45)
--- NOTE | 2020-12-26 11:59 | PDOC ---
[facility] PROGRESS NOTE Date of Service DOS: DATE: 12/26/20 TIME: 11:30 Chief Complaint Chief Complaint A/P: Acute dyspnea acute hypoxic resp failure HX A FIB ON ELIQUIS Acute diastolic CHF moderate tricuspid regurgitation with an estimated PAP of 36 mmHg. severe morbid obesity LIKELY CHRISTINA Successful CVN to SR with 360 Joules 04-05-2020 calcified granuloma within the left lower lobe Small partially calcified splenic artery aneurysm. ckd stage 3 b cr up to 1.6 CKD DUE TO DM II AND HTN. diabetes recent left groin abscess ANXIETY HYPERLIPIDEMIA BRADYCARDIA NORMOCYTIC ANEMIA PLAN IV LASIX X 1 IN ER tele Cardiology consult home meds ADMIT ACCUCHECKS SS INSULIN A1C AVOID Nephrotoxic meds nephrology consult IV HYDRALAZINE 10 MG Q 4 HRS PRN BP SUPPORT 6 MIN WALK v/q scan 12-25 renal fx worse, stop lisinopril, bactrim, iv hydrate D/W DR GLYNN D/W RN Justifications for Admission Other Justification History of Present Illness History of Present Illness Ms Yusuf is a 70 yo F w/ PMHx afib, GERD, HLD, HTN, IBS, CKD who presented to the ED on 12/23/2020 new onset dyspnea, has suspected CHRISTINA, known severe obesity, diabetes PRO bnp in ER = 950 CR 1.4 recent left groin abscess on amoxil and bactrim for an abscess in her left groin. KNOWN Small partially calcified splenic artery aneurysm. , BP POORLY CONTROLLED IN ER. Admitted for treatment of worsening CHF 12/24: ckd stage 3 b cr up to 1.6. Nephrology and pulmonology consulted 12/25: Left groin US confirms small 1.3cm abscess. She feels it is improving on zosyn. Nocturnal oximetry with some occasional hypoxia, needs outpatient sleep study vs home O2. D/w pulmonology a formal sleep study and CPAP would be more appropriate. Afebrile. BP well controlled. Had some nausea and vomiting this morning. Notes this has been ongoing and she sees Dr. Lang outpatient, takes TID zofran ODT for this. Vitals/I&O Vitals/I&O: Vital Signs Date Time Temp Pulse Resp B/P (MAP) Pulse Ox O2 Delivery O2 Flow Rate FiO2 12/26/20 09:57 49 115/53 12/26/20 07:00 98.5 23 98 Nasal Cannula 98.5 12/25/20 20:00 97.0 I & O 12/25/20 12/25/20 12/26/20 15:00 23:00 07:00 Intake Total 600 ml 300 ml Balance 600 ml 300 ml Physical Exam General: Alert, Oriented X3, Cooperative, No acute distress Heart: Regular rate, Normal S1, Normal S2 Lungs: Clear Abdomen: Normal bowel sounds, No tenderness Extremities: No clubbing, No cyanosis Skin: No breakdown Labs Labs: Laboratory Tests Test 12/25/20 16:31 12/25/20 20:22 12/26/20 03:25 12/26/20 07:33 Glucose (Fingerstick) 88 mg/dL (70-99) 155 mg/dL (70-99) 114 mg/dL (70-99) White Blood Count 7.8 x10^3/uL (4.0-11.0) Red Blood Count 3.68 x10^6/uL (3.50-5.40) Hemoglobin 10.9 g/dL (12.0-15.5) Hematocrit 32.6 % (36.0-47.0) Mean Corpuscular Volume 89 fL (79-100) Mean Corpuscular Hemoglobin 30 pg (25-35) Mean Corpuscular Hemoglobin Concent 33 g/dL (31-37) Red Cell Distribution Width 13.5 % (11.5-14.5) Platelet Count 228 x10^3/uL (140-400) Neutrophils (%) (Auto) 62 % (31-73) Lymphocytes (%) (Auto) 24 % (24-48) Monocytes (%) (Auto) 9 % (0-9) Eosinophils (%) (Auto) 4 % (0-3) Basophils (%) (Auto) 1 % (0-3) Neutrophils # (Auto) 4.8 x10^3/uL (1.8-7.7) Lymphocytes # (Auto) 1.9 x10^3/uL (1.0-4.8) Monocytes # (Auto) 0.7 x10^3/uL (0.0-1.1) Eosinophils # (Auto) 0.3 x10^3/uL (0.0-0.7) Basophils # (Auto) 0.1 x10^3/uL (0.0-0.2) Sodium Level 143 mmol/L (136-145) Potassium Level 4.3 mmol/L (3.5-5.1) Chloride Level 108 mmol/L (98-107) Carbon Dioxide Level 25 mmol/L (21-32) Anion Gap 10 (6-14) Blood Urea Nitrogen 26 mg/dL (7-20) Creatinine 1.8 mg/dL (0.6-1.0) Estimated GFR (Cockcroft-Gault) 28.0 Glucose Level 108 mg/dL (70-99) Calcium Level 7.8 mg/dL (8.5-10.1) Phosphorus Level 4.1 mg/dL (2.6-4.7) Magnesium Level 2.3 mg/dL (1.8-2.4) Test 12/26/20 11:18 Glucose (Fingerstick) 98 mg/dL (70-99) Assessment and Plan Assessmemt and Plan Problems Medical Problems: (1) CHF (congestive heart failure) Status: Acute (2) Dyspnea Status: Acute Comment Review of Relevant I have reviewed the following items joshua (where applicable) has been applied. Medications: Current Medications Medications (Trade) Dose Ordered Sig/Abdoulaye Route PRN Reason Start Time Stop Time Status Last Admin Dose Admin Sodium Chloride 1,000 ml @ 75 mls/hr 1X ONCE IV 12/25/20 13:15 12/26/20 02:34 DC 12/25/20 13:53 Piperacillin Sod/ Tazobactam Sod 2.25 gm/Sodium Chloride 50 ml @ 100 mls/hr Q6HRS IV 12/25/20 18:00 12/26/20 05:56 Justifications for Admission Other Justification BRITTNI HICKS MD Dec 26, 2020 11:59
[2020-12-26] MEDS ORDERED: DOXYCYCLINE HYCLATE 100 MG TABLET PO SCH (12:00)
--- NOTE | 2020-12-26 12:02 | PDOC3 ---
Discharge Summary Visit Information Date of Admission: Dec 23, 2020 Date of Discharge: Dec 26, 2020 Admitting Diagnosis: Acute diastolic CHF Final Diagnosis Problems Medical Problems: (1) CHF (congestive heart failure) Status: Acute (2) Dyspnea Status: Acute Brief Hospital Course Allergies Allergies Coded Allergies Type Severity Reaction Last Updated Verified cephalexin Allergy Severe HIVES 12/23/20 Yes erythromycin base Allergy Mild "HURTS MY STOMACH REAL BAD" 11/02/19 Yes Vital Signs Vital Signs Date Time Temp Pulse Resp B/P (MAP) Pulse Ox O2 Delivery O2 Flow Rate FiO2 12/26/20 09:57 49 115/53 12/26/20 07:00 98.5 23 98 Nasal Cannula 98.5 12/25/20 20:00 97.0 Lab Results Laboratory Tests Test 12/24/20 16:28 12/24/20 20:15 12/25/20 03:40 12/25/20 07:31 Glucose (Fingerstick) 116 mg/dL (70-99) 91 mg/dL (70-99) 115 mg/dL (70-99) Sodium Level 141 mmol/L (136-145) Potassium Level 4.0 mmol/L (3.5-5.1) Chloride Level 104 mmol/L (98-107) Carbon Dioxide Level 26 mmol/L (21-32) Anion Gap 11 (6-14) Blood Urea Nitrogen 33 mg/dL (7-20) Creatinine 2.3 mg/dL (0.6-1.0) Estimated GFR (Cockcroft-Gault) 21.1 Glucose Level 109 mg/dL (70-99) Calcium Level 8.0 mg/dL (8.5-10.1) Phosphorus Level 4.5 mg/dL (2.6-4.7) Albumin 3.0 g/dL (3.4-5.0) Test 12/25/20 11:24 12/25/20 16:31 12/25/20 20:22 12/26/20 03:25 Glucose (Fingerstick) 89 mg/dL (70-99) 88 mg/dL (70-99) 155 mg/dL (70-99) White Blood Count 7.8 x10^3/uL (4.0-11.0) Red Blood Count 3.68 x10^6/uL (3.50-5.40) Hemoglobin 10.9 g/dL (12.0-15.5) Hematocrit 32.6 % (36.0-47.0) Mean Corpuscular Volume 89 fL (79-100) Mean Corpuscular Hemoglobin 30 pg (25-35) Mean Corpuscular Hemoglobin Concent 33 g/dL (31-37) Red Cell Distribution Width 13.5 % (11.5-14.5) Platelet Count 228 x10^3/uL (140-400) Neutrophils (%) (Auto) 62 % (31-73) Lymphocytes (%) (Auto) 24 % (24-48) Monocytes (%) (Auto) 9 % (0-9) Eosinophils (%) (Auto) 4 % (0-3) Basophils (%) (Auto) 1 % (0-3) Neutrophils # (Auto) 4.8 x10^3/uL (1.8-7.7) Lymphocytes # (Auto) 1.9 x10^3/uL (1.0-4.8) Monocytes # (Auto) 0.7 x10^3/uL (0.0-1.1) Eosinophils # (Auto) 0.3 x10^3/uL (0.0-0.7) Basophils # (Auto) 0.1 x10^3/uL (0.0-0.2) Sodium Level 143 mmol/L (136-145) Potassium Level 4.3 mmol/L (3.5-5.1) Chloride Level 108 mmol/L (98-107) Carbon Dioxide Level 25 mmol/L (21-32) Anion Gap 10 (6-14) Blood Urea Nitrogen 26 mg/dL (7-20) Creatinine 1.8 mg/dL (0.6-1.0) Estimated GFR (Cockcroft-Gault) 28.0 Glucose Level 108 mg/dL (70-99) Calcium Level 7.8 mg/dL (8.5-10.1) Phosphorus Level 4.1 mg/dL (2.6-4.7) Magnesium Level 2.3 mg/dL (1.8-2.4) Test 12/26/20 07:33 12/26/20 11:18 Glucose (Fingerstick) 114 mg/dL (70-99) 98 mg/dL (70-99) Laboratory Tests Test 12/25/20 16:31 12/25/20 20:22 12/26/20 03:25 12/26/20 07:33 Glucose (Fingerstick) 88 mg/dL (70-99) 155 mg/dL (70-99) 114 mg/dL (70-99) White Blood Count 7.8 x10^3/uL (4.0-11.0) Red Blood Count 3.68 x10^6/uL (3.50-5.40) Hemoglobin 10.9 g/dL (12.0-15.5) Hematocrit 32.6 % (36.0-47.0) Mean Corpuscular Volume 89 fL (79-100) Mean Corpuscular Hemoglobin 30 pg (25-35) Mean Corpuscular Hemoglobin Concent 33 g/dL (31-37) Red Cell Distribution Width 13.5 % (11.5-14.5) Platelet Count 228 x10^3/uL (140-400) Neutrophils (%) (Auto) 62 % (31-73) Lymphocytes (%) (Auto) 24 % (24-48) Monocytes (%) (Auto) 9 % (0-9) Eosinophils (%) (Auto) 4 % (0-3) Basophils (%) (Auto) 1 % (0-3) Neutrophils # (Auto) 4.8 x10^3/uL (1.8-7.7) Lymphocytes # (Auto) 1.9 x10^3/uL (1.0-4.8) Monocytes # (Auto) 0.7 x10^3/uL (0.0-1.1) Eosinophils # (Auto) 0.3 x10^3/uL (0.0-0.7) Basophils # (Auto) 0.1 x10^3/uL (0.0-0.2) Sodium Level 143 mmol/L (136-145) Potassium Level 4.3 mmol/L (3.5-5.1) Chloride Level 108 mmol/L (98-107) Carbon Dioxide Level 25 mmol/L (21-32) Anion Gap 10 (6-14) Blood Urea Nitrogen 26 mg/dL (7-20) Creatinine 1.8 mg/dL (0.6-1.0) Estimated GFR (Cockcroft-Gault) 28.0 Glucose Level 108 mg/dL (70-99) Calcium Level 7.8 mg/dL (8.5-10.1) Phosphorus Level 4.1 mg/dL (2.6-4.7) Magnesium Level 2.3 mg/dL (1.8-2.4) Test 12/26/20 11:18 Glucose (Fingerstick) 98 mg/dL (70-99) Brief Hospital Course Ms Yusuf is a 70 yo F w/ PMHx afib, GERD, HLD, HTN, IBS, CKD who presented to the ED on 12/23/2020 new onset dyspnea, has suspected CHRISTINA, known severe obesity, diabetes PRO bnp in ER = 950 CR 1.4 recent left groin abscess on amoxil and bactrim for an abscess in her left groin. KNOWN Small partially calcified splenic artery aneurysm. , BP POORLY CONTROLLED IN ER. Admitted for treatment of worsening CHF 12/24: ckd stage 3 b cr up to 1.6. Nephrology and pulmonology consulted 12/25: Left groin US confirms small 1.3cm abscess. She feels it is improving on zosyn. Nocturnal oximetry with some occasional hypoxia, needs outpatient sleep study vs home O2. D/w pulmonology a formal sleep study and CPAP would be more appropriate. Afebrile. BP well controlled. Had some nausea and vomiting this morning. Notes this has been ongoing and she sees Dr. Lang outpatient, takes TID zofran ODT for this. Problem list: Acute dyspnea acute hypoxic resp failure HX A FIB ON ELIQUIS Acute diastolic CHF moderate tricuspid regurgitation with an estimated PAP of 36 mmHg. severe morbid obesity LIKELY CHRISTINA Successful CVN to SR with 360 Joules 04-05-2020 calcified granuloma within the left lower lobe Small partially calcified splenic artery aneurysm. ckd stage 3 b cr up to 1.6 CKD DUE TO DM II AND HTN. diabetes recent left groin abscess ANXIETY HYPERLIPIDEMIA BRADYCARDIA NORMOCYTIC ANEMIA PLAN: IV LASIX improved symptoms Home meds A1C - 5.9 AVOID Nephrotoxic meds Consults: nephrology, cardiology, pulmonology 6 MIN WALK - no O2 needs v/q scan - normal perfusion Discharge Information Condition at Discharge: Improved Follow Up: Weeks (1) Disposition/Orders: D/C to Home Scheduled Amoxicillin (Amoxicillin) 875 Mg Tablet, 1 TAB PO BID for repiratory infection for 8 Days, #16 (Reported) Entered as Reported by: EDGARDO LOCKHART RN on 12/23/201643 Last Taken: Unknown Dose on 12/23/20 Last Action: Converted on 12/23/201739 by EDGARDO LOCKHART RN Apixaban (Eliquis) 5 Mg Tablet, 5 MG PO BID for afib, (Reported) Entered as Reported by: LUCIAN PHILLIPS on 11/02/192125 Last Action: Continued on 12/23/201739 by EDGARDO LOCKHART RN Cholecalciferol (Vitamin D3) (Vitamin D3) 5,000 Unit Tab.rapdis, 5,000 UNIT PO DAILY for supplement, (Reported) Entered as Reported by: LUCIAN PHILLIPS on 11/02/191956 Last Action: Converted on 12/23/201739 by EDGARDO LOCKHART RN Dronedarone Hcl (Multaq) 400 Mg Tablet, 1 TAB PO BID for CAD, A-fib, #180 Ref 1 (Reported) Entered as Reported by: EDGARDO LOCKHART RN on 12/23/201643 Last Taken: Unknown Dose on Unknown Date & Time Last Action: Continued on 12/23/201739 by EDGARDO LOCKHART RN Gabapentin (Gabapentin ) 300 Mg Capsule, 300 MG PO TID for NEUROGENIC PAIN, (Reported) Entered as Reported by: LUCIAN PHILLIPS on 11/02/191956 Last Action: Continued on 12/23/201739 by EDGARDO LOCKHART RN Lisinopril (Lisinopril) 5 Mg Tablet, 10 MG PO HS for FOR HYPERTENSION, #30 Ref 0 (Reported) Entered as Reported by: LUCIAN PHILLIPS on 11/02/191956 Last Action: Continued on 12/23/201739 by EDGARDO LOCKHART RN Metoprolol Tartrate (Metoprolol Tartrate) 50 Mg Tablet, 25 MG PO DAILY for FOR HYPERTENSION, #60 Ref 0 (Reported) Entered as Reported by: LUCIAN PHILLIPS on 11/02/191956 Last Action: Continued on 12/23/201739 by EDGRADO LOCKHART RN Meacham-3/Dha/Epa/Fish Oil (Fish Oil 1,200 mg Softgel) 1 Each Capsule.dr, 1 EACH PO DAILY for supplement, (Reported) Entered as Reported by: LUCIAN PHILLIPS on 11/02/191956 Last Action: Converted on 12/23/201739 by EDGARDO LOCKHART RN Pantoprazole Sodium (Pantoprazole Sodium ) 40 Mg Tablet.dr, 40 MG PO BID for GERD, (Reported) Entered as Reported by: LUCIAN PHILLIPS on 11/02/191956 Last Action: Continued on 12/23/201739 by EDGARDO LOCKHART RN Sulfamethoxazole/Trimethoprim (Bactrim Ds Tablet) 1 Each Tablet, 1 TAB PO BID for vaginal abcess for 8 Days, #16 Ref 0 (Reported) Entered as Reported by: EDGARDO LOCKHART RN on 12/23/201643 Last Taken: Unknown Dose on 12/23/20 Last Action: Continued on 12/23/201739 by EDGARDO LOCKHART RN [occuvite] , 1 TAB PO DAILY for supplement, (Reported) Entered as Reported by: LUCIAN PHILLIPS on 11/02/191956 Last Action: Converted on 12/23/201739 by EDGARDO LOCKHART RN Scheduled PRN Acetaminophen (Acetaminophen) 500 Mg Tablet, 500 MG PO PRN Q4-6HRS PRN for MILD PAIN / TEMP, (Reported) Entered as Reported by: LUCIAN PHILLIPS on 11/02/191956 Ondansetron (Ondansetron Odt) 4 Mg Tab.rapdis, 1 TAB PO PRN TID PRN for NAUSEA/V OMITING, #16 (Reported) Entered as Reported by: EDGARDO LOCKHART RN on 12/23/201643 Last Taken: Unknown Dose on Unknown Date & Time Last Action: Continued on 12/23/201739 by EDGARDO LOCKHART RN Tramadol Hcl (Tramadol Hcl) 50 Mg Tablet, 50 MG PO PRN Q8HRS PRN for PAIN, (Reported) Entered as Reported by: LUCIAN PHILLIPS on 11/02/191956 Last Action: Continued on 12/23/201739 by EDGARDO LOCKHART RN Discontinued Medications Amiodarone Hcl (Amiodarone Hcl) 200 Mg Tablet, 200 MG PO DAILY for AFIB, (Reported) Entered as Reported by: KATHERYN BORGES on 04/05/20 1433 Last Action: Discontinued on 12/23/201643 by EDGARDO LOCKHART RN Cyanocobalamin (Vitamin B-12) (Vitamin B12) 5,000 Mcg Tab.rapdis, 1,000 MCG PO DAILY for supplement, (Reported) Entered as Reported by: LUCIAN PHILLIPS on 11/02/191956 Last Action: Discontinued on 12/23/201643 by EDGARDO LOCKHART RN [spectravite women's] , 2 TAB.CHEW PO DAILY for supplement, (Reported) Entered as Reported by: LUCIAN PHILLIPS on 11/02/191956 Last Action: Discontinued on 12/23/201643 by EDGARDO LOCKHART RN Justicifation of Admission Dx: Justifications for Admission: Justification of Admission Dx: Yes CHF: Sev. Electrolyte Abnormal BRITTNI HICKS MD Dec 26, 2020 12:02
[2020-12-26] MEDS ORDERED: AMOX1TAB58 PO (12:04)
[2020-12-26] MEDS ORDERED: DOXY100T PO (12:04)
[2020-12-26] MEDS ORDERED: ONDA4TAB12 PO (12:04)
--- NOTE | 2020-12-26 12:45 | PDOC ---
Renal-Progress Notes Subjective Notes Notes GETTING D/C TODAY History of Present Illness Hx of present illness STABLE Vitals Vitals Vital Signs Date Time Temp Pulse Resp B/P (MAP) Pulse Ox O2 Delivery O2 Flow Rate FiO2 12/26/20 11:00 97.8 49 44 148/71 (96) 96 Nasal Cannula 97.8 12/25/20 20:00 97.0 Weight Weight [ ] I.O. Intake and Output Intake and Output 12/26/20 07:00 Intake Total 900 ml Balance 900 ml Intake Oral 900 ml # Voids 2 Labs Labs Laboratory Tests Test 12/25/20 16:31 12/25/20 20:22 12/26/20 03:25 12/26/20 07:33 Glucose (Fingerstick) 88 mg/dL (70-99) 155 mg/dL (70-99) 114 mg/dL (70-99) White Blood Count 7.8 x10^3/uL (4.0-11.0) Red Blood Count 3.68 x10^6/uL (3.50-5.40) Hemoglobin 10.9 g/dL (12.0-15.5) Hematocrit 32.6 % (36.0-47.0) Mean Corpuscular Volume 89 fL (79-100) Mean Corpuscular Hemoglobin 30 pg (25-35) Mean Corpuscular Hemoglobin Concent 33 g/dL (31-37) Red Cell Distribution Width 13.5 % (11.5-14.5) Platelet Count 228 x10^3/uL (140-400) Neutrophils (%) (Auto) 62 % (31-73) Lymphocytes (%) (Auto) 24 % (24-48) Monocytes (%) (Auto) 9 % (0-9) Eosinophils (%) (Auto) 4 % (0-3) Basophils (%) (Auto) 1 % (0-3) Neutrophils # (Auto) 4.8 x10^3/uL (1.8-7.7) Lymphocytes # (Auto) 1.9 x10^3/uL (1.0-4.8) Monocytes # (Auto) 0.7 x10^3/uL (0.0-1.1) Eosinophils # (Auto) 0.3 x10^3/uL (0.0-0.7) Basophils # (Auto) 0.1 x10^3/uL (0.0-0.2) Sodium Level 143 mmol/L (136-145) Potassium Level 4.3 mmol/L (3.5-5.1) Chloride Level 108 mmol/L (98-107) Carbon Dioxide Level 25 mmol/L (21-32) Anion Gap 10 (6-14) Blood Urea Nitrogen 26 mg/dL (7-20) Creatinine 1.8 mg/dL (0.6-1.0) Estimated GFR (Cockcroft-Gault) 28.0 Glucose Level 108 mg/dL (70-99) Calcium Level 7.8 mg/dL (8.5-10.1) Phosphorus Level 4.1 mg/dL (2.6-4.7) Magnesium Level 2.3 mg/dL (1.8-2.4) Test 12/26/20 11:18 Glucose (Fingerstick) 98 mg/dL (70-99) Review of Systems Constitutional: yes: alert Ears/Nose/Throat: Yes: no symptom reported Eyes: Yes: no symptom reported Pulmonary: Yes no symptom reported Cardiovascular: Yes no symptom reported Gastrointestional: Yes: no symptom reported Genitourinary: Yes: no symptom reported Musculoskeletal: Yes: no symptom reported Skin: Yes no symptom reported Psychiatric/Neurological: Yes: no symptom reported Endocrine: Yes: no symptom reported Physical Exam General Appearance: no apparent distress Skin: warm Respiratory: decreased breath sounds Heart: S1S2 Abdomen: soft, bowel sounds present Genitourinary: bladder flat Extremities: pulses present Neurology: alert Musculoskeletal: Osteoarthritis Assessment Assessment IMP KATHY WITH IMPROVED TO 1.9 NEAR BASELINE CKD STAGE 3B WITH CR OF 1.5-1.6 ACUTE ON CHRONIC DIASTOLIC CHF-STABLE OBESITY GLUCOSE INTOLERANCE AFIB HTN PLAN OFF BACTRIM CURRENTLY STABLE FROM CHF STANDPOINT WILL START LASIX ONCE RENAL CLEARANCE STARTS TO IMPROVE HAS OV COMING UP WILL FOLLOW D/C PLANS NOTED CAROLYN GLYNN MD Dec 26, 2020 12:45
--- NOTE | 2020-12-26 12:45 | PDOC ---
CARDIO Progress Notes Date and Time Date of Service 12/26/20 Time of Evaluation 1245 Subjective Subjective: No Chest Pain, No shortness of breath, No Palpitations Vitals Vitals Vital Signs Date Time Temp Pulse Resp B/P (MAP) Pulse Ox O2 Delivery O2 Flow Rate FiO2 12/26/20 11:00 97.8 49 44 148/71 (96) 96 Nasal Cannula 97.8 12/25/20 20:00 97.0 Weight Weight [ ] Input and Output Intake and Output Intake and Output 12/26/20 07:00 Intake Total 900 ml Balance 900 ml Intake Oral 900 ml # Voids 2 Laboratory Labs Laboratory Tests Test 12/25/20 16:31 12/25/20 20:22 12/26/20 03:25 12/26/20 07:33 Glucose (Fingerstick) 88 mg/dL (70-99) 155 mg/dL (70-99) 114 mg/dL (70-99) White Blood Count 7.8 x10^3/uL (4.0-11.0) Red Blood Count 3.68 x10^6/uL (3.50-5.40) Hemoglobin 10.9 g/dL (12.0-15.5) Hematocrit 32.6 % (36.0-47.0) Mean Corpuscular Volume 89 fL (79-100) Mean Corpuscular Hemoglobin 30 pg (25-35) Mean Corpuscular Hemoglobin Concent 33 g/dL (31-37) Red Cell Distribution Width 13.5 % (11.5-14.5) Platelet Count 228 x10^3/uL (140-400) Neutrophils (%) (Auto) 62 % (31-73) Lymphocytes (%) (Auto) 24 % (24-48) Monocytes (%) (Auto) 9 % (0-9) Eosinophils (%) (Auto) 4 % (0-3) Basophils (%) (Auto) 1 % (0-3) Neutrophils # (Auto) 4.8 x10^3/uL (1.8-7.7) Lymphocytes # (Auto) 1.9 x10^3/uL (1.0-4.8) Monocytes # (Auto) 0.7 x10^3/uL (0.0-1.1) Eosinophils # (Auto) 0.3 x10^3/uL (0.0-0.7) Basophils # (Auto) 0.1 x10^3/uL (0.0-0.2) Sodium Level 143 mmol/L (136-145) Potassium Level 4.3 mmol/L (3.5-5.1) Chloride Level 108 mmol/L (98-107) Carbon Dioxide Level 25 mmol/L (21-32) Anion Gap 10 (6-14) Blood Urea Nitrogen 26 mg/dL (7-20) Creatinine 1.8 mg/dL (0.6-1.0) Estimated GFR (Cockcroft-Gault) 28.0 Glucose Level 108 mg/dL (70-99) Calcium Level 7.8 mg/dL (8.5-10.1) Phosphorus Level 4.1 mg/dL (2.6-4.7) Magnesium Level 2.3 mg/dL (1.8-2.4) Test 12/26/20 11:18 Glucose (Fingerstick) 98 mg/dL (70-99) Review of Systems Constitutional: yes: alert Ears/Nose/Throat: Yes: no symptom reported Eyes: Yes: no symptom reported Pulmonary: Yes no symptom reported Cardiovascular: Yes no symptom reported Gastrointestional: Yes: no symptom reported Genitourinary: Yes: no symptom reported Musculoskeletal: Yes: no symptom reported Skin: Yes no symptom reported Psychiatric/Neurological: Yes: no symptom reported Endocrine: Yes: no symptom reported Physical Exam HEENT: Neck Supple W Full Motion Chest: Symmetric LUNGS: Clear to Auscultation Heart: RRR Abdomen: Soft N/T, Other (obese) Extremities: No Edema Neurology: alert, oriented, follow commands Assessment Assessment 1. Acute on chronic diastolic heart failure; appears compensated. MPI 08/21 with preserved LV systolic function, no evidence of ischemia 2. CHRISTINA; untreated 3. Hypertension; controlled 4. Dyslipidemia 5. Morbid obesity 6. KATHY on CKD; Cr better at 1.8 7. H/o AFIB s/p CV; maintaining SR with metoprolol and Multaq. on Eliquis for stroke prophylaxis. Echo 04/20 with preserved LV systolic function. Slow ventricular rate noted on tele. No pauses Recommendations Continue low-dose metoprolol and Multaq for rhythm maintenance Eliquis for stroke prophylaxis Outpatient sleep study Follow up in our office with Dr. Torres as scheduled. Justicifation of Admission Dx: Justifications for Admission: Justification of Admission Dx: Yes CHF: Sev. Electrolyte Abnormal SONIA MACDONALD APRN Dec 26, 2020 12:45
--- NOTE | 2020-12-26 15:23 | NUR ---
SW following. Discussed with RN, pt from home with , not needing oxygen set up, renal diet. Discharge order for home with self care. RN advised no SW needs.
--- NOTE | 2020-12-26 15:40 | NUR ---
Pt discharged to home with . Discharge teaching completed and patient verbalized understanding.
--- NOTE | 2020-12-28 12:22 | RESP ---
DATE OF SERVICE: 12/24/2020 NOCTURNAL OXIMETRY The patient's mean oxygen saturations remained around 91% with the lowest of 55%. A 24% of the time, oxygen saturation remained less than 90%. IMPRESSION: Abnormal nocturnal oximetry study with evidence of nocturnal hypoxia. RECOMMENDATIONS: 1. The patient would qualify for nocturnal oxygen. 2. If the patient has clinical suspicion of sleep apnea, then proceed with polysomnogram. GANESH DR: Darrin TID: [id number]
== END 2020-12-26 15:40 | disposition home or self-care (01) | DRG 291 ==
LOC: ER 11:05 → 6 SOUTH 13:30
PROVIDERS: ADMIT Family Medicine; ATTEND Family Medicine
DX: I11.0 Hypertensive heart disease with heart failure (principal); J96.01 Acute respiratory failure with hypoxia; L02.214 Cutaneous abscess of groin; N17.9 Acute kidney failure, unspecified; Z68.42 Body mass index [BMI] 45.0-49.9, adult; I50.33 Acute on chronic diastolic (congestive) heart failure; I07.1 Rheumatic tricuspid insufficiency; I48.0 Paroxysmal atrial fibrillation; Z79.01 Long term (current) use of anticoagulants; E66.01 Morbid (severe) obesity due to excess calories; G47.33 Obstructive sleep apnea (adult) (pediatric); I72.8 Aneurysm of other specified arteries; E11.22 Type 2 diabetes mellitus with diabetic chronic kidney disease; N18.32 Chronic kidney disease, stage 3b; F41.9 Anxiety disorder, unspecified; E78.5 Hyperlipidemia, unspecified; Z88.8 Allergy status to other drugs, medicaments and biological substances
CPT/HCPCS: 36415; 71045; 76881; 78580; 80048; 80053; 80069; 81001; 82553; 82962; 83036; 83690; 83735; 83880; 84100; 84439; 84484; 85025; 85379; 93005; 94618; 94799; 96374; 99285; A9540; J1815; J1940; J2405; J2543; J7030; G0378

== ENCOUNTER → 2021-01-09 | Outpatient (CLI) | payer MEDICARE ==
[2020-12-26 11:00] VITALS: BP 148/71
[~2021-01-09] MED LIST changes: +AMOX1TAB58 PO; +AMOX875T PO; -CYAN50008 PO; +CYAN50009 PO; +DOXY100T PO; +DRON400T6 PO; +ONDA4TAB12 PO; +SULF1TAB24 PO
--- NOTE | 2021-01-10 14:06 | SLEEP ---
DATE OF STUDY: 01/09/2021 HOME SLEEP STUDY REFERRING PHYSICIAN: Dr. Oli Swartz. The patient is a 70-year-old who weighs 260 pounds with a BMI of 46.1. The patient's [place] score was not available. The patient underwent home sleep study performed by [facility]. SLEEP ARCHITECTURE: Total recording time was 550 minutes. During the night study, the patient had 35 obstructive apneas, 4 central apneas, 23 mixed apneas and 95 hypopneas. The patient's AHI was 24.6 per hour. Nocturnal oximetry study revealed an average oxygen saturation of 91% with a lowest of 82%. 54 minutes were spent with oxygen saturation less than 90%. Mean heart rate 55 beats per minute with a maximum of 93 beats per minute. IMPRESSION: 1. Moderate obstructive sleep apnea at an AHI of 24.6 per hour. 2. Nocturnal hypoxia secondary to obstructive sleep apnea and possible hypoventilation. RECOMMENDATIONS: 1. The patient would benefit from treatment of sleep apnea with CPAP. This can be done as an in-lab CPAP titration versus home auto CPAP. 2. Once the patient is optimally treated with CPAP, then follow up in 4-6 weeks to assess compliance and to document clinical improvement. 3. Weight loss is advised. 4. Avoid ELECTRICAL DESIGN ENGINEER depressants. 5. Cautioned regarding driving until symptoms of sleep apnea resolve with above recommendations. RANDAL/CECELIA DR: Darrin TID: [id number] CC: ____ ____
== END ==
LOC: RT 08:27
PROVIDERS: ATTEND Internal Medicine Critical Care Medicine
DX: G47.33 Obstructive sleep apnea (adult) (pediatric) (principal); G47.34 Idiopathic sleep related nonobstructive alveolar hypoventilation; G47.01 Insomnia due to medical condition
CPT/HCPCS: G0399

== ENCOUNTER → 2021-02-09 | Outpatient (CLI) | payer MEDICARE ==
[~2021-02-09] MED LIST changes: +ZOLPIDEM 5 MG TABLET. PO ONE
--- NOTE | 2021-02-13 10:53 | SLEEP ---
DATE OF STUDY: 02/09/2021 SLEEP STUDY ATTENDING PHYSICIAN: Dr. Anthony Swartz. The patient is 70 years old who weighs 260 pounds with a BMI of 46. The patient had a previous home sleep study and was found to have moderate CHRISTINA at an AHI of 24 per hour. The patient was referred for an in-lab CPAP titration study. During the night study, the patient spent 398 minutes in bed and slept for 305 minutes with a sleep efficiency of 77%. Sleep latency was 44 minutes with a REM latency of 210 minutes. Sleep architecture showed normal stage 1 and stage 2 sleep. Increased slow wave sleep, which was 45% of the total sleep time and reduced REM sleep which was 9% of the total sleep time. EKG monitoring revealed no sustained arrhythmias. PLMs were seen at the index of 15 per hour and 5 per hour caused EEG arousals. The patient was started on CPAP at a pressure of 5 cm water and titrated up to 7 cm water. At the final pressure, the patient slept for 91 minutes. The patient did not have supine or REM sleep. The patient's AHI was reduced to 0 per hour and oxygen saturation remained above 90%. The patient is to use medium size nasal mask. IMPRESSION: 1. Moderate sleep apnea diagnosed by previous sleep study. 2. Mild periodic limb movements. RECOMMENDATIONS: 1. CPAP at 7 cm water completely eliminated the patient's sleep apnea. It should be used on a nightly basis. 2. Follow up in 4-6 weeks to assess compliance with CPAP and to document clinical improvement. 3. Weight loss is advised. 4. Avoid GEOGRAPHY INSTRUCTOR depressants. 5. Cautioned regarding driving until symptoms of sleep apnea resolve with the use of CPAP. 6. PLMs do not need to be treated unless the patient has symptoms of restless legs during the day. YONG DR: Darrin TID: [id number] CC: ANTHONY SWARTZ MD
== END ==
LOC: RT 06:00
PROVIDERS: ATTEND Family Medicine
DX: G47.33 Obstructive sleep apnea (adult) (pediatric) (principal)
CPT/HCPCS: 95811

== ENCOUNTER 2021-05-05 21:28 | Observation (INO) | payer MEDICARE ==
[~2021-05-05] VITALS: Ht 160 cm; Wt 111.0 kg
[~2021-05-05 21:28] MED LIST changes: -ZOLPIDEM 5 MG TABLET. PO ONE
--- NOTE | 2021-05-05 22:10 | PHYS DOC ---
Past Medical History Past Medical History: A-Fib, Anxiety, CAD, GERD, High Cholesterol, Hypert ension, IBS, Renal Disease (MAHESH HONEYCUTT MANAGER OF SUSTAINABILITY) Past Surgical History: Cholecystectomy, (MAHESH HONEYCUTT MANAGER OF SUSTAINABILITY) Smoking Status: Never Smoker Alcohol Use: None ([facility] SUSTAINABILITY) General Adult EDM: Chief Complaint: WEAKNESS/GENERALIZED HPI: HPI: Patient is a 70 year old female who presents with 1 day of anxiety, tremors, shortness of breath, nausea, dizziness when standing and walking, generalized weakness and left jaw pain that has been going on for the last week. She states she did go to the dentist and they did an x-ray but stated she did had no cavities. She states she has been using Anbesol for 3 days straight. She denies any chest pain, abdominal pain, vomiting, diarrhea, fever, cough, numbness and tingling, headache, focal weakness, vision change. Patient has a history of high cholesterol, hypertension, kidney disease, trigemony neuralgia, A. fib, CAD. Her kidney doctor is . Her tool and die repairer is Dr. Torres. ([facility] MANAGER OF SUSTAINABILITY) Review of Systems: Review of Systems: Constitutional: Denies fever or +chills. [] Eyes: Denies change in visual acuity. [] HENT: Denies nasal congestion or sore throat. [] Respiratory: Denies cough or +shortness of breath. [] Cardiovascular: Denies chest pain or edema. [] GI: Denies abdominal pain, +nausea, denies vomiting, bloody stools or diarrhea. [] : Denies dysuria. [] Musculoskeletal: Denies back pain or joint pain. + Generalized weakness [] Integument: Denies rash. [] Neurologic: Denies headache, focal weakness or sensory changes. + Shaky [] Endocrine: Denies polyuria or polydipsia. [] Lymphatic: Denies swollen glands. [] Psychiatric: Denies depression or anxiety. [] ([facility] MANAGER OF SUSTAINABILITY) Heart Score: C/O Chest Pain: No HEART Score for Chest Pain: HEART Score for Chest Pain Response (Comments) Value History Slighlty/Non-Suspicious 0 ECG Nonspecific Repolarizatio 1 Age > 65 2 Risk Factors >3 Risk Factors or Hx CAD 2 Troponin < Normal Limit 0 Total 5 Risk Factors: Risk Factors: DM, Current or recent (<one month) smoker, HTN, HLP, family history of CAD, obesity. Risk Scores: Score 0 - 3: 2.5% MACE over next 6 weeks - Discharge Home Score 4 - 6: 20.3% MACE over next 6 weeks - Admit for Clinical Observation Score 7 - 10: 72.7% MACE over next 6 weeks - Early Invasive Strategies (MAHESH HONEYCUTT APRN) Allergies: Allergies: Allergies Coded Allergies Type Severity Reaction Last Updated Verified cephalexin Allergy Severe HIVES 12/23/20 Yes erythromycin base Allergy Mild "HURTS MY STOMACH REAL BAD" 11/02/19 Yes (MAHESH HONEYCUTT APRN) Physical Exam: PE: Constitutional: Well developed, well nourished, no acute distress, non-toxic appearance. [] HENT: Normocephalic, atraumatic, bilateral external ears normal, oropharynx moist, no oral exudates, nose normal. [] Eyes: PERRLA, EOMI, conjunctiva normal, no discharge. [] Neck: Normal range of motion, no tenderness, supple, no stridor. [] Cardiovascular:Heart rate irregular rhythm, no murmur [] Lungs & Thorax: Bilateral breath sounds upper clear and lower diminished to auscultation [] Abdomen: Bowel sounds normal, soft, no tenderness, no masses, no pulsatile masses. [] Skin: Warm, dry, no erythema, no rash. [] Back: No tenderness, no CVA tenderness. [] Extremities: No tenderness, no cyanosis, no clubbing, ROM intact, or bilateral lower 1+ edema. [] Neurologic: Alert and oriented X 3, normal motor function, normal sensory function, no focal deficits noted. [] Psychologic: Affect normal, judgement normal, mood normal. [] (MAHESH HONEYCUTT APRN) EKG: EK by Dr. Tee as sinus rhythm and prolonged QT with atrial premature complexes (MAHESH HONEYCUTT APRN) Radiology/Procedures: Radiology/Procedures: [] Impression: [facility] [address] [place], [place] [id number] IMAGING REPORT Signed PATIENT: MARICHUY SCHWARTZ ACCOUNT: [id number] : 1950 LOCATION: ER AGE: 70 SEX: F EXAM STATUS: REG ER ORD. PHYSICIAN: MAHESH HONEYCUTT APRN REASON: DIZZINESS PROCEDURE: CT HEAD WO CONTRAST Exam: CT head INDICATION: Dizziness TECHNIQUE: Sequential axial images through the head were obtained without the administration of IV contrast. Exposure: One or more of the following in the visualized dose reduction techniques were utilized for this examination: 1. Automated exposure control 2. Adjustment of the MA and/or KV according to patient size 3. Use of iterative of reconstructive technique Comparisons: 01/28/2020 FINDINGS: No focal parenchymal lesion or hemorrhage is identified. There is no midline shift or sulcal effacement. Mild patchy hypodensity in the periventricular white matter which appears similar compared to the prior study No acute vascular territory infarction is identified. Spann-white distinction is preserved. The ventricular system is within normal limits without compression hydrocephalus. The basal cisterns are well maintained. The visualized portions of the paranasal sinuses and mastoid air cells are well- pneumatized. No acute fractures. IMPRESSION: No acute intracranial abnormality. Electronically signed by: Stan Zuniga MD (05/05/2021 10:24 PM) [facility] DICTATED and SIGNED BY: STAN ZUNIGA MD DATE: 05/05/21 [id number] [facility] [address] [place], [place] [id number] IMAGING REPORT Signed PATIENT: MARICHUY SCHWARTZ ACCOUNT: [id number] : 1950 LOCATION: ER AGE: 70 SEX: F EXAM STATUS: REG ER ORD. PHYSICIAN: MAHESH HONEYCUTT APRN REASON: SOA PROCEDURE: PORTABLE CHEST 1V EXAMINATION: Chest radiograph. VIEWS: Single view COMPARISON: 12/23/2020 INDICATION:70 years, Female, shortness of breath. FINDINGS: Stable cardiomediastinal silhouette. Calcified granuloma in the left lung base. Right basilar subsegmental versus scarring. No focal consolidation. No pleural effusion or pneumothorax. No acute osseous process. IMPRESSION: No acute cardiopulmonary process. Electronically signed by: Sammy Felix MD (05/05/2021 10:29 PM) [facility] DICTATED and SIGNED BY: SAMMY FELIX MD DATE: 05/05/21 [id number] (MAHESH HONEYCUTT APRN) Course & Med Decision Making: Course & Med Decision Making Pertinent Labs and Imaging studies reviewed. (See chart for details) COVID-19 CRITERIA: The patient was evaluated during the global COVID-19 pandemic, and that diagnosis was suspected/considered upon their initial presentation. Their evaluation, treatment and testing was consistent with current guidelines for patients who present with complaints or symptoms that may be related to COVID-19. See HPI. Alert and oriented x4. Ambulatory steady gait. Speaks in full clear sentences. Skin pink warm and dry. Upper lung lobes are clear and lower lung lobes are diminished. Afebrile. Chest x-ray shows no acute findings. CT head shows no acute findings. Patient is stable. She is admitted for chest pain rule out due to her history. Heart score is 5. 2307: Dr Tee to follow up on blood work and covid test. [] (MAHESH HONEYCUTT APRN) Dragon Disclaimer: Dragshi Disclaimer: This electronic medical record was generated, in whole or in part, using a voice recognition dictation system. (MAHESH HONEYCUTT APRN) COVID-19 Patient Risks: Age 65 or older: Yes Sign of co-morbidity: Yes Exp to person + for COVID: No Exp to PUI: No Travel from affected area: No Lower respiratory symptoms: Yes Fever: No Other: Yes (fatigue) (MAHESH HONEYCUTT APRN) PPE Use: Full PPE with N95 mask or PAPR: Yes (MAHESH HONEYCUTT APRN) Departure Departure Impression: Primary Impression: Dyspnea Qualified Codes: R06.02 - Shortness of breath Additional Impression: Jaw pain Disposition: ADMITTED INPATIENT Admitting Physician: SOLEDAD (MAHESH HONEYCUTT APRN) Condition: STABLE Referrals: ANTHONY NICHOLSON MD (PCP) Attending Signature Attending Signature I have reviewed the PA/FEDERAL AID COORDINATOR's note and plan of care. I was available for consultation as needed during the patient's visit in the emergency department. I agree with the clinical impression, plan, and disposition. Troponin WNL. Rapid COVID negative. Labs stable (PRESLEY TEE DO) MAHESH HONEYCUTT MANAGER OF SUSTAINABILITY May 05, 2021 22:10 PRESLEY TEE DO May 06, 2021 01:03
--- NOTE | 2021-05-05 22:26 | RAD ---
Exam: CT head INDICATION: Dizziness TECHNIQUE: Sequential axial images through the head were obtained without the administration of IV co ntrast. Exposure: One or more of the following in the visualized dose reduction techniques were utilized for this examination: 1. Automated exposure control 2. Adjustment of the MA and/or KV according to patient size 3. Use of iterative of reconstructive technique Comparisons: 01/28/2020 FINDINGS: No focal parenchymal lesion or hemorrhage is identified. There is no midline shift or sulcal effaceme nt. Mild patchy hypodensity in the periventricular white matter which appears similar compared to the christine or study No acute vascular territory infarction is identified. Spann-white distinction is preserved. The ventricular system is within normal limits without compression hydrocephalus. The basal cisterns are well maintained. The visualized portions of the paranasal sinuses and mastoid air cells are well-pneumatized. No acute fractures. IMPRESSION: No acute intracranial abnormality. Electronically signed by: Stan Marc MD (05/05/2021 10:24 PM) [facility]
--- NOTE | 2021-05-05 22:32 | RAD ---
EXAMINATION: Chest radiograph. VIEWS: Single view COMPARISON: 12/23/2020 INDICATION:70 years, Female, shortness of breath. FINDINGS: Stable cardiomediastinal silhouette. Calcified granuloma in the left lung base. Right basilar subsegm ental versus scarring. No focal consolidation. No pleural effusion or pneumothorax. No acute osseous process. IMPRESSION: No acute cardiopulmonary process. Electronically signed by: Katie Felix MD (05/05/2021 10:29 PM) [facility]
[2021-05-05 22:54] LABS: CREATININE 1.4 mg/dL (0.6-1.0); GFR 37.4; POTASSIUM 3.6 mmol/L (3.5-5.1)
[2021-05-05 23:01] LABS: ALBUMIN 3.4 g/dL (3.4-5.0); ALBUMIN/GLOBULIN RATIO 0.9 (1.0-1.7); TOTAL BILIRUBIN 0.3 mg/dL (0.2-1.0); TOTAL PROTEIN 7.4 g/dL (6.4-8.2)
[2021-05-05 23:39] LABS: HEMATOCRIT 38.3 % (36.0-47.0); HEMOGLOBIN 13.1 g/dL (12.0-15.5); MEAN CORPUSCULAR HEMOGLOBIN 30 pg (25-35); MEAN CORPUSCULAR HGB CONC 34 g/dL (31-37); MEAN CORPUSCULAR VOLUME 88 fL (79-100); RED BLOOD COUNT 4.38 x10^6/uL (3.50-5.40); RED CELL DISTRIBUTION WIDTH 13.6 % (11.5-14.5); WHITE BLOOD COUNT 8.4 x10^3/uL (4.0-11.0)
[2021-05-05 23:40] LABS: BASO # 0.1 x10^3/uL (0.0-0.2); BASO % 1 % (0-3); EOS # 0.1 x10^3/uL (0.0-0.7); EOS % 1 % (0-3); LYMPH # 1.4 x10^3/uL (1.0-4.8); LYMPH % 16 % (24-48); MONO # 0.7 x10^3/uL (0.0-1.1); MONO % 8 % (0-9); NEUT # 6.2 x10^3/uL (1.8-7.7); NEUT % 74 % (31-73); PLATELET COUNT 211 x10^3/uL (140-400)
[2021-05-05] MEDS ORDERED: fentaNYL PF VIAL 100 MCG/2 ML VIAL IV ONE (23:45)
[2021-05-05 23:55] LABS: BILIRUBIN,URINE NEGATIVE (NEG); CLARITY,URINE CLEAR; COLOR,URINE YELLOW; NITRITE,URINE NEGATIVE (NEG); PH,URINE 5.5 (<5.0-8.0); PROTEIN,URINE NEGATIVE (NEG-TRACE); UROBILINOGEN,URINE 0.2 mg/dL (0.2 mg/dL)
[2021-05-06 00:01] LABS: BACTERIA,URINE 0 /HPF (0-FEW)
[2021-05-06 02:40] VITALS: BP 177/74
[2021-05-06] MEDS: ACETAMINOPHEN 325 MG TABLET. PO PRN ×2 (02:56→08:57)
[2021-05-06] MEDS ORDERED: LACT1TAB24 PO (03:12)
[2021-05-06] MEDS ORDERED: INUL2TAB4 PO (03:13)
[2021-05-06] MEDS ORDERED: FOLI200T13 PO (03:14)
--- NOTE | 2021-05-06 03:18 | NUR ---
Admit from ER to [address] [place] [id number] 68 via [facility]. A/O x 4. Stood from [facility] in [place] and ambulated to bed in room with standby assist. Steady Gait. Complaint is left sided tooth pain. Explains tooth pain is in the same spot she had dental work done a short time ago. Points to left side of top lip. Left side of face. Also c/o of back of neck hurting. Request Tylenol. Fentanyl was given in ER. Orientated to room and call light. Reviewed POC to include troponin lab draws and Tele monitoring. Verbalized understanding. Resting in bed. Call light at hand.
[2021-05-06 07:00] VITALS: BP 131/68
--- NOTE | 2021-05-06 08:14 | PDOC1 ---
History and Physical Date of Admission Date of Admission DATE: 05/06/21 TIME: 08:11 Source Source: Chart review, Patient History of Present Illness History of Present Illness Ms. Yusuf is a 70 year old female who presents with 1 day of anxiety, tremors, shortness of breath, nausea, generalized weakness. She had left facial pain, under her left eye, has priro tooth and face surgery at the [facility] a few weeks ago, and has long history of trigeminal neuralgia and sometimes forgets to take her gabapentin the pain had worsened over days, and she was taking a lot of anubusol. pain was 10/10, better today, she reports she was very anxious yesterday due to pain She states she did go to the dentist and they did an x-ray but stated she did had no cavities. She denies any chest pain, Patient has a history of high cholesterol, hypertension, CKD 3 A. fib, CAD. CVC doctor is Dr. Torres. she has been trying to lose weight for health, is walking more, has lost 20 lbs, she got tearful about wanting to live longer for the [place] Past Medical History Cardiovascular: AFIB, HTN Pulmonary: Other GI: GERD Psych: Anxiety Musculoskeletal: Osteoarthritis Infectious disease: No pertinent hx Renal/: Chronic renal insuff Endocrine: Diabetes Past Surgical History Past Surgical History: Hernia Repair Family History Family History: High Cholestrol, Hypertension Social History ALCOHOL: none Drugs: None Current Problem List Problem List Problems Medical Problems: (1) Dyspnea Status: Acute (2) Jaw pain Status: Acute Current Medications Current Medications Current Medications Acetaminophen (Tylenol) 650 mg PRN Q4HRS PRN PO FEVER > 100.3'F Last admi nistered on 05/06/21at 02:56; Start 05/05/21 at 23:00; Stop 05/06/21 at 22:59 Fentanyl Citrate (Fentanyl 2ml Vial) 50 mcg 1X ONCE IV Last administered on 05/05/21at 23:55; Start 05/05/21 at 23:45; Stop 05/05/21 at 23:48; Status DC Acetaminophen (Tylenol) 500 mg Q8HRS PRN PO MILD PAIN / TEMP > 100.3'F; Start 05/06/21 at 08:15; Status UNV Apixaban (Eliquis) 5 mg BID PO ; Start 05/06/21 at 09:00; Status UNV Dronedarone (Multaq) 400 mg BID PO ; Start 05/06/21 at 09:00; Status UNV Gabapentin (Neurontin) 300 mg TID PO ; Start 05/06/21 at 09:00; Status UNV Lisinopril (Prinivil) 10 mg HS PO ; Start 05/06/21 at 21:00; Status UNV Metoprolol Tartrate (Lopressor) 25 mg DAILY PO ; Start 05/06/21 at 09:00; Status UNV Pantoprazole Sodium (Protonix) 40 mg BID PO ; Start 05/06/21 at 09:00; Status UNV Tramadol HCl (Ultram) 50 mg PRN Q8HRS PRN PO PAIN; Start 05/06/21 at 08:15; Status UNV Active Scripts Active Reported Women's Multivitamin Gummies (Folic Acid/Multivit-Minerals) 200 Mcg Tab.chew 400 Mcg PO DAILY Fiber Gummies (Inulin) 2 Gm Tab.chew 4 Gm PO DAILY Probiotic Acidophilus (Lactobacillus Acidophilus) 1 Each Tablet 1 Each PO DAILY Multaq (Dronedarone Hcl) 400 Mg Tablet 1 Tab PO BID Eliquis (Apixaban) 5 Mg Tablet 5 Mg PO BID Gabapentin (Gabapentin) 300 Mg Capsule 300 Mg PO TID Lisinopril 5 Mg Tablet 10 Mg PO HS Pantoprazole Sodium (Pantoprazole Sodium) 40 Mg Tablet. 40 Mg PO BID Metoprolol Tartrate 50 Mg Tablet 25 Mg PO DAILY Acetaminophen 500 Mg Tablet 500 Mg PO PRN Q4-6HRS PRN Tramadol Hcl 50 Mg Tablet 50 Mg PO PRN Q8HRS PRN [occuvite] 1 Tab PO DAILY Vitamin D3 (Cholecalciferol (Vitamin D3)) 5,000 Unit Tab.rapdis 5,000 Unit PO DAILY Fish Oil 1,200 mg Softgel ([place]-3/Dha/Epa/Fish Oil) 1 Each Capsule. 1 Each PO DAILY Allergies Allergies: Coded Allergies: cephalexin (Verified Allergy, Intermediate, HIVES, 05/05/21) erythromycin base (Verified Adverse Reaction, Mild, "HURTS MY STOMACH REAL BAD", 05/05/21) ROS General: No: Chills, Night Sweats, Fatigue, Malaise, Appetite, Other PSYCHOLOGICAL ROS: No: Anxiety, Behavioral Disorder, Concentration difficultie, Decreased libido, Depression, Disorientation, Hallucinations, Hostility, Irritablity, Memory difficulties, Mood Swings, Obsessive thoughts, Physical abuse, Sexual abuse, Sleep disturbances, Suicidal ideation, Other Eyes: No Blurry vision, No Decreased vision, No Double vision, No Dry eyes, No Excessive tearing, No Eye Pain, No Itchy Eyes, No Loss of vision, No Photophobia, No Scotomata, No Uses contacts, No Uses glasses, No Other HEENT: No: Heacaches, Visual Changes, Hearing change, Nasal congestion, Nasal discharge, Oral lesions, Sinus pain, Sore Throat, Epistaxis, Sneezing, Snoring, Tinnitus, Vertigo, Vocal changes, Other Respiratory: No: Cough, Hemoptysis, Orthopnea, Pleuritic Pain, Shortness of breath, SOB with excertion, Sputum Changes, Stridor, Tachypnea, Wheezing, Other Cardiovascular: No Chest Pain, No Palpitations, No Orthopnea, No Paroxysmal Noc. Dyspnea, No Edema, No Lt Headedness, No Other Gastrointestinal: Yes Nausea; No Vomiting, No Abdominal Pain, No Diarrhea, No Constipation, No Melena, No Hematochezia, No Other Genitourinary: No Dysuria, No Frequency, No Incontinence, No Hematuria, No Retention, No Discharge, No Urgency, No Pain, No Flank Pain, No Other, No , No , No , No , No , No , No Musculoskeletal: Yes Joint Stiffness Neurological: No Behavorial Changes, No Bowel/Bladder ControlChng, No Confusion, No Dizziness, No Gait Disturbance, No Headaches, No Impaired Coord/balance, No Memory Loss, No Numbness/Tingling, No Seizures, No Speech Problems, No Tremors, No Visual Changes, No Weakness, No Other Skin: Yes Dry Skin; No Eczema, No Hair Changes, No Lumps, No Mole Changes, No Mottling, No Nail Changes, No Pruritus, No Rash, No Skin Lesion Changes, No Other, No Acne Physical Exam General: Alert, Cooperative, No acute distress HEENT: PERRLA Lungs: Clear to auscultation Extremities: No clubbing, Normal pulses Skin: No breakdown Neuro: Normal tone, Cranial nerves 3-12 NL Psych/Mental Status: Mood NL Vitals Vitals Vital Signs Date Time Temp Pulse Resp B/P (MAP) Pulse Ox O2 Delivery O2 Flow Rate FiO2 05/06/21 03:25 Room Air 05/06/21 02:40 97.3 53 18 177/74 (108) 99 97.3 Labs Labs Laboratory Tests Test 05/05/21 22:35 05/05/21 22:45 05/05/21 23:40 White Blood Count 8.4 x10^3/uL (4.0-11.0) Red Blood Count 4.38 x10^6/uL (3.50-5.40) Hemoglobin 13.1 g/dL (12.0-15.5) Hematocrit 38.3 % (36.0-47.0) Mean Corpuscular Volume 88 fL (79-100) Mean Corpuscular Hemoglobin 30 pg (25-35) Mean Corpuscular Hemoglobin Concent 34 g/dL (31-37) Red Cell Distribution Width 13.6 % (11.5-14.5) Platelet Count 211 x10^3/uL (140-400) Neutrophils (%) (Auto) 74 % (31-73) Lymphocytes (%) (Auto) 16 % (24-48) Monocytes (%) (Auto) 8 % (0-9) Eosinophils (%) (Auto) 1 % (0-3) Basophils (%) (Auto) 1 % (0-3) Neutrophils # (Auto) 6.2 x10^3/uL (1.8-7.7) Lymphocytes # (Auto) 1.4 x10^3/uL (1.0-4.8) Monocytes # (Auto) 0.7 x10^3/uL (0.0-1.1) Eosinophils # (Auto) 0.1 x10^3/uL (0.0-0.7) Basophils # (Auto) 0.1 x10^3/uL (0.0-0.2) Sodium Level 139 mmol/L (136-145) Potassium Level 3.6 mmol/L (3.5-5.1) Chloride Level 103 mmol/L (98-107) Carbon Dioxide Level 25 mmol/L (21-32) Anion Gap 11 (6-14) Blood Urea Nitrogen 19 mg/dL (7-20) Creatinine 1.4 mg/dL (0.6-1.0) Estimated GFR (Cockcroft-Gault) 37.4 BUN/Creatinine Ratio 14 (6-20) Glucose Level 131 mg/dL (70-99) Calcium Level 9.0 mg/dL (8.5-10.1) Total Bilirubin 0.3 mg/dL (0.2-1.0) Aspartate Amino Transf (AST/SGOT) 28 U/L (15-37) Alanine Aminotransferase (ALT/SGPT) 35 U/L (14-59) Alkaline Phosphatase 82 U/L (46-116) Troponin I Quantitative < 0.017 ng/mL (0.000-0.055) EU-Pxr-V-Type Natriuretic Peptide 551 pg/mL (0-124) Total Protein 7.4 g/dL (6.4-8.2) Albumin 3.4 g/dL (3.4-5.0) Albumin/Globulin Ratio 0.9 (1.0-1.7) SARS-CoV-2 Antigen (Rapid) Negative (NEGATIVE) Urine Collection Type Unknown Urine Color Yellow Urine Clarity Clear Urine pH 5.5 (<5.0-8.0) Urine Specific [place] 1.025 (1.000-1.030) Urine Protein Negative mg/dL (NEG-TRACE) Urine Glucose (UA) Negative mg/dL (NEG) Urine Ketones (Stick) 40 mg/dL (NEG) Urine Blood Negative (NEG) Urine Nitrite Negative (NEG) Urine Bilirubin Negative (NEG) Urine Urobilinogen Dipstick 0.2 mg/dL (0.2 mg/dL) Urine Leukocyte Esterase Negative (NEG) Urine RBC 1-2 /HPF (0-2) Urine WBC 1-4 /HPF (0-4) Urine Squamous Epithelial Cells Few /LPF Urine Bacteria 0 /HPF (0-FEW) Urine Mucus Mod /LPF Laboratory Tests Test 05/05/21 22:35 05/05/21 22:45 05/05/21 23:40 White Blood Count 8.4 x10^3/uL (4.0-11.0) Red Blood Count 4.38 x10^6/uL (3.50-5.40) Hemoglobin 13.1 g/dL (12.0-15.5) Hematocrit 38.3 % (36.0-47.0) Mean Corpuscular Volume 88 fL (79-100) Mean Corpuscular Hemoglobin 30 pg (25-35) Mean Corpuscular Hemoglobin Concent 34 g/dL (31-37) Red Cell Distribution Width 13.6 % (11.5-14.5) Platelet Count 211 x10^3/uL (140-400) Neutrophils (%) (Auto) 74 % (31-73) Lymphocytes (%) (Auto) 16 % (24-48) Monocytes (%) (Auto) 8 % (0-9) Eosinophils (%) (Auto) 1 % (0-3) Basophils (%) (Auto) 1 % (0-3) Neutrophils # (Auto) 6.2 x10^3/uL (1.8-7.7) Lymphocytes # (Auto) 1.4 x10^3/uL (1.0-4.8) Monocytes # (Auto) 0.7 x10^3/uL (0.0-1.1) Eosinophils # (Auto) 0.1 x10^3/uL (0.0-0.7) Basophils # (Auto) 0.1 x10^3/uL (0.0-0.2) Sodium Level 139 mmol/L (136-145) Potassium Level 3.6 mmol/L (3.5-5.1) Chloride Level 103 mmol/L (98-107) Carbon Dioxide Level 25 mmol/L (21-32) Anion Gap 11 (6-14) Blood Urea Nitrogen 19 mg/dL (7-20) Creatinine 1.4 mg/dL (0.6-1.0) Estimated GFR (Cockcroft-Gault) 37.4 BUN/Creatinine Ratio 14 (6-20) Glucose Level 131 mg/dL (70-99) Calcium Level 9.0 mg/dL (8.5-10.1) Total Bilirubin 0.3 mg/dL (0.2-1.0) Aspartate Amino Transf (AST/SGOT) 28 U/L (15-37) Alanine Aminotransferase (ALT/SGPT) 35 U/L (14-59) Alkaline Phosphatase 82 U/L (46-116) Troponin I Quantitative < 0.017 ng/mL (0.000-0.055) FO-Knl-T-Type Natriuretic Peptide 551 pg/mL (0-124) Total Protein 7.4 g/dL (6.4-8.2) Albumin 3.4 g/dL (3.4-5.0) Albumin/Globulin Ratio 0.9 (1.0-1.7) SARS-CoV-2 Antigen (Rapid) Negative (NEGATIVE) Urine Collection Type Unknown Urine Color Yellow Urine Clarity Clear Urine pH 5.5 (<5.0-8.0) Urine Specific [place] 1.025 (1.000-1.030) Urine Protein Negative mg/dL (NEG-TRACE) Urine Glucose (UA) Negative mg/dL (NEG) Urine Ketones (Stick) 40 mg/dL (NEG) Urine Blood Negative (NEG) Urine Nitrite Negative (NEG) Urine Bilirubin Negative (NEG) Urine Urobilinogen Dipstick 0.2 mg/dL (0.2 mg/dL) Urine Leukocyte Esterase Negative (NEG) Urine RBC 1-2 /HPF (0-2) Urine WBC 1-4 /HPF (0-4) Urine Squamous Epithelial Cells Few /LPF Urine Bacteria 0 /HPF (0-FEW) Urine Mucus Mod /LPF VTE Prophylaxis Ordered VTE Prophylaxis Devices: Yes VTE Pharmacological Prophylaxi: Yes Assessment/Plan Assessment/Plan facial pain more than jaw pain, CVC, r/o angina done, no cardiac, gets yearly cardiac eval, scheduled for next month trigeminal neuralgia, acute on chronic, gabapentin, tylenol, PRN ultram obese, BMI 43 CAD, Afib CKD 3, she does not take ibuprofen due to this Justifications for Admission Other Justification TIFFANIE DUTTA MD May 06, 2021 08:14
[2021-05-06] MEDS ORDERED: traMADol 50 MG TABLET PO PRN (08:15)
[2021-05-06] MEDS ORDERED: METOPROLOL TART IMMED RELEASE 25 MG TABLET. PO ONE (08:15)
[2021-05-06] MEDS ORDERED: ACETAMINOPHEN 500 MG TABLET PO PRN (08:15)
[2021-05-06 08:57] VITALS: BP 131/68
[2021-05-06] MEDS ORDERED: GABAPENTIN 300 MG CAPSULE. PO SCH (09:00)
[2021-05-06] MEDS ORDERED: PANTOPRAZOLE 40 MG TABLET.DR. PO SCH (09:00)
[2021-05-06] MEDS ORDERED: DRONEDARONE HCL 400 MG TABLET PO SCH (09:00)
[2021-05-06] MEDS ORDERED: METOPROLOL TART IMMED RELEASE 50 MG TABLET. PO SCH (09:00)
[2021-05-06] MEDS ORDERED: APIXABAN 5 MG TABLET. PO SCH (09:00)
[2021-05-06 10:43] LABS: BASO % 1 % (0-3); EOS # 0.1 x10^3/uL (0.0-0.7); EOS % 1 % (0-3); HEMATOCRIT 37.9 % (36.0-47.0); HEMOGLOBIN 12.9 g/dL (12.0-15.5); LYMPH # 1.1 x10^3/uL (1.0-4.8); LYMPH % 16 % (24-48); MEAN CORPUSCULAR HEMOGLOBIN 30 pg (25-35); MEAN CORPUSCULAR HGB CONC 34 g/dL (31-37); MEAN CORPUSCULAR VOLUME 88 fL (79-100); MONO # 0.4 x10^3/uL (0.0-1.1); MONO % 6 % (0-9); NEUT # 5.2 x10^3/uL (1.8-7.7); NEUT % 76 % (31-73); PLATELET COUNT 223 x10^3/uL (140-400); RED BLOOD COUNT 4.29 x10^6/uL (3.50-5.40); RED CELL DISTRIBUTION WIDTH 13.6 % (11.5-14.5); WHITE BLOOD COUNT 6.8 x10^3/uL (4.0-11.0)
[2021-05-06 11:02] LABS: ALBUMIN 3.3 g/dL (3.4-5.0); ALBUMIN/GLOBULIN RATIO 0.8 (1.0-1.7); CALCIUM 8.8 mg/dL (8.5-10.1); CREATININE 1.5 mg/dL (0.6-1.0); GFR 34.5; POTASSIUM 3.5 mmol/L (3.5-5.1); TOTAL BILIRUBIN 0.3 mg/dL (0.2-1.0); TOTAL PROTEIN 7.2 g/dL (6.4-8.2)
--- NOTE | 2021-05-06 11:04 | NUR ---
Discharge Note: HEMALATHA SCHWARTZ [facility] Discharge instructions and discharge home medications reviewed with Patient and a copy given. All questions have been answered and understanding verbalized. The following instructions and handouts were given: Chest pain Discontinued lines and drains: IV discontinued intact. Patient discharged to Home via wheelchair and personal vehicle.
--- NOTE | 2021-05-06 11:13 | EKG ---
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
--- NOTE | 2021-05-06 12:42 | PDOC2 ---
CONSULT Date of Consult Date of Consult DATE: 05/06/21 TIME: 12:42 Reason for Consult Reason for Consult: Atrial fibrillation Referring Physician Referring Physician: Dr. Capone Identification/Chief Complaint Chief Complaint Jaw pain and tremors Source Source: Chart review, Patient History of Present Illness Reason for Visit: 70-year-old female with history of paroxysmal atrial fibrillation s/p cardioversion presented complaining of anxiety, tremors and generalized weakness. She also complained of left jaw pain and was evaluated by dentist and told that she does not have any cavities. She thinks it could be secondary to her known history of trigeminal neuralgia. She denied any chest pain, orthopnea/PND, palpitations or syncope. Past Medical History Cardiovascular: AFIB, HTN Pulmonary: Other GI: GERD Psych: Anxiety Musculoskeletal: Osteoarthritis Infectious disease: No pertinent hx Renal/: Chronic renal insuff Endocrine: Diabetes Past Surgical History Past Surgical History: Hernia Repair Family History Family History: High Cholestrol, Hypertension Social History ALCOHOL: none Drugs: None Lives: with Family Current Problem List Problem List Problems Medical Problems: (1) Dyspnea Status: Acute (2) Jaw pain Status: Acute Current Medications Current Medications Current Medications Acetaminophen (Tylenol) 650 mg PRN Q4HRS PRN PO FEVER > 100.3'F Last administered on 05/06/21at 08:57; Start 05/05/21 at 23:00; Stop 05/06/21 at 11:13; Status DC Fentanyl Citrate (Fentanyl 2ml Vial) 50 mcg 1X ONCE IV Last administered on 05/05/21at 23:55; Start 05/05/21 at 23:45; Stop 05/05/21 at 23:48; Status DC Acetaminophen (Tylenol) 500 mg Q8HRS PRN PO MILD PAIN / TEMP > 100.3'F; Start 05/06/21 at 08:15; Stop 05/06/21 at 11:13; Status DC Apixaban (Eliquis) 5 mg BID PO Last administered on 05/06/21at 08:57; Start 05/06/21 at 09:00; Stop 05/06/21 at 11:13; Status DC Dronedarone (Multaq) 400 mg BID PO Last administered on 05/06/21at 08:57; Start 05/06/21 at 09:00; Stop 05/06/21 at 11:13; Status DC Gabapentin (Neurontin) 300 mg TID PO Last administered on 05/06/21at 08:58; Start 05/06/21 at 09:00; Stop 05/06/21 at 11:13; Status DC Lisinopril (Prinivil) 10 mg HS PO ; Start 05/06/21 at 21:00; Stop 05/06/21 at 11:13; Status DC Metoprolol Tartrate (Lopressor) 25 mg DAILY PO ; Start 05/06/21 at 09:00; Stop 05/06/21 at 11:13; Status DC Pantoprazole Sodium (Protonix) 40 mg BIDAC PO Last administered on 05/06/21at 08:57; Start 05/06/21 at 09:00; Stop 05/06/21 at 11:13; Status DC Tramadol HCl (Ultram) 50 mg PRN Q8HRS PRN PO MODERATE PAIN; Start 05/06/21 at 08:15; Stop 05/06/21 at 11:13; Status DC Metoprolol Tartrate (Lopressor) 25 mg 1X ONCE PO ; Start 05/06/21 at 08:15; Stop 05/06/21 at 08:16; Status UNV Active Scripts Active Reported Women's Multivitamin Gummies (Folic Acid/Multivit-Minerals) 200 Mcg Tab.chew 400 Mcg PO DAILY Fiber Gummies (Inulin) 2 Gm Tab.chew 4 Gm PO DAILY Probiotic Acidophilus (Lactobacillus Acidophilus) 1 Each Tablet 1 Each PO DAILY Multaq (Dronedarone Hcl) 400 Mg Tablet 1 Tab PO BID Eliquis (Apixaban) 5 Mg Tablet 5 Mg PO BID Gabapentin (Gabapentin) 300 Mg Capsule 300 Mg PO TID Lisinopril 5 Mg Tablet 10 Mg PO HS Pantoprazole Sodium (Pantoprazole Sodium) 40 Mg Tablet.dr 40 Mg PO BID Metoprolol Tartrate 50 Mg Tablet 25 Mg PO DAILY Acetaminophen 500 Mg Tablet 500 Mg PO PRN Q4-6HRS PRN Tramadol Hcl 50 Mg Tablet 50 Mg PO PRN Q8HRS PRN [occuvite] 1 Tab PO DAILY Vitamin D3 (Cholecalciferol (Vitamin D3)) 5,000 Unit Tab.rapdis 5,000 Unit PO DAILY Fish Oil 1,200 mg Softgel ([place]-3/Dha/Epa/Fish Oil) 1 Each Capsule.dr 1 Each PO DAILY Allergies Allergies: Coded Allergies: cephalexin (Verified Allergy, Intermediate, HIVES, 05/05/21) erythromycin base (Verified Adverse Reaction, Mild, "HURTS MY STOMACH REAL BAD", 05/05/21) ROS PSYCHOLOGICAL ROS: No: Hallucinations Eyes: No Loss of vision HEENT: No: Epistaxis Respiratory: No: Hemoptysis, Shortness of breath Cardiovascular: No Chest Pain Genitourinary: No Hematuria Neurological: No Seizures Physical Exam General: Alert, Oriented X3 HEENT: Atraumatic Lungs: Clear to auscultation Heart: Regular rate Abdomen: Soft Extremities: No edema Psych/Mental Status: Mood NL Vitals VITALS Vital Signs Date Time Temp Pulse Resp B/P (MAP) Pulse Ox O2 Delivery O2 Flow Rate FiO2 05/06/21 08:57 56 131/68 05/06/21 07:45 Room Air 05/06/21 07:00 98.3 16 97 98.3 Labs Labs Laboratory Tests Test 05/05/21 22:35 05/05/21 22:45 05/05/21 23:40 05/06/21 09:41 White Blood Count 8.4 x10^3/uL (4.0-11.0) 6.8 x10^3/uL (4.0-11.0) Red Blood Count 4.38 x10^6/uL (3.50-5.40) 4.29 x10^6/uL (3.50-5.40) Hemoglobin 13.1 g/dL (12.0-15.5) 12.9 g/dL (12.0-15.5) Hematocrit 38.3 % (36.0-47.0) 37.9 % (36.0-47.0) Mean Corpuscular Volume 88 fL (79-100) 88 fL (79-100) Mean Corpuscular Hemoglobin 30 pg (25-35) 30 pg (25-35) Mean Corpuscular Hemoglobin Concent 34 g/dL (31-37) 34 g/dL (31-37) Red Cell Distribution Width 13.6 % (11.5-14.5) 13.6 % (11.5-14.5) Platelet Count 211 x10^3/uL (140-400) 223 x10^3/uL (140-400) Neutrophils (%) (Auto) 74 % (31-73) 76 % (31-73) Lymphocytes (%) (Auto) 16 % (24-48) 16 % (24-48) Monocytes (%) (Auto) 8 % (0-9) 6 % (0-9) Eosinophils (%) (Auto) 1 % (0-3) 1 % (0-3) Basophils (%) (Auto) 1 % (0-3) 1 % (0-3) Neutrophils # (Auto) 6.2 x10^3/uL (1.8-7.7) 5.2 x10^3/uL (1.8-7.7) Lymphocytes # (Auto) 1.4 x10^3/uL (1.0-4.8) 1.1 x10^3/uL (1.0-4.8) Monocytes # (Auto) 0.7 x10^3/uL (0.0-1.1) 0.4 x10^3/uL (0.0-1.1) Eosinophils # (Auto) 0.1 x10^3/uL (0.0-0.7) 0.1 x10^3/uL (0.0-0.7) Basophils # (Auto) 0.1 x10^3/uL (0.0-0.2) 0.0 x10^3/uL (0.0-0.2) Sodium Level 139 mmol/L (136-145) 140 mmol/L (136-145) Potassium Level 3.6 mmol/L (3.5-5.1) 3.5 mmol/L (3.5-5.1) Chloride Level 103 mmol/L (98-107) 104 mmol/L (98-107) Carbon Dioxide Level 25 mmol/L (21-32) 26 mmol/L (21-32) Anion Gap 11 (6-14) 10 (6-14) Blood Urea Nitrogen 19 mg/dL (7-20) 15 mg/dL (7-20) Creatinine 1.4 mg/dL (0.6-1.0) 1.5 mg/dL (0.6-1.0) Estimated GFR (Cockcroft-Gault) 37.4 34.5 BUN/Creatinine Ratio 14 (6-20) 10 (6-20) Glucose Level 131 mg/dL (70-99) 148 mg/dL (70-99) Calcium Level 9.0 mg/dL (8.5-10.1) 8.8 mg/dL (8.5-10.1) Total Bilirubin 0.3 mg/dL (0.2-1.0) 0.3 mg/dL (0.2-1.0) Aspartate Amino Transf (AST/SGOT) 28 U/L (15-37) 12 U/L (15-37) Alanine Aminotransferase (ALT/SGPT) 35 U/L (14-59) 41 U/L (14-59) Alkaline Phosphatase 82 U/L (46-116) 77 U/L (46-116) Troponin I Quantitative < 0.017 ng/mL (0.000-0.055) < 0.017 ng/mL (0.000-0.055) MO-Waq-C-Type Natriuretic Peptide 551 pg/mL (0-124) Total Protein 7.4 g/dL (6.4-8.2) 7.2 g/dL (6.4-8.2) Albumin 3.4 g/dL (3.4-5.0) 3.3 g/dL (3.4-5.0) Albumin/Globulin Ratio 0.9 (1.0-1.7) 0.8 (1.0-1.7) SARS-CoV-2 Antigen (Rapid) Negative (NEGATIVE) Urine Collection Type Unknown Urine Color Yellow Urine Clarity Clear Urine pH 5.5 (<5.0-8.0) Urine Specific [place] 1.025 (1.000-1.030) Urine Protein Negative mg/dL (NEG-TRACE) Urine Glucose (UA) Negative mg/dL (NEG) Urine Ketones (Stick) 40 mg/dL (NEG) Urine Blood Negative (NEG) Urine Nitrite Negative (NEG) Urine Bilirubin Negative (NEG) Urine Urobilinogen Dipstick 0.2 mg/dL (0.2 mg/dL) Urine Leukocyte Esterase Negative (NEG) Urine RBC 1-2 /HPF (0-2) Urine WBC 1-4 /HPF (0-4) Urine Squamous Epithelial Cells Few /LPF Urine Bacteria 0 /HPF (0-FEW) Urine Mucus Mod /LPF Laboratory Tests Test 05/05/21 22:35 05/05/21 22:45 05/05/21 23:40 05/06/21 09:41 White Blood Count 8.4 x10^3/uL (4.0-11.0) 6.8 x10^3/uL (4.0-11.0) Red Blood Count 4.38 x10^6/uL (3.50-5.40) 4.29 x10^6/uL (3.50-5.40) Hemoglobin 13.1 g/dL (12.0-15.5) 12.9 g/dL (12.0-15.5) Hematocrit 38.3 % (36.0-47.0) 37.9 % (36.0-47.0) Mean Corpuscular Volume 88 fL (79-100) 88 fL (79-100) Mean Corpuscular Hemoglobin 30 pg (25-35) 30 pg (25-35) Mean Corpuscular Hemoglobin Concent 34 g/dL (31-37) 34 g/dL (31-37) Red Cell Distribution Width 13.6 % (11.5-14.5) 13.6 % (11.5-14.5) Platelet Count 211 x10^3/uL (140-400) 223 x10^3/uL (140-400) Neutrophils (%) (Auto) 74 % (31-73) 76 % (31-73) Lymphocytes (%) (Auto) 16 % (24-48) 16 % (24-48) Monocytes (%) (Auto) 8 % (0-9) 6 % (0-9) Eosinophils (%) (Auto) 1 % (0-3) 1 % (0-3) Basophils (%) (Auto) 1 % (0-3) 1 % (0-3) Neutrophils # (Auto) 6.2 x10^3/uL (1.8-7.7) 5.2 x10^3/uL (1.8-7.7) Lymphocytes # (Auto) 1.4 x10^3/uL (1.0-4.8) 1.1 x10^3/uL (1.0-4.8) Monocytes # (Auto) 0.7 x10^3/uL (0.0-1.1) 0.4 x10^3/uL (0.0-1.1) Eosinophils # (Auto) 0.1 x10^3/uL (0.0-0.7) 0.1 x10^3/uL (0.0-0.7) Basophils # (Auto) 0.1 x10^3/uL (0.0-0.2) 0.0 x10^3/uL (0.0-0.2) Sodium Level 139 mmol/L (136-145) 140 mmol/L (136-145) Potassium Level 3.6 mmol/L (3.5-5.1) 3.5 mmol/L (3.5-5.1) Chloride Level 103 mmol/L (98-107) 104 mmol/L (98-107) Carbon Dioxide Level 25 mmol/L (21-32) 26 mmol/L (21-32) Anion Gap 11 (6-14) 10 (6-14) Blood Urea Nitrogen 19 mg/dL (7-20) 15 mg/dL (7-20) Creatinine 1.4 mg/dL (0.6-1.0) 1.5 mg/dL (0.6-1.0) Estimated GFR (Cockcroft-Gault) 37.4 34.5 BUN/Creatinine Ratio 14 (6-20) 10 (6-20) Glucose Level 131 mg/dL (70-99) 148 mg/dL (70-99) Calcium Level 9.0 mg/dL (8.5-10.1) 8.8 mg/dL (8.5-10.1) Total Bilirubin 0.3 mg/dL (0.2-1.0) 0.3 mg/dL (0.2-1.0) Aspartate Amino Transf (AST/SGOT) 28 U/L (15-37) 12 U/L (15-37) Alanine Aminotransferase (ALT/SGPT) 35 U/L (14-59) 41 U/L (14-59) Alkaline Phosphatase 82 U/L (46-116) 77 U/L (46-116) Troponin I Quantitative < 0.017 ng/mL (0.000-0.055) < 0.017 ng/mL (0.000-0.055) XL-Vno-P-Type Natriuretic Peptide 551 pg/mL (0-124) Total Protein 7.4 g/dL (6.4-8.2) 7.2 g/dL (6.4-8.2) Albumin 3.4 g/dL (3.4-5.0) 3.3 g/dL (3.4-5.0) Albumin/Globulin Ratio 0.9 (1.0-1.7) 0.8 (1.0-1.7) SARS-CoV-2 Antigen (Rapid) Negative (NEGATIVE) Urine Collection Type Unknown Urine Color Yellow Urine Clarity Clear Urine pH 5.5 (<5.0-8.0) Urine Specific [place] 1.025 (1.000-1.030) Urine Protein Negative mg/dL (NEG-TRACE) Urine Glucose (UA) Negative mg/dL (NEG) Urine Ketones (Stick) 40 mg/dL (NEG) Urine Blood Negative (NEG) Urine Nitrite Negative (NEG) Urine Bilirubin Negative (NEG) Urine Urobilinogen Dipstick 0.2 mg/dL (0.2 mg/dL) Urine Leukocyte Esterase Negative (NEG) Urine RBC 1-2 /HPF (0-2) Urine WBC 1-4 /HPF (0-4) Urine Squamous Epithelial Cells Few /LPF Urine Bacteria 0 /HPF (0-FEW) Urine Mucus Mod /LPF Assessment/Plan Assessment/Plan 1. Paroxysmal atrial fibrillation s/p cardioversion in the past, presently maintaining sinus rhythm. Continue Eliquis for stroke prophylaxis. 2. Jaw pain most probably secondary to trigeminal neuralgia. Doubt cardiac etiology. Lexiscan nuclear stress test in August 2020 did not show any significant ischemia. 3. Hypertension: Controlled Thank you for your consultation JESSICA AGUILAR MD May 06, 2021 12:42
[2021-05-06] MEDS ORDERED: LISINOPRIL 10 MG TABLET PO SCH (21:00)
== END 2021-05-06 11:00 | disposition home or self-care (01) ==
LOC: ER 21:28 → ED HOLD 23:03 → 6 SOUTH 05-06 01:34
PROVIDERS: ADMIT Family Medicine; ATTEND Family Medicine
DX: I48.0 Paroxysmal atrial fibrillation (principal); G50.0 Trigeminal neuralgia; E11.22 Type 2 diabetes mellitus with diabetic chronic kidney disease; I12.9 Hypertensive chronic kidney disease with stage 1 through stage 4 chronic kidney disease, or unspecified chronic kidney disease; N18.30 Chronic kidney disease, stage 3 unspecified; Z20.822 Contact with and (suspected) exposure to COVID-19; Z68.41 Body mass index [BMI] 40.0-44.9, adult; I25.10 Atherosclerotic heart disease of native coronary artery without angina pectoris; F41.9 Anxiety disorder, unspecified; E66.01 Morbid (severe) obesity due to excess calories; E78.00 Pure hypercholesterolemia, unspecified; Z79.899 Other long term (current) drug therapy; Z79.01 Long term (current) use of anticoagulants
CPT/HCPCS: 36415; 70450; 71045; 80053; 81001; 83880; 84484; 85025; 87426; 93005; 96374; 99285; G0378; J3010; U0003; U0005; G0379

== ENCOUNTER → 2021-05-24 | Outpatient (CLI) | payer MEDICARE ==
[2021-05-06 08:57] VITALS: BP 131/68
[~2021-05-24] MED LIST changes: +FOLI200T13 PO; +INUL2TAB4 PO; +LACT1TAB24 PO
[2021-05-24 10:32] LABS: ALBUMIN 3.5 g/dL (3.4-5.0); ALBUMIN/GLOBULIN RATIO 0.8 (1.0-1.7); CALCIUM 9.1 mg/dL (8.5-10.1); CREATININE 1.7 mg/dL (0.6-1.0); GFR 29.9; POTASSIUM 3.8 mmol/L (3.5-5.1); TOTAL BILIRUBIN 0.5 mg/dL (0.2-1.0); TOTAL PROTEIN 7.8 g/dL (6.4-8.2)
--- NOTE | 2021-05-24 16:05 | CARD ---
MR#: [id number] Date of Study: 05/24/2021 Ordering Physician: GLENDA LERNER, Referring Physician: GLENDA LERNER, Tech: Starr Tam [facility] APPROVED REPORT EXAM: Two-dimensional and M-mode echocardiogram with Doppler and color Doppler. Other Information Quality : AverageHR: 57bpm Rhythm : NSR INDICATION Atrial Fibrillation RISK FACTORS Hypertension Obesity Hyperlipidemia 2D DIMENSIONS RVDd4.0 (2.9-3.5cm)Left Atrium(2D)4.6 (1.6-4.0cm) IVSd1.1 (0.7-1.1cm)Aortic Root(2D)3.0 (2.0-3.7cm) LVDd5.5 (3.9-5.9cm)LVOT Diameter2.2 (1.8-2.4cm) PWd1.1 (0.7-1.1cm)LVDs3.9 (2.5-4.0cm) FS (%) 29.2 %SV81.5 ml LVEF(%)55.5 (>50%) Aortic Valve AoV Peak Ryan.173.6cm/sAoV VTI42.5cm AO Peak GR.12.1mmHgLVOT Peak Ryan.103.4cm/s AO Mean GR.6mmHgAVA (VMAX)2.34cm2 Mitral Valve MV E Wenvxvya57.3cm/sMV DECEL [id number] MV A Cktagnjz351.4cm/sE/A Ratio0.9 Tricuspid Valve TR P. Hgqieavm944as/sTR Peak Gr.22mmHg LEFT VENTRICLE The left ventricle is normal size. There is borderline to mild concentric left ventricular hypertroph y. The left ventricular systolic function is normal. Estimated ejection fraction 55-60%. There is no rmal LV segmental wall motion. Transmitral Doppler flow pattern is Grade I-abnormal relaxation patter n. RIGHT VENTRICLE The right ventricle is normal size. There is normal right ventricular wall thickness. The right ventr icular systolic function is normal. ATRIA The left atrium size is normal. The right atrium size is normal. The interatrial septum is intact wit h no evidence for an atrial septal defect or patent foramen ovale as noted on 2-D or Doppler imaging. AORTIC VALVE The aortic valve is normal in structure and function. Doppler and Color Flow revealed no significant aortic regurgitation. There is no significant aortic valvular stenosis. MITRAL VALVE The mitral valve is normal in structure and function. There is no evidence of mitral valve prolapse. There is no mitral valve stenosis. Doppler and Color-flow revealed mild mitral regurgitation. TRICUSPID VALVE The tricuspid valve is normal in structure and function. Doppler and Color Flow revealed trace tricus pid regurgitation. Estimated PAP 25 mmHg. There is no tricuspid valve stenosis. PULMONIC VALVE The pulmonary valve is normal in structure and function. Doppler and Color Flow revealed mild pulmoni c valvular regurgitation. GREAT VESSELS The aortic root is normal in size. The ascending aorta is normal in size. The IVC is normal in size a nd collapses >50% with inspiration. PERICARDIAL EFFUSION There is no evidence of significant pericardial effusion. Critical Notification Critical Value: No <Conclusion> The left ventricular systolic function is normal. Estimated ejection fraction 55-60%. There is normal LV segmental wall motion. Transmitral Doppler flow pattern is Grade I-abnormal relaxation pattern. Mild mitral regurgitation. Trace tricuspid regurgitation. Estimated PAP 25 mmHg. There is no evidence of significant pericardial effusion. Signed by : Lenny Rubio, Electronically Approved : 05/24/2021 16:04:53
== END ==
LOC: ECHO 09:22
PROVIDERS: ATTEND Internal Medicine Cardiovascular Disease
DX: I08.8 Other rheumatic multiple valve diseases (principal); I10 Essential (primary) hypertension
CPT/HCPCS: 36415; 80053; 83880; 93306